=== PATIENT | female | born 1935 | race Caucasian/White ===

== ENCOUNTER 2021-04-22 15:49 | Inpatient (IN) | payer MEDICARE ==
[2021-04-22 16:56] LABS: Anisocytosis Slight; Basophils % (A) 0 %; Eosinophils # (A) 0.1 k/uL (0-0.7); Eosinophils % (A) 0 %; HCT 33.6 % (34.0-46.0); HGB 10.7 gm/dL (11.4-16.0); Lymphocytes # (A) 0.3 k/uL (1.0-4.8); Lymphocytes % (A) 1 %; MCH 29.8 pg (25.0-35.0); MCHC 31.9 g/dL (31.0-37.0); MCV 93.3 fL (80.0-100.0); Mean Platelet Volume 8.6; Monocytes # (A) 0.2 k/uL (0-1.0); Monocytes % (A) 1 %; Neutrophils # (A) 17.7 k/uL (1.3-7.7); Neutrophils % (A) 97 %; Platelet Count 148 k/uL (150-450); RDW 16.1 % (11.5-15.5); WBC 18.2 k/uL (3.8-10.6)
[2021-04-22 17:04] LABS: INR 1.1 (<1.2); Partial Thromboplastin Time 24.1 sec (22.0-30.0); Prothrombin Time 11.8 sec (9.0-12.0)
[2021-04-22 17:09] LABS: Albumin 3.1 g/dL (3.5-5.0); C Reactive Protein 1.8 mg/dL (<1.0); Calcium 8.2 mg/dL (8.4-10.2); Magnesium 2.2 mg/dL (1.6-2.3); Total Bilirubin 0.6 mg/dL (0.2-1.3); Total Protein 5.6 g/dL (6.3-8.2)
[2021-04-22 17:13] LABS: Potassium 6.2 mmol/L (3.5-5.1)
[2021-04-22] MEDS ORDERED: ALBUTEROL HFA INHALER INHALATION STA (17:13)
[2021-04-22] MEDS ORDERED: DEXAMETHASONE SOD PHOSPHATE 10 MG/ML 1 ML VIAL IVP STA (17:13)
--- NOTE | 2021-04-22 17:14 | ED ---
General Adult HPI - General Source: patient, EMS Mode of arrival: EMS Limitations: no limitations <Jordon Mott - Last Filed: 04/22/21 19:19> <Brian Rosario - Last Filed: 04/23/21 00:18> - General Chief complaint: Shortness of Breath Stated complaint: ASPEN Time Seen by Provider: 04/22/21 16:07 - History of Present Illness Initial comments: 85-year-old female with a past medical history of atrial fibrillation, COPD, diabetes mellitus, GERD, hyperlipidemia presents to the emergency room for a chief complaint of shortness of breath. Patient is covid positive as of 5 days ago. Patient wears 3 L nasal cannula at home, was apparently on 80% and so they had to increase it to 5. Patient was sent in to the emergency room. Patient states she has felt short of breath for months, generally a poor historian .Patient has no other complaints at this time including chest pain, abdominal pain, nausea or vomiting, headache, or visual changes. Additional history was obtained from [facility] at [facility]. Patient is a new dialysis patient from February. Patient is a Thursday dialysis patient. Fortunately this past Thursday patient had incomplete dialysis session and was only on for 2 hours 8 minutes. This is secondary to a cath flow issue. She has been increasingly short of breath and requiring oxygen according to nurse practitioner. (Jordon Mott) - Related Data Home Medications Medication Instructions Recorded Confirmed Amiodarone [Cordarone] 200 mg PO DAILY@0600 04/07/21 04/22/21 Apixaban [Eliquis] 2.5 mg PO BID@0600,1700 04/07/21 04/22/21 Atorvastatin [Lipitor] 10 mg PO HS@2100 04/07/21 04/22/21 Calcium Carbonate [Tums] 500 mg PO BID@0800,1700 04/07/21 04/22/21 Famotidine [Pepcid] 20 mg PO DAILY@0600 04/07/21 04/22/21 Fluticasone/Vilanterol [Breo 1 puff INHALATION RT-DAILY@0600 04/07/21 04/22/21 Ellipta 200-25 Mcg Inhaler] HYDROcodone/APAP 5-325MG [[place] 1 tab PO QID PRN 04/07/21 04/22/21 5-325] INSULIN ASPART (NovoLOG) [NovoLOG See Protocol SQ ACHS 04/07/21 04/22/21 (formulary)] Ipratropium-Albuterol Nebulize 3 ml INHALATION RT-QID PRN 04/07/21 04/22/21 [Duoneb 0.5 mg-3 mg/3 ml Soln] Levothyroxine Sodium [Levoxyl] 88 mcg PO DAILY@0600 04/07/21 04/22/21 Metoprolol Tartrate [Lopressor] 25 mg PO BID@0800,1700 04/07/21 04/22/21 Mirtazapine 7.5 mg PO HS@2100 04/07/21 04/22/21 Sevelamer [Renvela] 800 mg PO TID@0800,1200,1700 04/07/21 04/22/21 dronabinoL [Marinol] 2.5 mg PO BID@0600,1700 04/07/21 04/22/21 Cefdinir 300 mg PO BID@0600,2100 04/22/21 04/22/21 Liquacel 30 ml PO BID@1200,1700 04/22/21 04/22/21 Menthol-Zinc Oxide Oint 1 applic TOPICAL BID 04/22/21 04/22/21 [Calmoseptine Oint] bisacodyL [Dulcolax] 10 mg RECTAL DAILY PRN 04/22/21 04/22/21 dexAMETHasone ORAL [Hexadrol] 6 mg PO DAILY@0600 04/22/21 04/22/21 Allergies Allergy/AdvReac Type Severity Reaction Status Date / Time No Known Allergies Allergy Verified 04/22/21 18:19 Review of Systems ROS Other: All systems not noted in ROS Statement are negative. <Jordon Mott - Last Filed: 04/22/21 19:19> ROS Other: All systems not noted in ROS Statement are negative. <Brian Rosario - Last Filed: 04/23/21 00:18> ROS Statement: Those systems with pertinent positive or pertinent negative responses have been documented in the HPI. Past Medical History Past Medical History: Atrial Fibrillation, COPD, Diabetes Mellitus, GERD/Reflux, Hyperlipidemia History of Any Multi-Drug Resistant Organisms: None Reported Past Anesthesia/Blood Transfusion Reactions: No Reported Reaction Past Psychological History: No Psychological Hx Reported Smoking Status: Never smoker <Jordon Mott - Last Filed: 04/22/21 19:19> General Exam Limitations: no limitations General appearance: alert, in no apparent distress Head exam: Present: atraumatic Eye exam: Present: normal appearance, PERRL, EOMI. Absent: scleral icterus, conjunctival injection ENT exam: Present: normal exam, mucous membranes moist Neck exam: Present: normal inspection, full ROM. Absent: tenderness Respiratory exam: Present: normal lung sounds bilaterally. Absent: respiratory distress, wheezes Cardiovascular Exam: Present: regular rate, normal rhythm, normal heart sounds GI/Abdominal exam: Present: soft, normal bowel sounds. Absent: distended, tenderness <Jordon Mott - Last Filed: 04/22/21 19:19> Course Vital Signs 04/22/21 04/22/21 04/22/21 15:51 17:44 18:01 Temperature 98.9 F Pulse Rate 80 95 98 Pulse Rate [ Left Supine Brachial] Respiratory 20 18 20 Rate Blood Pressure 110/60 125/76 Blood Pressure [Left Arm Supine] O2 Sat by Pulse 100 91 L Oximetry 04/22/21 04/22/21 04/22/21 20:19 20:53 22:20 Temperature 98.8 F Pulse Rate 101 H 106 H Pulse Rate [ 93 Left Supine Brachial] Respiratory 22 22 24 Rate Blood Pressure 127/86 136/89 Blood Pressure 153/96 [Left Arm Supine] O2 Sat by Pulse 91 L 90 L Oximetry EKG Findings - EKG Comments: EKG Findings:: Atrial flutter, ventricular rate 90, QRS duration 116, QTc 474 <Jordon Mott - Last Filed: 04/22/21 19:19> Medical Decision Making - Lab Data Result diagrams: 04/22/21 16:43 04/22/21 16:43 <Jordon Mott - Last Filed: 04/22/21 19:19> - Lab Data Result diagrams: 04/22/21 16:43 04/22/21 23:03 <Brian Rosario - Last Filed: 04/23/21 00:18> - Medical Decision Making Patient is requiring 5-6 L nasal cannula. She is moderately short of breath on exam. CBC does show leukocytosis which appears chronic for patient. CMP does show a creatinine of 9.56 as well as a potassium of 6.2. Chest x-ray is requiring new mild pulmonary congestion and interstitial edema consistent with CHF and small pleural effusions. Case was discussed with Dr. Lozoya and patient will be receiving emergent dialysis tonight. Given a dose of lasix as she does produce some urine. Case discussed with Dr. Jo who does except admission. We will draw cultures off of her cath and hold Rocephin until she gets dialysis. Confirmed patient is a DO NOT RESUSCITATE from [facility]. Blood cultures/abx were not obtained within 3 hours as admitting requested that cultures be drawn from patient's Hemo-Cath which required communications technologist (Jordon Mott) - Lab Data Lab Results 04/22/21 04/22/21 04/22/21 Range/Units 16:43 16:43 16:43 WBC 18.2 H (3.8-10.6) k/uL RBC 3.60 L (3.80-5.40) m/uL Hgb 10.7 L (11.4-16.0) gm/dL Hct 33.6 L (34.0-46.0) % MCV 93.3 (80.0-100.0) fL MCH 29.8 (25.0-35.0) pg MCHC 31.9 (31.0-37.0) g/dL RDW 16.1 H (11.5-15.5) % Plt Count 148 L (150-450) k/uL MPV 8.6 Neutrophils % 97 % Lymphocytes % 1 % Monocytes % 1 % Eosinophils % 0 % Basophils % 0 % Neutrophils # 17.7 H (1.3-7.7) k/uL Lymphocytes # 0.3 L (1.0-4.8) k/uL Monocytes # 0.2 (0-1.0) k/uL Eosinophils # 0.1 (0-0.7) k/uL Basophils # 0.0 (0-0.2) k/uL Anisocytosis Slight PT 11.8 (9.0-12.0) sec INR 1.1 (<1.2) APTT 24.1 (22.0-30.0) sec Sodium 135 L (137-145) mmol/L Potassium 6.2 H* (3.5-5.1) mmol/L Chloride 101 (98-107) mmol/L Carbon Dioxide 21 L (22-30) mmol/L Anion Gap 13 mmol/L BUN 100 H (7-17) mg/dL Creatinine 9.56 H* (0.52-1.04) mg/dL Est GFR (CKD-EPI)AfAm 4 (>60 ml/min/1.73 sqM) Est GFR (CKD-EPI)NonAf 3 (>60 ml/min/1.73 sqM) Glucose 95 (74-99) mg/dL Calcium 8.2 L (8.4-10.2) mg/dL Magnesium 2.2 (1.6-2.3) mg/dL Ferritin 1498.0 H (10.0-291.0) ng/mL Total Bilirubin 0.6 (0.2-1.3) mg/dL AST 25 (14-36) U/L ALT 26 (4-34) U/L Alkaline Phosphatase 86 (38-126) U/L Lactate Dehydrogenase 1020 H (313-618) U/L C-Reactive Protein 1.8 H (<1.0) mg/dL Total Protein 5.6 L (6.3-8.2) g/dL Albumin 3.1 L (3.5-5.0) g/dL Procalcitonin (0.02-0.09) ng/mL Coronavirus (PCR) (Not Detectd) 04/22/21 04/22/21 Range/Units 16:43 16:43 WBC (3.8-10.6) k/uL RBC (3.80-5.40) m/uL Hgb (11.4-16.0) gm/dL Hct (34.0-46.0) % MCV (80.0-100.0) fL MCH (25.0-35.0) pg MCHC (31.0-37.0) g/dL RDW (11.5-15.5) % Plt Count (150-450) k/uL MPV Neutrophils % % Lymphocytes % % Monocytes % % Eosinophils % % Basophils % % Neutrophils # (1.3-7.7) k/uL Lymphocytes # (1.0-4.8) k/uL Monocytes # (0-1.0) k/uL Eosinophils # (0-0.7) k/uL Basophils # (0-0.2) k/uL Anisocytosis PT (9.0-12.0) sec INR (<1.2) APTT (22.0-30.0) sec Sodium (137-145) mmol/L Potassium (3.5-5.1) mmol/L Chloride (98-107) mmol/L Carbon Dioxide (22-30) mmol/L Anion Gap mmol/L BUN (7-17) mg/dL Creatinine (0.52-1.04) mg/dL Est GFR (CKD-EPI)AfAm (>60 ml/min/1.73 sqM) Est GFR (CKD-EPI)NonAf (>60 ml/min/1.73 sqM) Glucose (74-99) mg/dL Calcium (8.4-10.2) mg/dL Magnesium (1.6-2.3) mg/dL Ferritin (10.0-291.0) ng/mL Total Bilirubin (0.2-1.3) mg/dL AST (14-36) U/L ALT (4-34) U/L Alkaline Phosphatase (38-126) U/L Lactate Dehydrogenase (313-618) U/L C-Reactive Protein (<1.0) mg/dL Total Protein (6.3-8.2) g/dL Albumin (3.5-5.0) g/dL Procalcitonin 1.05 H (0.02-0.09) ng/mL Coronavirus (PCR) Detected A (Not Detectd) Disposition Is patient prescribed a controlled substance at d/c from ED?: No Time of Disposition: 18:13 <Jordon Mott - Last Filed: 04/22/21 19:19> <Brian Rosario - Last Filed: 04/23/21 00:18> Clinical Impression: CHF (congestive heart failure), Pleural effusion, left, Volume overload, Hyperkalemia, Acute respiratory failure with hypoxia, COVID-19, Renal failure syndrome Disposition: ADMITTED IP TO THIS HOSP
[2021-04-22] MEDS ORDERED: DEXTROSE 50% SYRINGE 50 ML IVP ONE (17:31)
[2021-04-22] MEDS ORDERED: ALBUTEROL NEB (CONC) 2.5 MG/0.5 ML INHALATION ONE (17:31)
[2021-04-22] MEDS ORDERED: SODIUM BICARB 8.4% 50 ML SYR (1 MEQ/ML) IV ONE (17:31)
[2021-04-22] MEDS ORDERED: INSULIN REGULAR 100 UNIT/ML VIAL (IV) IV ONE (17:31)
[2021-04-22] MEDS ORDERED: FUROSEMIDE 10 MG/ML 4 ML VIAL IV STA (17:41)
--- NOTE | 2021-04-22 17:44 | XR ---
EXAMINATION TYPE: XR chest 1V portable DATE OF EXAM: 04/22/2021 COMPARISON: 04/14/2021 HISTORY: Short of breath TECHNIQUE: Single view FINDINGS: There is pulmonary vascular congestion. There is slight blunting of the costophrenic angles . There are chest leads. There is right central venous catheter with tip in the superior vena cava. IMPRESSION: There is new mild pulmonary congestion and interstitial edema compared to old exam and co nsistent with congestive heart failure. Small pleural effusions.
[2021-04-22] MEDS ORDERED: cefTRIAXone IN SWFI 1,000 MG/10 ML SYRINGE IVP STA (18:13)
[2021-04-22] MEDS ORDERED: NALOXONE 0.4 MG/ML 1 ML VIAL IV PRN (18:14)
[2021-04-22] MEDS ORDERED: MELATONIN 5 MG TABLET PO PRN (23:12)
[2021-04-22] MEDS ORDERED: HYDROcodone/APAP 5-325MG 1 EACH TAB PO PRN (23:12)
[2021-04-22] MEDS ORDERED: IPRATROPIUM-ALBUTEROL 3 ML NEB INHALATION PRN (23:12)
--- NOTE | 2021-04-22 23:13 | P.HPIM ---
History of Present Illness H&P Date: 04/22/21 The patient is an 85-year-old female with an extensive PMH including hypertension, ESRD on hemodialysis, hyperlipidemia, A. fib on Eliquis, type II DM, and COPD with chronic hypoxic respiratory failure on 3 L nasal cannula oxygen continuously, resident of [facility] who was sent in due to complaints of shortness of breath. The patient was confused at time of interview and thereby history supplemented from the chart. The patient was reportedly found to be COVID+ 5 days ago and her oxygen had to be turned up to 5 L/min. Furthermore, the patients last dialysis session was cut short this past Thursday due to inadequate flow from the dialysis catheter. Due to the worsening shortness of breath and inability to undergo complete dialysis, the patient was sent to the emergency room. At time of interview, the patient was undergoing hemodialysis. She reported feeling better but did state a chronic nonproductive cough for several years. She denied any active complaints otherwise. She denied fever, chills, urinary complaints, nausea, vomiting, abdominal pain, diarrhea. Chest x-ray the emergency room was consistent with fluid overload. EKG revealed atrial flutter with variable AV block at 90 bpm. Laboratory evaluation was remarkable for leukocytosis of 18.2, hemoglobin 10.7 (at baseline), platelet count 148 (baseline 160), sodium 135, potassium 6.2, BUN 100, creatinine 9.56, and coronavirus PCR positive. Review of systems: Pertinent positives and negatives as discussed in HPI, a complete review of systems was performed and all other systems are negative. Physical examination: General: non toxic, no distress, appears at stated age, normal weight Derm: no unusual rashes/lesions, abdominal suprapubic ecchymosis noted, warm, dry Head: atraumatic, normocephalic, symmetric Eyes: EOMI, no lid lag, anicteric sclera, pupils equal round reactive to light ENT: Nose and ears atraumatic, no thrush, no pharyngeal erythema Neck: No thyromegaly, no cervical lymphadenopathy, trachea midline, supple Mouth: no lip lesion, mucus membranes moist Cardiovascular: S1S2 reg, no murmur, positive posterior tibial pulse bilateral, no edema, capillary refill less than 2 seconds, right chest dialysis access catheter noted Lungs: Mild bibasilar rales, no wheezing or rhonchi, no accessory muscle use Abdominal: soft, nontender to palpation, no guarding, no appreciable organomegaly, normal bowel sounds Ext: no gross muscle atrophy, muscle strength 5 out of 5 in all 4 extremities grossly, no contractures, Neuro: CN II-XI grossly intact, light touch intact all 4 extremities, finger to nose within normal limits, Psych: Alert, oriented to person and place, not fully oriented to time Assessment/plan Acute on chronic hypoxic respiratory failure secondary to COVID 19 pneumonia -Supplemental oxygen -Continue with Decadron -Zinc, vitamin C, vitamin D, melatonin ESRD on hemodialysis with hyperkalemia -Undergoing hemanalysis currently Leukocytosis -Unclear source -Follow-up UA -F/u blood cultures Chronic conditions: HTN, HLD, COPD, Afib -C/w home meds DVT prophylaxis -Eliquis The patient is admitted with an anticipated greater than 2 midnight stay for evaluation of SOB CODE STATUS: No Code Discussed with: Patient Anticipated discharge date: 2-[address]: [facility] Past Medical History Past Medical History: Atrial Fibrillation, COPD, Diabetes Mellitus, GERD/Reflux, Hyperlipidemia History of Any Multi-Drug Resistant Organisms: None Reported Past Anesthesia/Blood Transfusion Reactions: No Reported Reaction Past Psychological History: No Psychological Hx Reported Smoking Status: Never smoker Medications and Allergies Home Medications Medication Instructions Recorded Confirmed Type Amiodarone [Cordarone] 200 mg PO DAILY@0600 04/07/21 04/22/21 History Apixaban [Eliquis] 2.5 mg PO BID@0600,1700 04/07/21 04/22/21 History Atorvastatin [Lipitor] 10 mg PO HS@2100 04/07/21 04/22/21 History Calcium Carbonate [Tums] 500 mg PO BID@0800,1700 04/07/21 04/22/21 History Famotidine [Pepcid] 20 mg PO DAILY@0600 04/07/21 04/22/21 History Fluticasone/Vilanterol [Breo 1 puff INHALATION RT-DAILY@0600 04/07/21 04/22/21 History Ellipta 200-25 Mcg Inhaler] HYDROcodone/APAP 5-325MG [[place] 1 tab PO QID PRN 04/07/21 04/22/21 History 5-325] INSULIN ASPART (NovoLOG) [NovoLOG See Protocol SQ ACHS 04/07/21 04/22/21 History (formulary)] Ipratropium-Albuterol Nebulize 3 ml INHALATION RT-QID PRN 04/07/21 04/22/21 History [Duoneb 0.5 mg-3 mg/3 ml Soln] Levothyroxine Sodium [Levoxyl] 88 mcg PO DAILY@0600 04/07/21 04/22/21 History Metoprolol Tartrate [Lopressor] 25 mg PO BID@0800,1700 04/07/21 04/22/21 History Mirtazapine 7.5 mg PO HS@2100 04/07/21 04/22/21 History Sevelamer [Renvela] 800 mg PO TID@0800,1200,1700 04/07/21 04/22/21 History dronabinoL [Marinol] 2.5 mg PO BID@0600,1700 04/07/21 04/22/21 History Cefdinir 300 mg PO BID@0600,2100 04/22/21 04/22/21 History Liquacel 30 ml PO BID@1200,1700 04/22/21 04/22/21 History Menthol-Zinc Oxide Oint 1 applic TOPICAL BID 04/22/21 04/22/21 History [Calmoseptine Oint] bisacodyL [Dulcolax] 10 mg RECTAL DAILY PRN 04/22/21 04/22/21 History dexAMETHasone ORAL [Hexadrol] 6 mg PO DAILY@0600 04/22/21 04/22/21 History Allergies Allergy/AdvReac Type Severity Reaction Status Date / Time No Known Allergies Allergy Verified 04/22/21 18:19 Physical Exam Vitals: Vital Signs Temp Pulse Pulse Resp BP BP Pulse Ox 04/22/21 20:53 98.8 F 93 22 153/96 04/22/21 20:19 101 H 22 127/86 91 L 04/22/21 18:01 98 20 04/22/21 17:44 95 18 125/76 91 L 04/22/21 15:51 98.9 F 80 20 110/60 100 Intake and Output 04/22/21 04/22/21 04/22/21 06:59 14:59 22:59 Other: Weight 66.678 kg Results CBC & Chem 7: 04/22/21 16:43 04/22/21 16:43 Labs: Abnormal Lab Results - Last 24 Hours (Table) 04/22/21 04/22/21 04/22/21 Range/Units 16:43 16:43 16:43 WBC 18.2 H (3.8-10.6) k/uL RBC 3.60 L (3.80-5.40) m/uL Hgb 10.7 L (11.4-16.0) gm/dL Hct 33.6 L (34.0-46.0) % RDW 16.1 H (11.5-15.5) % Plt Count 148 L (150-450) k/uL Neutrophils # 17.7 H (1.3-7.7) k/uL Lymphocytes # 0.3 L (1.0-4.8) k/uL Sodium 135 L (137-145) mmol/L Potassium 6.2 H* (3.5-5.1) mmol/L Carbon Dioxide 21 L (22-30) mmol/L BUN 100 H (7-17) mg/dL Creatinine 9.56 H* (0.52-1.04) mg/dL Calcium 8.2 L (8.4-10.2) mg/dL Lactate Dehydrogenase 1020 H (313-618) U/L C-Reactive Protein 1.8 H (<1.0) mg/dL Total Protein 5.6 L (6.3-8.2) g/dL Albumin 3.1 L (3.5-5.0) g/dL Coronavirus (PCR) Detected A (Not Detectd)
[2021-04-23 00:11] LABS: Glucose,Whole Blood 133 mg/dL (75-99)
[2021-04-23 03:07] LABS: HCT 30.2 % (34.0-46.0); MCH 30.9 pg (25.0-35.0); MCHC 33.2 g/dL (31.0-37.0); MCV 92.9 fL (80.0-100.0); Mean Platelet Volume 8.1; Platelet Count 116 k/uL (150-450); RBC 3.24 m/uL (3.80-5.40); RDW 15.6 % (11.5-15.5); WBC 15.1 k/uL (3.8-10.6)
[2021-04-23 03:30] LABS: Calcium 7.5 mg/dL (8.4-10.2); Potassium 5.2 mmol/L (3.5-5.1)
[2021-04-23 05:59] LABS: Glucose,Whole Blood 89 mg/dL (75-99)
[2021-04-23] MEDS ORDERED: APIXABAN 2.5 MG TABLET PO SCH (06:00)
[2021-04-23] MEDS: INSULIN ASPART (NovoLOG) 100 UNIT/ML VIAL SQ SCH ×4 (06:35→22:20)
[2021-04-23] MEDS: LEVOTHYROXINE 88 MCG TAB PO SCH (06:45)
[2021-04-23] MEDS: AMIODARONE 200 MG TAB PO SCH (06:45)
[2021-04-23] MEDS: METOPROLOL TARTRATE 25 MG TAB PO SCH ×2 (07:51→17:38)
[2021-04-23] MEDS: SYMBICORT 160-4.5 MCG INHALER INHALATION SCH ×3 (08:36→20:24)
[2021-04-23] MEDS: ALBUTEROL HFA INHALER INHALATION PRN ×3 (09:15→15:24)
--- NOTE | 2021-04-23 09:16 | P.CNPUL ---
History of Present Illness Consult date: 04/23/21 Reason for consult: dyspnea, hypoxemia, pneumonia History of present illness: I was asked to evaluate this patient because of an acute on chronic hypoxic respiratory failure secondary to COVID 19 pneumonia. The patient is known to have incisional disease and the patient on hemodialysis. The patient also known to have COPD, chronic atrial fibrillation, hypertension, hyperlipidemia.. The patient is usually on 3 L of oxygen by nasal cannula. The patient is a [facility] resident. The patient was noted to be more short of breath. Note that the patient was hospitalized on 04/07/2021 for respiratory failure and at that time the patient was also treated for volume overload and possible infection the patient was given IV antibiotics and BiPAP for respiratory support. Note that initial over 19 testing on 04/07/2021 was negative. Subsequent testing a 04/12/2021, 04/15/2021 and 04/22/2021 came back all positive. Note that the patient's vaccination status is unknown. She was having issues with oxygenation and her oxygen flow was brought up to 5 L per minute nasal cannula. She undergoes dialysis 3 times a week and her dialysis on Thursday was cut short due to inadequate flow from the dialysis catheter. Based on that, the patient was brought into the hospital for further evaluation. The patient reported some chronic nonproductive cough. She denies having any other active complaints. No reported fever. No reported chills. No nausea. No vomiting. No abdominal pain. No chest pain. Chest x-ray was done in the emergency department was consistent with fluid overload. The patient was sent and was at 15.1 with a hem oglobin of 10 and a platelet count of 116. The sodium was 135 with a potassium level of 6.2 with a chloride of 11 her bicarb level XXI. BUN was 100 and a creatinine was at 9.5. The ferritin level was 1498. The LDH level was 1020 and a CRP level was at 1.8. Total protein was 5.6. LFTs were essentially within normal limits. Calcium level is at 8.2. Coagulation profile was essentially within normal limits. Underwent hemodialysis yesterday and the repeat electrolytes show a sodium level of 131, potassium level is down to 5.2 and the creatinine is down to 6.46 with a BUN of 65. Morning blood sugar is at 89. Overnight, the oxygenation also got more impaired and the patient has been brou ght up to 10 L of Oxymizer nasal cannula. She is on long-term anticoagulant with Eliquis 2.5 mg twice a day. She is also started on Decadron 6 mg IV every 24 hours. Outpatient medications have been ordered resume. Review of Systems Constitutional: Reports fatigue, Reports lethargy, Reports weakness Eyes: denies as per HPI, denies blurred vision, denies bulging eye, denies decreased vision, denies diplopia, denies discharge, denies dry eye, denies irritation, denies itching, denies pain, denies photophobia, denies loss of peripheral vision, denies loss of vision, denies tunnel vision/blind spots Ears: deny: decreased hearing, ear discharge, earache, tinnitus Ears, nose, mouth and throat: Reports as per HPI Breasts: absent: as per HPI, change in shape, gynecomastia, masses, nipple discharge, pain, skin changes, swelling Cardiovascular: Reports decreased exercise tolerance, Reports dyspnea on exertion, Reports irregular heart beat, Reports shortness of breath Respiratory: Reports dyspnea, Reports home oxygen Gastrointestinal: Reports as per HPI Genitourinary: Reports as per HPI (Patient is on dialysis and the patient has a permacath in the right IJ) Menstruation: Reports as per HPI Musculoskeletal: Reports as per HPI Musculoskeletal: absent: ankle pain, ankle stiffness, ankle swelling Integumentary: Reports as per HPI Neurological: Reports as per HPI Psychiatric: Reports as per HPI Endocrine: Reports as per HPI Hematologic/Lymphatic: Reports as per HPI Allergic/Immunologic: Reports as per HPI Past Medical History Past Medical History: Atrial Fibrillation, COPD, Diabetes Mellitus, GERD/Reflux, Hyperlipidemia Additional Past Medical History / Comment(s): End stage renal disease currently on dialysis 3 times a week, COPD, chronic pressure sore failure, [facility] resident History of Any Multi-Drug Resistant Organisms: None Reported Past Anesthesia/Blood Transfusion Reactions: No Reported Reaction Past Psychological History: No Psychological Hx Reported Smoking Status: Never smoker Medications and Allergies Home Medications Medication Instructions Recorded Confirmed Type Amiodarone [Cordarone] 200 mg PO DAILY@0600 04/07/21 04/22/21 History Apixaban [Eliquis] 2.5 mg PO BID@0600,1700 04/07/21 04/22/21 History Atorvastatin [Lipitor] 10 mg PO HS@2100 01/16/22 01/31/22 History Calcium Carbonate [Tums] 500 mg PO BID@0800,1700 04/07/21 04/22/21 History Famotidine [Pepcid] 20 mg PO DAILY@0604/07/21 04/22/21 History Fluticasone/Vilanterol [Breo 1 puff INHALATION RT-DAILY@59904/07/21 04/22/21 History Ellipta 200-25 Mcg Inhaler] HYDROcodone/APAP 5-325MG [[place] 1 tab PO QID PRN 04/07/21 04/22/21 History 5-325] INSULIN ASPART (NovoLOG) [NovoLOG See Protocol SQ ACHS 04/07/21 04/22/21 History (formulary)] Ipratropium-Albuterol Nebulize 3 ml INHALATION RT-QID PRN 04/07/21 04/22/21 History [Duoneb 0.5 mg-3 mg/3 ml Soln] Levothyroxine Sodium [Levoxyl] 88 mcg PO DAILY@0604/07/21 04/22/21 History Metoprolol Tartrate [Lopressor] 25 mg PO BID@0800,169904/07/21 04/22/21 History Mirtazapine 7.5 mg PO HS@209904/07/21 04/22/21 History Sevelamer [Renvela] 800 mg PO TID@0800,1200,169904/07/21 04/22/21 History dronabinoL [Marinol] 2.5 mg PO BID@0600,169904/07/21 04/22/21 History Cefdinir 300 mg PO BID@0600,209904/22/21 04/22/21 History Liquacel 30 ml PO BID@1200,1700 04/22/21 04/22/21 History Menthol-Zinc Oxide Oint 1 applic TOPICAL BID 04/22/21 04/22/21 History [Calmoseptine Oint] bisacodyL [Dulcolax] 10 mg RECTAL DAILY PRN 04/22/21 04/22/21 History dexAMETHasone ORAL [Hexadrol] 6 mg PO DAILY@0600 04/22/21 04/22/21 History Allergies Allergy/AdvReac Type Severity Reaction Status Date / Time No Known Allergies Allergy Verified 04/22/21 18:19 Physical Exam Vitals: Vital Signs Temp Pulse Pulse Pulse Resp BP BP 04/23/21 05:00 98.1 F 110 H 32 H 147/87 04/23/21 04:00 98.4 F 93 19 112/68 04/22/21 22:20 106 H 24 136/89 04/22/21 20:53 98.8 F 93 22 153/96 04/22/21 20:19 101 H 22 127/86 04/22/21 18:01 98 20 04/22/21 17:44 95 18 125/76 04/22/21 15:51 98.9 F 80 20 110/60 Pulse Ox 04/23/21 05:00 91 L 04/23/21 04:00 95 04/22/21 22:20 90 L 04/22/21 20:53 04/22/21 20:19 91 L 04/22/21 18:01 04/22/21 17:44 91 L 04/22/21 15:51 100 Intake and Output 04/22/21 04/23/21 04/23/21 22:59 06:59 14:59 Intake Total 10 0 Balance 10 0 Intake: IV 10 Invasive Line 1 10 Oral 0 Other: Voiding Method Diaper Incontinent # Voids 2 # Bowel Movements 1 Weight 66.678 kg 69 kg GENERAL EXAM: Alert, pleasant, 85-year-old white female on 10 L of oxygen with pulse ox of 93%, symptomatic bunions of the bed, breathing comfortably, c omfortable in no apparent distress. HEAD: Normocephalic/atraumatic. EYES: Normal reaction of pupils, equal size. Conjunctiva pink, sclera white. NOSE: Clear with pink turbinates. THROAT: No erythema or exudates. NECK: No masses, no JVD, no thyroid enlargement, no adenopathy. CHEST: No chest wall deformity. Symmetrical expansion. Right upper chest X-ray hemodialysis catheter is in place, there is a permacath in the right IJ. LUNGS: Equal air entry with no crackles, wheeze, rhonchi or dullness. A few bibasilar crackles present CVS: Regular rate and rhythm, normal S1 and S2, no gallops, no murmurs, no rubs ABDOMEN: Soft, nontender. No hepatosplenomegaly, normal bowel sounds, no guarding or rigidity. EXTREMITIES: No clubbing, no edema, no cyanosis, 2+ pulses and upper and lower extremities. MUSCULOSKELETAL: Muscle strength and tone normal. SPINE: No scoliosis or deformity SKIN: No rashes CENTRAL NERVOUS SYSTEM: Alert and oriented -3. No focal deficits, tone is normal in all 4 extremities. PSYCHIATRIC: Alert and oriented -3. Appropriate affect. Intact judgment and insight. Results - Laboratory Findings CBC and BMP: 04/23/21 02:42 04/23/21 02:42 PT/INR, D-dimer PT 11.8 sec (9.0-12.0) 04/22/21 16:43 INR 1.1 (<1.2) 04/22/21 16:43 Abnormal lab findings: Abnormal Labs 04/22/21 04/22/21 04/22/21 16:43 16:43 16:43 WBC 18.2 H RBC 3.60 L Hgb 10.7 L Hct 33.6 L RDW 16.1 H Plt Count 148 L Neutrophils # 17.7 H Lymphocytes # 0.3 L Sodium 135 L Potassium 6.2 H* Chloride Carbon Dioxide 21 L BUN 100 H Creatinine 9.56 H* POC Glucose (mg/dL) Calcium 8.2 L Ferritin 1498.0 H Lactate Dehydrogenase 1020 H C-Reactive Protein 1.8 H Total Protein 5.6 L Albumin 3.1 L Procalcitonin Coronavirus (PCR) Detected A 04/22/21 04/23/21 04/23/21 16:43 00:10 02:42 WBC 15.1 H RBC 3.24 L Hgb 10.0 L Hct 30.2 L RDW 15.6 H Plt Count 116 L Neutrophils # Lymphocytes # Sodium Potassium Chloride Carbon Dioxide BUN Creatinine POC Glucose (mg/dL) 133 H Calcium Ferritin Lactate Dehydrogenase C-Reactive Protein Total Protein Albumin Procalcitonin 1.05 H Coronavirus (PCR) 04/23/21 02:42 WBC RBC Hgb Hct RDW Plt Count Neutrophils # Lymphocytes # Sodium 131 L Potassium 5.2 H Chloride 97 L Carbon Dioxide BUN 65 H Creatinine 6.46 H POC Glucose (mg/dL) Calcium 7.5 L Ferritin Lactate Dehydrogenase C-Reactive Protein Total Protein Albumin Procalcitonin Coronavirus (PCR) Assessment and Plan Plan: 1. Acute hypoxic respiratory failure , most likely secondary to fluid overload. Chest x-ray showing pulmonary vessel congestion and small effusion the left lung base. The patient was treated for COVID 19 based on an earlier hospitalization. This was an incidental finding. Please refer to the admission that occurred on 04/14/2021. 2. Newly diagnosed COVID-19 infection, patient is asymptomatic, this is a incidental finding as part of the preadmission requirement for ECF placement. Note that patient had a negative COVID-19 PCR on admission on 04/07/2021. Her vaccination status is unclear, patient thinks she is vaccinated, however she is a poor historian she was placed back on Decadron 6 mg by mouth daily. The patient is on long-term articulation with Eliquis 2.5 mg twice a day. 3. chronic CHF with diastolic dysfunction 4. End-stage renal disease on hemodialysis, this was recently initiated after patient sustained acute kidney injury in February following her cholecystectomy. She has a right subclavian temporary hemodialysis catheter in place, she is being dialyzed on Thursday schedule 5. Recent cholecystectomy on 03/08/2021 at [facility] 6. Dementia 7. Chronic A. fib on Eliquis 8. Diabetes mellitus type 2 9. COPD 10. Former smoker, quit smoking 40 years ago, does carry [id number] smoking history 11.Valvular heart disease with mild aortic stenosis and regurgitation, moderate mitral regurgitation, moderate to severe tricuspid regurg and severe pulmonary hypertension with right-sided pressure of 71.4 mmHg 12. CVA 13. Hypertension Plan Noted the patient is still hypoxic despite yesterday's hemodialysis. On examination, the patient is still having increased crackers the mid lower lung santos bilaterally. There may be some ongoing issues with volume overload. She is also known to have COPD and she was infected with COVID 19. Based on all this, I would recommend a repeat hemodialysis ultrafiltration today. This will be [id number] with nephrology. Repeat chest x-ray today. Titrate o xygen for a Saturation above 90%. Proceed with another hemodialysis to optimize volume status Continue antibiotic ventilation with Eliquis 2.5 mg twice a day Utility of Decadron is questionable Monitor the oxygenation and wean down the FiO2 to maintain a saturation above 90% We'll continue to follow. Outpatient medication resume. DNR/DNI CODE STATUS.
--- NOTE | 2021-04-23 09:17 | P.NPCON ---
History of Present Illness - Reason for Consult acute renal failure - History of Present Illness Reason for consultation: Acute kidney injury, hemodialysis dependent. History of present illness: Patient is a 85-year-old female seen in renal consultation for acute kidney injury currently hemodialysis dependent. She is maintained on hemodialysis on a Thursday schedule. From the records it appears that the patient went to hemodialysis on Thursday but the treatment had to be cut short d ue to clotting of the catheter. Patient presented to the hospital with shortness of breath. She underwent hemodialysis last night at 2 L removed. She scheduled to undergo another treatment of hemodialysis today. Patient is resting in bed and is not a very reliable historian. She resides at an extended care facility. She does have history of chronic kidney disease stage III with baseline creatinine is unknown. She is currently on 10 L high flow cannula. Blood pressure stable. No fever. She is also positive for coronavirus. Vital signs are stable. General: The patient appeared well nourished and normally developed. HEENT: Head exam is unremarkable. LUNGS: Breath sounds decreased. HEART: Rate and Rhythm are regular. ABDOMEN: Soft, no distention. EXTREMITITES: No edema. Past Medical History Past Medical History: Atrial Fibrillation, COPD, Diabetes Mellitus, GERD/Reflux, Hyperlipidemia Additional Past Medical History / Comment(s): End stage renal disease currently on dialysis 3 times a week, COPD, chronic pressure sore failure, intermediate resident History of Any Multi-Drug Resistant Organisms: None Reported Past Anesthesia/Blood Transfusion Reactions: No Reported Reaction Past Psychological History: No Psychological Hx Reported Smoking Status: Never smoker Medications and Allergies Home Medications Medication Instructions Recorded Confirmed Type Amiodarone [Cordarone] 200 mg PO DAILY@0600 04/07/21 04/22/21 History Apixaban [Eliquis] 2.5 mg PO BID@0600,1700 04/07/21 04/22/21 History Atorvastatin [Lipitor] 10 mg PO HS@2100 04/07/21 04/22/21 History Calcium Carbonate [Tums] 500 mg PO BID@0800,1700 04/07/21 04/22/21 History Famotidine [Pepcid] 20 mg PO DAILY@0600 04/07/21 04/22/21 History Fluticasone/Vilanterol [Breo 1 puff INHALATION RT-DAILY@0600 04/07/21 04/22/21 History Ellipta 200-25 Mcg Inhaler] HYDROcodone/APAP 5-325MG [[place] 1 tab PO QID PRN 04/07/21 04/22/21 History 5-325] INSULIN ASPART (NovoLOG) [NovoLOG See Protocol SQ ACHS 04/07/21 04/22/21 History (formulary)] Ipratropium-Albuterol Nebulize 3 ml INHALATION RT-QID PRN 04/07/21 04/22/21 History [Duoneb 0.5 mg-3 mg/3 ml Soln] Levothyroxine Sodium [Levoxyl] 88 mcg PO DAILY@0600 04/07/21 04/22/21 History Metoprolol Tartrate [Lopressor] 25 mg PO BID@0800,1700 04/07/21 04/22/21 History Mirtazapine 7.5 mg PO HS@2100 04/07/21 04/22/21 History Sevelamer [Renvela] 800 mg PO TID@0800,1200,1700 04/07/21 04/22/21 History dronabinoL [Marinol] 2.5 mg PO BID@0600,1700 04/07/21 04/22/21 History Cefdinir 300 mg PO BID@0600,2100 04/22/21 04/22/21 History Liquacel 30 ml PO BID@1200,1700 04/22/21 04/22/21 History Menthol-Zinc Oxide Oint 1 applic TOPICAL BID 04/22/21 04/22/21 History [Calmoseptine Oint] bisacodyL [Dulcolax] 10 mg RECTAL DAILY PRN 04/22/21 04/22/21 History dexAMETHasone ORAL [Hexadrol] 6 mg PO DAILY@0600 04/22/21 04/22/21 History Allergies Allergy/AdvReac Type Severity Reaction Status Date / Time No Known Allergies Allergy Verified 04/22/21 18:19 Physical Exam Vitals: Vital Signs Temp Pulse Pulse Pulse Resp BP BP 04/23/21 05:00 98.1 F 110 H 32 H 147/87 04/23/21 04:00 98.4 F 93 19 112/68 04/22/21 22:20 106 H 24 136/89 04/22/21 20:53 98.8 F 93 22 153/96 04/22/21 20:19 101 H 22 127/86 04/22/21 18:01 98 20 04/22/21 17:44 95 18 125/76 04/22/21 15:51 98.9 F 80 20 110/60 Pulse Ox 04/23/21 05:00 91 L 04/23/21 04:00 95 04/22/21 22:20 90 L 04/22/21 20:53 04/22/21 20:19 91 L 04/22/21 18:01 04/22/21 17:44 91 L 04/22/21 15:51 100 Intake and Output 04/22/21 04/23/21 04/23/21 22:59 06:59 14:59 Intake Total 10 0 Balance 10 0 Intake: IV 10 Invasive Line 1 10 Oral 0 Other: Voiding Method Diaper Incontinent # Voids 2 # Bowel Movements 1 Weight 66.678 kg 69 kg Results - Lab Results Most recent lab results Calcium 7.5 mg/dL (8.4-10.2) L 04/23/21 02:42 Magnesium 2.2 mg/dL (1.6-2.3) 04/22/21 16:43 04/23/21 02:42 04/23/21 02:42 Assessment and Plan Plan: Assessment: 1. Acute kidney injury, currently hemodialysis dependent due to ATN in February 2021. 2. History of chronic kidney disease stage IIIb with unknown baseline renal function. 3. Volume overload. 4. Acute hypoxic respiratory failure. 5. COVID-19 infection. 6. Hyperkalemia secondary to acute kidney injury. Improved postdialysis. 7. 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 8. Acute on chronic diastolic CHF with moderate mitral regurgitation, moderate to severe tricuspid regurgitation and severe pulmonary hypertension. Plan: Hemodialysis today. Wean FiO2. No evidence of renal recovery at this time. Thank you for the consult patient. I will continue to follow the patient with you during her hospital stay.
[2021-04-23] MEDS: TIOTROPIUM 2.5 MCG INHALER INHALATION PRN (09:21)
[2021-04-23] MEDS: DEXAMETHASONE SOD PHOSPHATE 10 MG/ML 1 ML VIAL IVP SCH (09:35)
[2021-04-23] MEDS: ASCORBIC ACID 500 MG TAB PO SCH (09:35)
[2021-04-23] MEDS: CHOLECALCIFEROL 125 MCG (5000 IU) TABLET PO SCH (09:35)
[2021-04-23] MEDS: SEVELAMER 800 MG TAB PO SCH ×3 (09:35→17:38)
[2021-04-23] MEDS: ZINC SULFATE 220 MG CAP PO SCH (09:36)
--- NOTE | 2021-04-23 09:52 | XR ---
EXAMINATION TYPE: XR chest 1V portable DATE OF EXAM: 04/23/2021 COMPARISON: Chest x-ray 04/22/2021, 2 view chest x-ray 04/08/2021 HISTORY: Congestive heart failure follow-up TECHNIQUE: Single frontal view of the chest is obtained. FINDINGS: Right-sided jugular central venous catheter is present and stable with the tip overlying t he cavoatrial junction. There is no evident pneumothorax. Interstitium is increased. Patchy basilar d ensity persists. There is a spinal curvature, spondylosis. Heart is likely enlarged, stable. Aorta is dense. There may be a prominent epicardial fat pad. Question mitral annular calcification. IMPRESSION: There may be a component of interstitial lung disease, interstitial edema, difficult to exclude basilar effusion, atelectasis versus edema, correlate to exclude pneumonia
[2021-04-23 10:14] LABS: Hepatitis B Surface AB- Quant 3.5 mIU/mL; Hepatitis B Surface Antibody Nonreactive (Nonreactive); Hepatitis B Surface Antigen Nonreactive (Nonreactive)
--- NOTE | 2021-04-23 11:21 | CDI ---
Documentation Clarification Form Date: 04/23/2021 11:10:59 AM From: Minda Alberto CCS, CCDS Admit Date: 04/22/2021 06:14:00 PM Patient Name: Jailene Veliz Visit Number: [id number] Discharge Date: ATTENTION: The Clinical Documentation Specialists (CDI) and [facility] Coding Staff appreciate your assistance in clarifying documentation. Please respond to the clarification below the line at the bottom and electronically sign. The CDI & [facility] Coding staff will review the response and follow-up if needed. Please note: Queries are made part of the Legal Health Record. If you have any questions, please contact the author of this message via ITS. Dr. Herbert Berry: Per the 04/23 Pulmonary Consult and the 04/23 Nephrology Consult, Chronic pressure sore is documented in the patient's Past Medical History. Per the 04/23 Nursing Wound Assessment: Pressure Injury, POA, Stage II is documented. Additional clarification regarding the stage of the pressure ulcer is requested. History/Risk Factors per the 04/22 H/P: Acute on Chronic Hypoxic Respiratory Failure secondary to COVID 19 Pneumonia, ESRD on Hemodialysis with Hyperkalemia, Leukocytosis, Hypertension, Hyperlipidemia, COPD, Atrial fibrillation. Clinical Indicators: Presented to the ED via EMS on 04/22 from a custodial with SOB. COVID positive 5 days ago. Wears 3L nc O2 normally, PO was 80%, O2 increased to 5. Admit with CHF, Left Pleural Effusion, Volume Overload, Hyperkalemia, Acute Hypoxia Respiratory Failure, COVID 19, Renal Failure syndrome. Pressure Injury Location: Coccyx Wound description: Moist. Treatment: Foam w/border dressing, Blood culture, IV Decadron x1, IV Insulin 10 units x1, IV NaBicarb 50 mls x1, IV Lasix 40 mg x1, IV Rocephin 1,000 mg x1 Please clarify the stage of the coccyx pressure ulcer,, if known: [ ] Stage 1 Pressure Ulcer [ ] Stage 3 Pressure Ulcer [ ] Stage 4 Pressure Ulcer [ ] Unstageable Pressure ulcer [ ] Other condition, please specify: [ ] Unable to determine (Template Last Revised: May 2020) Stage 2 Pressure Ulcer , POA MTDD
[2021-04-23 11:25] LABS: Glucose,Whole Blood 109 mg/dL (75-99)
--- NOTE | 2021-04-23 13:59 | P.PN ---
Subjective Progress Note Date: 04/23/21 (seen at 1030) Principal diagnosis: shortness of breath Patient is an 85-year-old female with end-stage renal disease on hemodialysis Thursday//Thursday, hypertension, dyslipidemia, diabetes mellitus type 2, COPD with chronic respiratory failure on 3 L nasal cannula and multiple other comorbid conditions who presented to the hospital secondary to shortness of b reath. She was recently here from 04/07/21-04/18/21 and was diagnised with COVID during that hospital stay. She should have received 10 days f decadron at this point. She had been found to be covert positive approximately 5 days before admission and was requiring increased oxygenation. She was unable to fully undergo her last hemodialysis treatment secondary to inadequate flow from the catheter. In the ER she underwent an extensive evaluation. Initial chest x- ray demonstrated fluid overload, EKG revealed atrial flutter with variable block at 90, and laboratory analysis was remarkable for a white blood cell count of 18.2, hemoglobin 10.7 (at baseline), platelet count 148 at her baseline, po tassium of 6.2, BUN 100, and creatinine 9.56, she was again positive for COVID- 19 via nucleic acid testing. Patient underwent emergent hemodialysis. Patient seen and examined at bedside. She thinks that she might feel more short of breath from yesterday. No chest pain, feeling stronger, eating and drinking well. General: non toxic, no distress, appears at stated age Derm: warm, dry Head: atraumatic, normocephalic, symmetric Eyes: EOMI, no lid lag, anicteric sclera Mouth: no lip lesion, mucus membranes moist Cardiovascular: S1S2 reg, no murmur, positive posterior tibial pulse bilateral, Lungs: crackels L>R , no accessory muscle use Abdominal: soft, nontender to palpation, no guarding, no appreciable organomegaly Ext: no gross muscle atrophy, trace edema, no contractures Neuro: CN II-XI grossly intact, no focal neuro deficits Psych: Alert, oriented, appropriate affect Acute Exacerbation of Diastolic CHF with EF 50-55%, Severe TR and Severe Pulm HTN - Fluid optimization with HD End-stage renal disease with fluid overload, hyperkalemia Mineral Bone Disease -Status post emergent dialysis 04/22/21 -Nephrology recommendations -Continue with Renvela Recent COVID-19 Acute on chronic hypoxic respiratory failure COPD SIRS, undetermined etiology -Continue with Decadron. It appears that the patient has completed 10 days of dexamethasone. -Continue vitamin C, vitamin D, and zinc -Pulmonary recommendations -When necessary bronchodilators and scheduled Symbicort -Pro calcitonin is markedly elevated at 1 however this is likely secondary to her end-stage renal disease which can raise pro-calcitonin levels. We'll await urinalysis and blood cultures. -Continue to follow chest x-ray -Patient had been getting cefdinir on outpatient basis which is currently held. As she should have completed ABX for CAP from last admission - check D-Dime Diabetes mellitus type 2 insulin requiring -Continue with sliding scale insulin -Appears to only be on sliding scale insulin at baseline Paroxysmal atrial fibrillation/flutter -Continue with Eliquis -Continue with amiodarone, metoprolol Stage 2 Pressure Ulcer, POA - frequent turns - off loading - barrier cream Chronic: GERD HLD Hypothyroidism HX CVA HX of Lap Krystal 03/12 with DIALLO and HD DVT prophylaxis: Eliquis Discussed with: Patient, nursing Anticipated discharge: 2-[address]: return to [facility] A total of 42 minutes was spent on the care of this complex patient more than 50% of the time was spent in counseling and care coordination. Objective - Vital Signs Vital signs: Vital Signs Temp 98.1 F 04/23/21 05:00 Pulse 110 H 04/23/21 05:00 Resp 32 H 04/23/21 05:00 BP 147/87 04/23/21 05:00 Pulse Ox 91 L 04/23/21 05:00 Intake & Output 04/22/21 04/23/21 04/23/21 18:59 06:59 18:59 Intake Total 10 Balance 10 Weight 66.678 kg 69 kg Intake: IV 10 Invasive Line 1 10 Other: Voiding Method Diaper Incontinent # Voids 2 # Bowel Movements 1 - Labs CBC & Chem 7: 04/23/21 02:42 04/23/21 02:42 Labs: Abnormal Lab Results - Last 24 Hours (Table) 04/22/21 04/22/21 04/22/21 Range/Units 16:43 16:43 16:43 WBC 18.2 H (3.8-10.6) k/uL RBC 3.60 L (3.80-5.40) m/uL Hgb 10.7 L (11.4-16.0) gm/dL Hct 33.6 L (34.0-46.0) % RDW 16.1 H (11.5-15.5) % Plt Count 148 L (150-450) k/uL Neutrophils # 17.7 H (1.3-7.7) k/uL Lymphocytes # 0.3 L (1.0-4.8) k/uL Sodium 135 L (137-145) mmol/L Potassium 6.2 H* (3.5-5.1) mmol/L Chloride (98-107) mmol/L Carbon Dioxide 21 L (22-30) mmol/L BUN 100 H (7-17) mg/dL Creatinine 9.56 H* (0.52-1.04) mg/dL POC Glucose (mg/dL) (75-99) mg/dL Calcium 8.2 L (8.4-10.2) mg/dL Ferritin 1498.0 H (10.0-291.0) ng/mL Lactate Dehydrogenase 1020 H (313-618) U/L C-Reactive Protein 1.8 H (<1.0) mg/dL Total Protein 5.6 L (6.3-8.2) g/dL Albumin 3.1 L (3.5-5.0) g/dL Procalcitonin (0.02-0.09) ng/mL Coronavirus (PCR) Detected A (Not Detectd) 04/22/21 04/23/21 04/23/21 Range/Units 16:43 00:10 02:42 WBC 15.1 H (3.8-10.6) k/uL RBC 3.24 L (3.80-5.40) m/uL Hgb 10.0 L (11.4-16.0) gm/dL Hct 30.2 L (34.0-46.0) % RDW 15.6 H (11.5-15.5) % Plt Count 116 L (150-450) k/uL Neutrophils # (1.3-7.7) k/uL Lymphocytes # (1.0-4.8) k/uL Sodium (137-145) mmol/L Potassium (3.5-5.1) mmol/L Chloride (98-107) mmol/L Carbon Dioxide (22-30) mmol/L BUN (7-17) mg/dL Creatinine (0.52-1.04) mg/dL POC Glucose (mg/dL) 133 H (75-99) mg/dL Calcium (8.4-10.2) mg/dL Ferritin (10.0-291.0) ng/mL Lactate Dehydrogenase (313-618) U/L C-Reactive Protein (<1.0) mg/dL Total Protein (6.3-8.2) g/dL Albumin (3.5-5.0) g/dL Procalcitonin 1.05 H (0.02-0.09) ng/mL Coronavirus (PCR) (Not Detectd) 04/23/21 Range/Units 02:42 WBC (3.8-10.6) k/uL RBC (3.80-5.40) m/uL Hgb (11.4-16.0) gm/dL Hct (34.0-46.0) % RDW (11.5-15.5) % Plt Count (150-450) k/uL Neutrophils # (1.3-7.7) k/uL Lymphocytes # (1.0-4.8) k/uL Sodium 131 L (137-145) mmol/L Potassium 5.2 H (3.5-5.1) mmol/L Chloride 97 L (98-107) mmol/L Carbon Dioxide (22-30) mmol/L BUN 65 H (7-17) mg/dL Creatinine 6.46 H (0.52-1.04) mg/dL POC Glucose (mg/dL) (75-99) mg/dL Calcium 7.5 L (8.4-10.2) mg/dL Ferritin (10.0-291.0) ng/mL Lactate Dehydrogenase (313-618) U/L C-Reactive Protein (<1.0) mg/dL Total Protein (6.3-8.2) g/dL Albumin (3.5-5.0) g/dL Procalcitonin (0.02-0.09) ng/mL Coronavirus (PCR) (Not Detectd)
[2021-04-23] MEDS ORDERED: HEPARIN SODIUM 1,000 UN/ML (10ML VL) IV ONE (15:50)
[2021-04-23] MEDS ORDERED: HEPARIN SODIUM 1,000 UN/ML (10ML VL) IV PRN (15:50)
[2021-04-23 16:27] LABS: Glucose,Whole Blood 115 mg/dL (75-99)
--- NOTE | 2021-04-23 16:31 | US ---
EXAMINATION TYPE: US venous doppler duplex LE BI DATE OF EXAM: 04/23/2021 4:19 PM COMPARISON: NONE CLINICAL HISTORY: dvt. Elevated D-dimer SIDE PERFORMED: Bilateral TECHNIQUE: The lower extremity deep venous system is examined utilizing real time linear array sonog kacy with graded compression, doppler sonography and color-flow sonography. VESSELS IMAGED: Common Femoral Vein Deep Femoral Vein Greater Saphenous Vein * Femoral Vein Popliteal Vein Small Saphenous Vein * Proximal Calf Veins (* superficial vessels) Right Leg: Negative for DVT Left Leg: Negative for DVT IMPRESSION: No evidence of DVT at this time.
[2021-04-23 16:52] LABS: Basophils % (A) 0 %; Eosinophils # (A) 0.1 k/uL (0-0.7); Eosinophils % (A) 0 %; HCT 31.7 % (34.0-46.0); HGB 10.3 gm/dL (11.4-16.0); Hypochromasia Slight; Lymphocytes # (A) 0.3 k/uL (1.0-4.8); Lymphocytes % (A) 2 %; MCH 30.5 pg (25.0-35.0); MCHC 32.3 g/dL (31.0-37.0); MCV 94.4 fL (80.0-100.0); Mean Platelet Volume 8.3; Monocytes # (A) 0.3 k/uL (0-1.0); Monocytes % (A) 2 %; Neutrophils # (A) 15.3 k/uL (1.3-7.7); Neutrophils % (A) 96 %; Platelet Count 114 k/uL (150-450); RBC 3.36 m/uL (3.80-5.40); RDW 15.9 % (11.5-15.5)
[2021-04-23 17:11] LABS: INR 1.1 (<1.2); Partial Thromboplastin Time 24.8 sec (22.0-30.0); Prothrombin Time 11.6 sec (9.0-12.0)
[2021-04-23] MEDS: HEPARIN SOD,PORK IN 0.45% NACL 25,000 UNIT in 0.45% NACL 1 250ML.BAG IV SCH (17:50)
[2021-04-23 20:01] LABS: Glucose,Whole Blood 164 mg/dL (75-99)
[2021-04-23] MEDS: ATORVASTATIN 10 MG TAB PO SCH (22:20)
[2021-04-24 02:15] LABS: Glucose,Whole Blood 173 mg/dL (75-99)
[2021-04-24 06:36] LABS: Glucose,Whole Blood 156 mg/dL (75-99)
[2021-04-24] MEDS: LEVOTHYROXINE 88 MCG TAB PO SCH (06:39)
[2021-04-24] MEDS: AMIODARONE 200 MG TAB PO SCH (06:39)
[2021-04-24] MEDS: INSULIN ASPART (NovoLOG) 100 UNIT/ML VIAL SQ SCH ×4 (06:39→20:43)
[2021-04-24 07:03] LABS: Glucose,Whole Blood 166 mg/dL (75-99)
--- NOTE | 2021-04-24 08:05 | CDI ---
Documentation Clarification Form Date: 04/24/2021 07:50:36 AM From: Minda Alberto CCS, CCDS Admit Date: 04/22/2021 06:14:00 PM Patient Name: Jailene Veliz Visit Number: [id number] Discharge Date: ATTENTION: The Clinical Documentation Specialists (CDI) and [facility] Coding Staff appreciate your assistance in clarifying documentation. Please respond to the clarification below the line at the bottom and electronically sign. The CDI & [facility] Coding staff will review the response and follow-up if needed. Please note: Queries are made part of the Legal Health Record. If you have any questions, please contact the author of this message via ITS. Dr. Cheyanne Michel: Atrial Flutter is documented in the 04/22 ED Note, the 04/22 History & Physical and the 04/23 Attending Physician Progress Note without further specificity. Additional clarification regarding the type of Atrial Flutter is requested. History/Risk factors per the 04/22 H/P: Hypertension, ESRD on Hemodialysis, Hyperlipidemia, Atrial Fibrillation on Eliquis, IDDM II, COPD with Chronic Hypoxic Respiratory Failure on home O2: 3L nc and is a resident of a Care Home. Clinical Indicators: Presented to the ED on 04/22 via EMS from a Care Home with SOB. PO 80% on home 3L nc, increased to 5L and sent to the ED. The patient started Dialysis in February, last complete dialysis was on Thursday (). Home Mes: Cordarone, Eliquis, Lipitor, INH Breo & Duoneb and Insulin sq. Admit with CHF, Left Pleural Effusion, Volume Overload, Hyperkalemia, Acute Hypoxic Respiratory Failure, COVID 19 and Renal Failure Syndrome. 04/22 VS: T 98.9, P 30-15-76-101; R 20 (cough), BP 110/60, PO 100 5Lnc - 6Lnc, BMI: 28.8 04/22 LAB: WBC 18.2, Hgb 10.7, Hct 33.6, Pl Ct 148, Neut 17.7, Lymph 0.3; Na 135, K 6.2, CO2 21, BUN 100, Creatinine 9.56, Calcium 8.2, Ferritin 1498.0, LDH 1020, CRP 1.8, Total Protein 5.6, Albumin 3.1, Procalcitonin 1.05 COVID: Positive 04/22 CXR: New mild pulmonary congestion & interstitial edema, CHF, small pleural effusion. 04/22 EKG: R 90 Atrial flutter with variable AV block Treatment 04/22: Hemodialysis, Blood Culture, O2, INH Ventolin x1, IV Decadron 10 mg x1, IV Dextrose/Water 50 mls x1, Insulin 10 units x1, IV NaBicarb 50 ml x1, IV Lasix 40 mg x1, IV Rocephin x1 04/23: Heparin Drip, po Cordarone 200 mg Daily, po Eliquis 2.5 mg BID Cardiology is not consulted. Please clarify the type of Atrial Flutter, if known: [ ] Typical/Type I [ ] Atypical/Type II [ ] Other, please specify [ ] Unable to determine (Template Last Revised: May 2020) Unable to determine MTDD
[2021-04-24] MEDS: ZINC SULFATE 220 MG CAP PO SCH (08:16)
[2021-04-24] MEDS: CHOLECALCIFEROL 125 MCG (5000 IU) TABLET PO SCH (08:16)
[2021-04-24] MEDS: SEVELAMER 800 MG TAB PO SCH ×3 (08:16→16:13)
[2021-04-24] MEDS: METOPROLOL TARTRATE 25 MG TAB PO SCH ×2 (08:16→16:08)
[2021-04-24] MEDS: ASCORBIC ACID 500 MG TAB PO SCH (08:16)
[2021-04-24] MEDS: DEXAMETHASONE SOD PHOSPHATE 10 MG/ML 1 ML VIAL IVP SCH (08:17)
[2021-04-24 08:21] LABS: Anisocytosis Slight; HCT 29.8 % (34.0-46.0); HGB 10.5 gm/dL (11.4-16.0); Hypochromasia Marked; MCH 34.4 pg (25.0-35.0); MCHC 35.1 g/dL (31.0-37.0); MCV 98.1 fL (80.0-100.0); Macrocytosis Slight; Mean Platelet Volume 8.2; RBC 3.04 m/uL (3.80-5.40); RDW 16.2 % (11.5-15.5); WBC 20.5 k/uL (3.8-10.6)
[2021-04-24 08:30] LABS: Calcium 7.8 mg/dL (8.4-10.2); Potassium 4.3 mmol/L (3.5-5.1)
[2021-04-24] MEDS: SYMBICORT 160-4.5 MCG INHALER INHALATION SCH ×2 (09:09→19:49)
[2021-04-24] MEDS: ALBUTEROL HFA INHALER INHALATION PRN ×3 (09:09→19:49)
[2021-04-24] MEDS: TIOTROPIUM 2.5 MCG INHALER INHALATION PRN (09:10)
--- NOTE | 2021-04-24 10:28 | XR ---
EXAMINATION TYPE: XR chest 1V portable DATE OF EXAM: 04/24/2021 COMPARISON: Chest x-ray 04/23/2021 HISTORY: Covid infection, abnormal chest x-ray TECHNIQUE: Single frontal view of the chest is obtained. FINDINGS: Right-sided jugular catheter is stable. Patient is rotated. Cardiac mediastinal silhouette is likely stable. Aorta is dense. No evident pneumothorax. Abnormal density at the left lung base, b lunting the left costophrenic angle is again noted. Interstitium is increased. Deformity the proximal right humerus is again noted and is chronic. There are overlying artifacts. IMPRESSION: Findings are similar to prior exam. Difficult to exclude pneumonia, interstitial edema, small pleural effusion versus atelectasis. Rotated exam.
--- NOTE | 2021-04-24 10:42 | P.PN ---
Subjective Patient is seen in follow-up for acute kidney injury, currently hemodialysis dependent. Tolerated 2 L ultrafiltration yesterday. Blood pressure stable. On 8 L high flow cannula. Vital signs are stable. General: On nasal cannula. HEENT: Head exam is unremarkable. LUNGS: Breath sounds decreased. HEART: Rate and Rhythm are regular. ABDOMEN: No distention. EXTREMITITES: No edema. Objective - Vital Signs Vital signs: Vital Signs Temp 98 F 04/24/21 08:09 Pulse 86 04/24/21 08:09 Resp 25 H 04/24/21 08:09 BP 111/53 04/24/21 08:09 Pulse Ox 95 04/24/21 08:09 Intake & Output 04/23/21 04/24/21 04/24/21 18:59 06:59 18:59 Intake Total 1258 83.414 70.347 Output Total 1999 Balance -742 83.414 70.347 Weight 66.678 kg 67 kg Intake: IV 20 Invasive Line 1 20 Intake, IV Titration 83.414 70.347 Amount Heparin Sod,Pork in 0.45% 83.414 70.347 NaCl 25,000 unit In 0.45 % NaCl 1 250ml.bag @ 18 UNITS/KG/HR 12.002 mls/hr IV .[id number] [facility] Rx#: [id number] Oral 938 Hemodialysis 300 Output: Urine 0 Hemodialysis 1999 Other: # Voids 0 0 # Bowel Movements 1 - Labs CBC & Chem 7: 04/24/21 07:30 04/24/21 07:30 Labs: Abnormal Lab Results - Last 24 Hours (Table) 04/23/21 04/23/21 04/23/21 Range/Units 11:23 14:26 16:16 WBC 16.0 H (3.8-10.6) k/uL RBC 3.36 L (3.80-5.40) m/uL Hgb 10.3 L (11.4-16.0) gm/dL Hct 31.7 L (34.0-46.0) % RDW 15.9 H (11.5-15.5) % Plt Count 114 L (150-450) k/uL Neutrophils # 15.3 H (1.3-7.7) k/uL Lymphocytes # 0.3 L (1.0-4.8) k/uL APTT (22.0-30.0) sec D-Dimer 2.18 H (<0.60) mg/L FEU Sodium (137-145) mmol/L BUN (7-17) mg/dL Creatinine (0.52-1.04) mg/dL Glucose (74-99) mg/dL POC Glucose (mg/dL) 109 H (75-99) mg/dL Calcium (8.4-10.2) mg/dL 04/23/21 04/23/21 04/23/21 Range/Units 16:25 19:59 23:45 WBC (3.8-10.6) k/uL RBC (3.80-5.40) m/uL Hgb (11.4-16.0) gm/dL Hct (34.0-46.0) % RDW (11.5-15.5) % Plt Count (150-450) k/uL Neutrophils # (1.3-7.7) k/uL Lymphocytes # (1.0-4.8) k/uL APTT >200.0 H* (22.0-30.0) sec D-Dimer (<0.60) mg/L FEU Sodium (137-145) mmol/L BUN (7-17) mg/dL Creatinine (0.52-1.04) mg/dL Glucose (74-99) mg/dL POC Glucose (mg/dL) 115 H 164 H (75-99) mg/dL Calcium (8.4-10.2) mg/dL 04/24/21 04/24/21 04/24/21 Range/Units 02:08 06:34 07:01 WBC (3.8-10.6) k/uL RBC (3.80-5.40) m/uL Hgb (11.4-16.0) gm/dL Hct (34.0-46.0) % RDW (11.5-15.5) % Plt Count (150-450) k/uL Neutrophils # (1.3-7.7) k/uL Lymphocytes # (1.0-4.8) k/uL APTT (22.0-30.0) sec D-Dimer (<0.60) mg/L FEU Sodium (137-145) mmol/L BUN (7-17) mg/dL Creatinine (0.52-1.04) mg/dL Glucose (74-99) mg/dL POC Glucose (mg/dL) 173 H 156 H 166 H (75-99) mg/dL Calcium (8.4-10.2) mg/dL 04/24/21 04/24/21 04/24/21 Range/Units 07:30 07:30 07:30 WBC 20.5 H (3.8-10.6) k/uL RBC 3.04 L (3.80-5.40) m/uL Hgb 10.5 L (11.4-16.0) gm/dL Hct 29.8 L (34.0-46.0) % RDW 16.2 H (11.5-15.5) % Plt Count (150-450) k/uL Neutrophils # (1.3-7.7) k/uL Lymphocytes # (1.0-4.8) k/uL APTT >200.0 H* (22.0-30.0) sec D-Dimer (<0.60) mg/L FEU Sodium 130 L (137-145) mmol/L BUN 43 H (7-17) mg/dL Creatinine 5.18 H (0.52-1.04) mg/dL Glucose 161 H (74-99) mg/dL POC Glucose (mg/dL) (75-99) mg/dL Calcium 7.8 L (8.4-10.2) mg/dL Microbiology - Last 24 Hours (Table) 04/22/21 18:15 Blood Culture - Preliminary Blood No Growth after 24 hours 04/22/21 18:00 Blood Culture - Preliminary Blood No Growth after 24 hours Assessment and Plan Plan: Assessment: 1. Acute kidney injury, currently hemodialysis dependent due to ATN in February 2021. 2. History of chronic kidney disease stage IIIb with unknown baseline renal function. 3. Volume overload. 4. Acute hypoxic respiratory failure. 5. COVID-19 infection. 6. Hyperkalemia secondary to acute kidney injury. Improved postdialysis. 7. 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 8. Acute on chronic diastolic CHF with moderate mitral regurgitation, moderate to severe tricuspid regurgitation and severe pulmonary hypertension. 9. A. fib. Rate controlled. Plan: Hemodialysis tomorrow. Wean FiO2. No evidence of renal recovery at this time.
[2021-04-24 11:08] LABS: Glucose,Whole Blood 314 mg/dL (75-99)
[2021-04-24 12:47] LABS: Band Neutrophils % 1 %; Lymphocytes # (M) 1.03 k/uL (1.0-4.8); Monocytes # (M) 0.21 k/uL (0-1.0); Neutrophils % (M) 93 %; Nucleated Red Blood Cells 0 /100 WBC (0-0); Poikilocytosis (M) Present; Total Cells Counted 200
[2021-04-24 12:49] LABS: Platelet Count 168 k/uL (150-450)
--- NOTE | 2021-04-24 13:36 | P.PN ---
Subjective Progress Note Date: 04/24/21 Principal diagnosis: shortness of breath Patient is an 85-year-old female with end-stage renal disease on hemodialysis Thursday//Thursday, hypertension, dyslipidemia, diabetes mellitus type 2, COPD with chronic respiratory failure on 3 L nasal cannula and multiple other comorbid conditions who presented to the hospital secondary to shortness of breath. She was recently here from 04/07/21-04/18/21 and was diagnised with COVID during that hospital stay. She should have received 10 days f decadron at this point. She had been found to be covert positive approximately 5 days before admission and was requiring increased oxygenation. She was unable to fully undergo her last hemodialysis treatment secondary to inadequate flow from the catheter. In the ER she underwent an extensive evaluation. Initial chest x- ray demonstrated fluid overload, EKG revealed atrial flutter with variable block at 90, and laboratory analysis was remarkable for a white blood cell count of 18.2, hemoglobin 10.7 (at baseline), platelet count 148 at her baseline, potassium of 6.2, BUN 100, and creatinine 9.56, she was again positive for COVID-19 via nucleic acid testing. Patient underwent emergent hemodialysis. Her O2 sats continued to worsen. A d-dimer was obtained. Elevated at 2.2. Lower extremity venous Dopplers were negative. She was started on a heparin drip with concerns for pulmonary embolism however we delayed initiating a CTA of the chest as they're hoping for renal recovery. She continued to require more oxygen. Case is discussed with pulmonary and nephrology and is felt she may have continued fluid overload. She will undergo another round of dialysis. Patient seen and examined at bedside. She is feeling more short of breath than yesterday. She denies any chest pain, nausea, vomiting, diarrhea. General: non toxic, no distress, appears at stated age Derm: warm, dry Head: atraumatic, normocephalic, symmetric Eyes: EOMI, no lid lag, anicteric sclera Mouth: no lip lesion, mucus membranes moist Cardiovascular: S1S2 reg, no murmur, positive posterior tibial pulse bilateral, Lungs: crackels bilateral, no accessory muscle use Abdominal: soft, nontender to palpation, no guarding, no appreciable organomegaly Ext: no gross muscle atrophy, trace edema, no contractures Neuro: CN II-XI grossly intact, no focal neuro deficits Psych: Alert, oriented, appropriate affect Acute Exacerbation of Diastolic CHF with EF 50-55%, Severe TR and Severe Pulm HTN - Fluid optimization with HD we'll repeat HD again today. -Lopressor -Not chronically on any inhibitor End-stage renal disease with fluid overload, hyperkalemia Mineral Bone Disease -Status post hd 04/22, 04/23, AND 04/24 -Nephrology recommendations -Continue with Renvela Elevated d-dimer - continue with heparin gtt - venous dopplers negative - if no improvement in oxygenation with HD then will need CTA chest Recent COVID-19 Acute on chronic hypoxic respiratory failure COPD SIRS, undetermined etiology -Continue with Decadron. It appears that the patient has completed 10 days of dexamethasone. -Continue vitamin C, vitamin D, and zinc -Pulmonary recommendations -When necessary bronchodilators and scheduled Symbicort -Pro calcitonin is markedly elevated at 1 however this is likely secondary to her end-stage renal disease which can raise pro-calcitonin levels. We'll await urinalysis and blood cultures. -Continue to follow chest x-ray -Patient had been getting cefdinir on outpatient basis which is currently held. As she should have completed ABX for CAP from last admission Diabetes mellitus type 2 insulin requiring -Continue with sliding scale insulin -Appears to only be on sliding scale insulin at baseline Paroxysmal atrial fibrillation/flutter -Continue with Eliquis -Continue with amiodarone, metoprolol Stage 2 Pressure Ulcer, POA - frequent turns - off loading - barrier cream Chronic: GERD HLD Hypothyroidism HX CVA HX of Lap Krystal 03/12 with DIALLO and HD DVT prophylaxis: Jimmie Discussed with: Patient, nursing, daughter, Dr. Larson, Dr. Norman Anticipated discharge: 5-7days Anticipated discharge place: return to [facility] A total of 35 minutes was spent on the care of this complex patient more than 50% of the time was spent in counseling and Objective - Vital Signs Vital signs: Vital Signs Temp 97.6 F 04/24/21 12:35 Pulse 86 04/24/21 12:35 Resp 28 H 04/24/21 12:35 BP 121/41 04/24/21 12:35 Pulse Ox 95 04/24/21 08:09 Intake & Output 04/23/21 04/24/21 04/24/21 18:59 06:59 18:59 Intake Total 1258 83.414 70.347 Output Total 1999 Balance -742 83.414 70.347 Weight 66.678 kg 67 kg Intake: IV 20 Invasive Line 1 20 Intake, IV Titration 83.414 70.347 Amount Heparin Sod,Pork in 0.45% 83.414 70.347 NaCl 25,000 unit In 0.45 % NaCl 1 250ml.bag @ 18 UNITS/KG/HR 12.002 mls/hr IV .[id number] [facility] Rx#: [id number] Oral 938 Hemodialysis 300 Output: Urine 0 Hemodialysis 1999 Other: Voiding Method Diaper Incontinent # Voids 0 0 # Bowel Movements 1 1 - Labs CBC & Chem 7: 04/24/21 07:30 04/24/21 07:30 Labs: Abnormal Lab Results - Last 24 Hours (Table) 04/23/21 04/23/21 04/23/21 Range/Units 14:26 16:16 16:25 WBC 16.0 H (3.8-10.6) k/uL RBC 3.36 L (3.80-5.40) m/uL Hgb 10.3 L (11.4-16.0) gm/dL Hct 31.7 L (34.0-46.0) % RDW 15.9 H (11.5-15.5) % Plt Count 114 L (150-450) k/uL Neutrophils # 15.3 H (1.3-7.7) k/uL Neutrophils # (Manual) (1.3-7.7) k/uL Lymphocytes # 0.3 L (1.0-4.8) k/uL APTT (22.0-30.0) sec D-Dimer 2.18 H (<0.60) mg/L FEU Sodium (137-145) mmol/L BUN (7-17) mg/dL Creatinine (0.52-1.04) mg/dL Glucose (74-99) mg/dL POC Glucose (mg/dL) 115 H (75-99) mg/dL Calcium (8.4-10.2) mg/dL 04/23/21 04/23/21 04/24/21 Range/Units 19:59 23:45 02:08 WBC (3.8-10.6) k/uL RBC (3.80-5.40) m/uL Hgb (11.4-16.0) gm/dL Hct (34.0-46.0) % RDW (11.5-15.5) % Plt Count (150-450) k/uL Neutrophils # (1.3-7.7) k/uL Neutrophils # (Manual) (1.3-7.7) k/uL Lymphocytes # (1.0-4.8) k/uL APTT >200.0 H* (22.0-30.0) sec D-Dimer (<0.60) mg/L FEU Sodium (137-145) mmol/L BUN (7-17) mg/dL Creatinine (0.52-1.04) mg/dL Glucose (74-99) mg/dL POC Glucose (mg/dL) 164 H 173 H (75-99) mg/dL Calcium (8.4-10.2) mg/dL 04/24/21 04/24/21 04/24/21 Range/Units 06:34 07:01 07:30 WBC 20.5 H (3.8-10.6) k/uL RBC 3.04 L (3.80-5.40) m/uL Hgb 10.5 L (11.4-16.0) gm/dL Hct 29.8 L (34.0-46.0) % RDW 16.2 H (11.5-15.5) % Plt Count (150-450) k/uL Neutrophils # (1.3-7.7) k/uL Neutrophils # (Manual) 19.20 H (1.3-7.7) k/uL Lymphocytes # (1.0-4.8) k/uL APTT (22.0-30.0) sec D-Dimer (<0.60) mg/L FEU Sodium (137-145) mmol/L BUN (7-17) mg/dL Creatinine (0.52-1.04) mg/dL Glucose (74-99) mg/dL POC Glucose (mg/dL) 156 H 166 H (75-99) mg/dL Calcium (8.4-10.2) mg/dL 04/24/21 04/24/21 04/24/21 Range/Units 07:30 07:30 11:02 WBC (3.8-10.6) k/uL RBC (3.80-5.40) m/uL Hgb (11.4-16.0) gm/dL Hct (34.0-46.0) % RDW (11.5-15.5) % Plt Count (150-450) k/uL Neutrophils # (1.3-7.7) k/uL Neutrophils # (Manual) (1.3-7.7) k/uL Lymphocytes # (1.0-4.8) k/uL APTT >200.0 H* (22.0-30.0) sec D-Dimer (<0.60) mg/L FEU Sodium 130 L (137-145) mmol/L BUN 43 H (7-17) mg/dL Creatinine 5.18 H (0.52-1.04) mg/dL Glucose 161 H (74-99) mg/dL POC Glucose (mg/dL) 314 H (75-99) mg/dL Calcium 7.8 L (8.4-10.2) mg/dL Microbiology - Last 24 Hours (Table) 04/22/21 18:15 Blood Culture - Preliminary Blood No Growth after 24 hours 04/22/21 18:00 Blood Culture - Preliminary Blood No Growth after 24 hours
--- NOTE | 2021-04-24 13:42 | P.PN ---
Progress Note - Text Progress Note Date: 04/24/21 Advanced Care Planning: Diagnoses: DIALLO on HD COVID Acute on Chronic Hypoxic Respiratory Failure Discussion: Person(s) present and participating in discussion: Patient at bedside, daughter over the phone Summary: Patient is unsure that she wants to continue with all this treatment and she is tired. I discussed with daughter over the phone at length and all questions answered. She will come up Thursday to discuss with her mom at length goals of care. Patient has been on a down hill spiral since Feb and they may want to discuss how much longer to proceed with standard medical care. A total of 25 minutes of face to face time was spent discussing advanced care planning.
--- NOTE | 2021-04-24 14:13 | P.PN ---
Subjective Progress Note Date: 04/24/21 I was asked to evaluate this patient because of an acute on chronic hypoxic respiratory failure secondary to COVID 19 pneumonia. The patient is known to have incisional disease and the patient on hemodialysis. The patient also known to have COPD, chronic atrial fibrillation, hypertension, hyperlipidemia.. The patient is usually on 3 L of oxygen by nasal cannula. The patient is a [facility] resident. The patient was noted to be more short of breath. Note that the patient was hospitalized on 04/07/2021 for respiratory failure and at that time the patient was also treated for volume overload and possible infection the patient was given IV antibiotics and BiPAP for respiratory support. Note that initial over 19 testing on 04/07/2021 was negative. Subsequent testing a 04/12/2021, 04/15/2021 and 04/22/2021 came back all positive. Note that the patient's vaccination status is unknown. She was having issues with oxygenation and her oxygen flow was brought up to 5 L per minute nasal cannula. She undergoes dialysis 3 times a week and her dialysis on Thursday was cut short due to inadequate flow from the dialysis catheter. Based on that, the patient was brought into the hospital for further evaluation. The patient reported some chronic nonproductive cough. She denies having any other active complaints. No reported fever. No reported chills. No nausea. No vomiting. No abdominal pain. No chest pain. Chest x-ray was done in the emergency department was consistent with fluid overload. The patient was sent and was at 15.1 with a hemoglobin of 10 and a platelet count of 116. The sodium was 135 with a potassium level of 6.2 with a chloride of 11 her bicarb level XXI. BUN was 100 and a creatinine was at 9.5. The ferritin level was 1498. The LDH level was 1020 and a CRP level was at 1.8. Total protein was 5.6. LFTs were essentially within normal limits. Calcium level is at 8.2. Coagulation profile was essentially within normal limits. Underwent hemodialysis yesterday and the repeat electrolytes show a sodium level of 131, potassium level is down to 5.2 and the creatinine is down to 6.46 with a BUN of 65. Morning blood sugar is at 89. Overnight, the oxygenation also got more impaired and the patient has been brought up to 10 L of Oxymizer nasal cannula. She is on long-term anticoagulant with Eliquis 2.5 mg twice a day. She is also started on Decadron 6 mg IV every 24 hours. Outpatient medications have been ordered resume. 04/24/2021, the patient is being seen for a follow-up. The patient continues to BE short of breath and 80 disease of oxygen by nasal cannula. At time of my evaluation, the pulse ox was as low as 84%. Based on that, the patient was placed on 12 L of oxygen by nasal cannula with titrate FiO2 to maintain saturation above 90%. The patient underwent hemodialysis yesterday. A total of 2 L of ultrafiltration was done. Repeat chest x-ray showed persistent bilateral pulmonary interstitial infiltrates which could be fluid versus COVID 19 related limited cough and congestion. She is afebrile. Pulmonary embolism was suspected by the hospitalist and the patient was started on IV heparin. Those being adjusted based on underlying PTT. The patient's white cell count is at 20.4 with a hemoglobin of 10.5 and a platelet count of 168. On today's evaluation the sodium is 130 with a potassium level of 4.3 and a BUN of 43 with a creatinine of 5.18. I discussed the case with the primary care team and nephrology. The patient is going to have another session of hemodialysis today. The Doppler of the lower extremity was done and it was negative for DVT. Objective - Vital Signs Vital signs: Vital Signs Temp 97.6 F 04/24/21 12:35 Pulse 86 04/24/21 12:35 Resp 28 H 04/24/21 12:35 BP 121/41 04/24/21 12:35 Pulse Ox 95 04/24/21 08:09 Intake & Output 04/23/21 04/24/21 04/24/21 18:59 06:59 18:59 Intake Total 1258 83.414 70.347 Output Total 1999 Balance -742 83.414 70.347 Weight 66.678 kg 67 kg Intake: IV 20 Invasive Line 1 20 Intake, IV Titration 83.414 70.347 Amount Heparin Sod,Pork in 0.45% 83.414 70.347 NaCl 25,000 unit In 0.45 % NaCl 1 250ml.bag @ 18 UNITS/KG/HR 12.002 mls/hr IV .[id number] [facility] Rx#: [id number] Oral 938 Hemodialysis 300 Output: Urine 0 Hemodialysis 2000 Other: Voiding Method Diaper Incontinent # Voids 0 0 # Bowel Movements 1 1 - Exam GENERAL EXAM: Alert, pleasant, 85-year-old white female on 15 L of oxygen with pulse ox of 93%, symptomatic bunions of the bed, breathing comfortably, comfortable in no apparent distress. HEAD: Normocephalic/atraumatic. EYES: Normal reaction of pupils, equal size. Conjunctiva pink, sclera white. NOSE: Clear with pink turbinates. THROAT: No erythema or exudates. NECK: No masses, no JVD, no thyroid enlargement, no adenopathy. CHEST: No chest wall deformity. Symmetrical expansion. Right upper chest X-ray hemodialysis catheter is in place, there is a permacath in the right IJ. LUNGS: Equal air entry with no crackles, wheeze, rhonchi or dullness. A few bibasilar crackles present CVS: Regular rate and rhythm, normal S1 and S2, no gallops, no murmurs, no rubs ABDOMEN: Soft, nontender. No hepatosplenomegaly, normal bowel sounds, no guarding or rigidity. EXTREMITIES: No clubbing, no edema, no cyanosis, 2+ pulses and upper and lower extremities. MUSCULOSKELETAL: Muscle strength and tone normal. SPINE: No scoliosis or deformity SKIN: No rashes CENTRAL NERVOUS SYSTEM: Alert and oriented -3. No focal deficits, tone is normal in all 4 extremities. PSYCHIATRIC: Alert and oriented -3. Appropriate affect. Intact judgment and insight. - Labs CBC & Chem 7: 04/24/21 07:30 04/24/21 07:30 Labs: Abnormal Lab Results - Last 24 Hours (Table) 04/23/21 04/23/21 04/23/21 Range/Units 14:26 16:16 16:25 WBC 16.0 H (3.8-10.6) k/uL RBC 3.36 L (3.80-5.40) m/uL Hgb 10.3 L (11.4-16.0) gm/dL Hct 31.7 L (34.0-46.0) % RDW 15.9 H (11.5-15.5) % Plt Count 114 L (150-450) k/uL Neutrophils # 15.3 H (1.3-7.7) k/uL Neutrophils # (Manual) (1.3-7.7) k/uL Lymphocytes # 0.3 L (1.0-4.8) k/uL APTT (22.0-30.0) sec D-Dimer 2.18 H (<0.60) mg/L FEU Sodium (137-145) mmol/L BUN (7-17) mg/dL Creatinine (0.52-1.04) mg/dL Glucose (74-99) mg/dL POC Glucose (mg/dL) 115 H (75-99) mg/dL Calcium (8.4-10.2) mg/dL 04/23/21 04/23/21 04/24/21 Range/Units 19:59 23:45 02:08 WBC (3.8-10.6) k/uL RBC (3.80-5.40) m/uL Hgb (11.4-16.0) gm/dL Hct (34.0-46.0) % RDW (11.5-15.5) % Plt Count (150-450) k/uL Neutrophils # (1.3-7.7) k/uL Neutrophils # (Manual) (1.3-7.7) k/uL Lymphocytes # (1.0-4.8) k/uL APTT >200.0 H* (22.0-30.0) sec D-Dimer (<0.60) mg/L FEU Sodium (137-145) mmol/L BUN (7-17) mg/dL Creatinine (0.52-1.04) mg/dL Glucose (74-99) mg/dL POC Glucose (mg/dL) 164 H 173 H (75-99) mg/dL Calcium (8.4-10.2) mg/dL 04/24/21 04/24/21 04/24/21 Range/Units 06:34 07:01 07:30 WBC 20.5 H (3.8-10.6) k/uL RBC 3.04 L (3.80-5.40) m/uL Hgb 10.5 L (11.4-16.0) gm/dL Hct 29.8 L (34.0-46.0) % RDW 16.2 H (11.5-15.5) % Plt Count (150-450) k/uL Neutrophils # (1.3-7.7) k/uL Neutrophils # (Manual) 19.20 H (1.3-7.7) k/uL Lymphocytes # (1.0-4.8) k/uL APTT (22.0-30.0) sec D-Dimer (<0.60) mg/L FEU Sodium (137-145) mmol/L BUN (7-17) mg/dL Creatinine (0.52-1.04) mg/dL Glucose (74-99) mg/dL POC Glucose (mg/dL) 156 H 166 H (75-99) mg/dL Calcium (8.4-10.2) mg/dL 04/24/21 04/24/21 04/24/21 Range/Units 07:30 07:30 11:02 WBC (3.8-10.6) k/uL RBC (3.80-5.40) m/uL Hgb (11.4-16.0) gm/dL Hct (34.0-46.0) % RDW (11.5-15.5) % Plt Count (150-450) k/uL Neutrophils # (1.3-7.7) k/uL Neutrophils # (Manual) (1.3-7.7) k/uL Lymphocytes # (1.0-4.8) k/uL APTT >200.0 H* (22.0-30.0) sec D-Dimer (<0.60) mg/L FEU Sodium 130 L (137-145) mmol/L BUN 43 H (7-17) mg/dL Creatinine 5.18 H (0.52-1.04) mg/dL Glucose 161 H (74-99) mg/dL POC Glucose (mg/dL) 314 H (75-99) mg/dL Calcium 7.8 L (8.4-10.2) mg/dL Microbiology - Last 24 Hours (Table) 04/22/21 18:15 Blood Culture - Preliminary Blood No Growth after 24 hours 04/22/21 18:00 Blood Culture - Preliminary Blood No Growth after 24 hours Assessment and Plan Plan: 1. Acute hypoxic respiratory failure , most likely secondary to fluid overload. Chest x-ray showing pulmonary vessel congestion and small effusion the left lung base. The patient was treated for COVID 19 based on an earlier hospitalization. This was an incidental finding. Please refer to the admission that occurred on 04/14/2021. Noted the patient underwent 2 sessions of hemodialysis during this current admission. Last hemodialysis yesterday with a total of 2 L of ultrafiltration was done. Oxygenation is still impaired and the patient continues to have crackles and the patient continues to have increased interstitial edema on follow-up chest x-ray. Currently on 15 L of oxygen by nasal cannula. Consider the possibility of covid 19 related pneumonia complicating the overall picture. 2. Newly diagnosed COVID-19 infection, patient is asymptomatic, this is a incidental finding as part of the preadmission requirement for ECF placement. Note that patient had a negative COVID-19 PCR on admission on 04/07/2021. Her vaccination status is unclear, patient thinks she is vaccinated, however she is a poor historian she was placed back on Decadron 6 mg by mouth daily. The patient is on long-term anticoagulation with Eliquis 2.5 mg twice a day. 3. chronic CHF with diastolic dysfunction 4. End-stage renal disease on hemodialysis, this was recently initiated after patient sustained acute kidney injury in February following her cholecystectomy. She has a right subclavian temporary hemodialysis catheter in place, she is being dialyzed on Thursday schedule 5. Recent cholecystectomy on 03/08/2021 at [facility] 6. Dementia 7. Chronic A. fib on Eliquis 8. Diabetes mellitus type 2 9. COPD 10. Former smoker, quit smoking 40 years ago, does carry [id number] smoking history 11.Valvular heart disease with mild aortic stenosis and regurgitation, moderate mitral regurgitation, moderate to severe tricuspid regurg and severe pulmonary hypertension with right-sided pressure of 71.4 mmHg 12. CVA 13. Hypertension Plan As mentioned, very unlikely to be a pulmonary embolism related respiratory decompensation. The patient is still having crackers in the mid and lower lung with bilaterally along with diffuse rales. The patient was placed on IV heparin by the primary carehospitalist team. Doppler of the lower extremity is negative. The d-dimer is nonelevated. Recommend proceeding with another session of dialysis today. Repeat chest x-ray postdialysis a monitor the oxygenation Continue Decadron for now 6 mg by mouth daily Monitor electrolytes Monitor renal function We'll continue to follow. Outpatient medication resume. DNR/DNI CODE STATUS.
[2021-04-24 16:16] LABS: Glucose,Whole Blood 118 mg/dL (75-99)
[2021-04-24] MEDS: HEPARIN SOD,PORK IN 0.45% NACL 25,000 UNIT in 0.45% NACL 1 250ML.BAG IV SCH (18:45)
[2021-04-24 20:25] LABS: Glucose,Whole Blood 152 mg/dL (75-99)
--- NOTE | 2021-04-25 02:16 | P.PN ---
Progress Note - Text Progress Note Date: 04/25/21 Notified by the RN regarding swelling of patient's tongue. The patient was seen at the bedside. The base of the tongue was swollen with purple and red discoloration. The patient's voice had also changed as per the RN. The patient reported that her tongue felt "strange" but denied any additional complaints. The patient's Heparin infusion was stopped.
[2021-04-25 06:20] LABS: Glucose,Whole Blood 108 mg/dL (75-99)
[2021-04-25] MEDS: INSULIN ASPART (NovoLOG) 100 UNIT/ML VIAL SQ SCH ×4 (06:20→21:19)
[2021-04-25] MEDS: SYMBICORT 160-4.5 MCG INHALER INHALATION SCH ×2 (07:12→20:23)
[2021-04-25] MEDS: ZINC SULFATE 220 MG CAP PO SCH (08:08)
[2021-04-25] MEDS: LEVOTHYROXINE 88 MCG TAB PO SCH (08:08)
[2021-04-25] MEDS: DEXAMETHASONE SOD PHOSPHATE 10 MG/ML 1 ML VIAL IVP SCH ×3 (08:08→19:46)
[2021-04-25] MEDS: ASCORBIC ACID 500 MG TAB PO SCH (08:08)
[2021-04-25] MEDS: SEVELAMER 800 MG TAB PO SCH ×3 (08:08→15:26)
[2021-04-25] MEDS: CHOLECALCIFEROL 125 MCG (5000 IU) TABLET PO SCH (08:08)
[2021-04-25] MEDS: AMIODARONE 200 MG TAB PO SCH (08:08)
[2021-04-25] MEDS: METOPROLOL TARTRATE 25 MG TAB PO SCH ×2 (08:08→15:25)
--- NOTE | 2021-04-25 08:43 | P.PN ---
Subjective Patient is seen in follow-up for acute kidney injury, currently hemodialysis dependent. Had an extra treatment of dialysis yesterday mostly for ult rafiltration. Patient developed swelling and bleeding of her tongue last night. Heparin has been stopped. Blood pressure stable. Hemoglobin 10.5 yesterday. She's currently resting in bed. Quite lethargic. Not responding to verbal cautions. Vital signs are stable. General: On nasal cannula. HEENT: Swollen tongue with red discoloration noted. LUNGS: Breath sounds decreased. HEART: Rate and Rhythm are regular. ABDOMEN: No distention. EXTREMITITES: No edema. Objective - Vital Signs Vital signs: Vital Signs Temp 97.7 F 04/25/21 07:12 Pulse 87 04/25/21 07:12 Resp 22 04/25/21 07:12 BP 137/65 04/25/21 07:12 Pulse Ox 97 04/25/21 07:12 Intake & Output 04/24/21 04/25/21 04/25/21 18:59 06:59 18:59 Intake Total 570.486 45.006 Balance 570.486 45.006 Weight 63 kg Intake: IV 10 Invasive Line 1 10 Intake, IV Titration 120.486 35.006 Amount Heparin Sod,Pork in 0.45% 120.486 35.006 NaCl 25,000 unit In 0.45 % NaCl 1 250ml.bag @ 18 UNITS/KG/HR 12.002 mls/hr IV .[id number] [facility] Rx#: [id number] Oral 450 Other: Voiding Method Diaper Diaper Incontinent Incontinent # Bowel Movements 1 1 - Labs CBC & Chem 7: 04/24/21 07:30 04/24/21 07:30 Labs: Abnormal Lab Results - Last 24 Hours (Table) 04/24/21 04/24/21 04/24/21 Range/Units 07:30 11:02 16:13 WBC 20.5 H (3.8-10.6) k/uL RBC 3.04 L (3.80-5.40) m/uL Hgb 10.5 L (11.4-16.0) gm/dL Hct 29.8 L (34.0-46.0) % RDW 16.2 H (11.5-15.5) % Neutrophils # (Manual) 19.20 H (1.3-7.7) k/uL APTT (22.0-30.0) sec POC Glucose (mg/dL) 314 H 118 H (75-99) mg/dL 04/24/21 04/24/21 04/25/21 Range/Units 16:15 20:23 00:00 WBC (3.8-10.6) k/uL RBC (3.80-5.40) m/uL Hgb (11.4-16.0) gm/dL Hct (34.0-46.0) % RDW (11.5-15.5) % Neutrophils # (Manual) (1.3-7.7) k/uL APTT 155.4 H* 75.1 H (22.0-30.0) sec POC Glucose (mg/dL) 152 H (75-99) mg/dL 04/25/21 Range/Units 06:18 WBC (3.8-10.6) k/uL RBC (3.80-5.40) m/uL Hgb (11.4-16.0) gm/dL Hct (34.0-46.0) % RDW (11.5-15.5) % Neutrophils # (Manual) (1.3-7.7) k/uL APTT (22.0-30.0) sec POC Glucose (mg/dL) 108 H (75-99) mg/dL Microbiology - Last 24 Hours (Table) 04/22/21 18:00 Blood Culture - Preliminary Blood No Growth after 48 hours 04/22/21 18:15 Blood Culture - Preliminary Blood No Growth after 48 hours Assessment and Plan Plan: Assessment: 1. Acute kidney injury, currently hemodialysis dependent due to ATN in February 2021. 2. History of chronic kidney disease stage IIIb with unknown baseline renal function. 3. Volume overload. Improved with ultrafiltration. 4. Acute hypoxic respiratory failure. 5. COVID-19 infection. 6. Hyperkalemia secondary to acute kidney injury. Improved postdialysis. 7. 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 8. Acute on chronic diastolic CHF with moderate mitral regurgitation, moderate to severe tricuspid regurgitation and severe pulmonary hypertension. 9. A. fib. Rate controlled. Plan: Hemodialysis today. Per nurse, she is refusing medications as well as hemodialysis at this time. Wean FiO2. No evidence of renal recovery at this time. Prognosis guarded.
[2021-04-25] MEDS: FAMOTIDINE 20 MG/2 ML VIAL IV SCH (11:06)
[2021-04-25 12:42] VITALS: BMI 27.1
[2021-04-25] MEDS ORDERED: ACETAMINOPHEN IV (For NPO) 1,000 MG in EMPTY BAG 1 BAG IVPB STA (12:55)
--- NOTE | 2021-04-25 13:31 | P.PN ---
Subjective Progress Note Date: 04/25/21 I was asked to evaluate this patient because of an acute on chronic hypoxic respiratory failure secondary to COVID 19 pneumonia. The patient is known to have incisional disease and the patient on hemodialysis. The patient also known to have COPD, chronic atrial fibrillation, hypertension, hyperlipidemia.. The patient is usually on 3 L of oxygen by nasal cannula. The patient is a [facility] resident. The patient was noted to be more short of breath. Note that the patient was hospitalized on 04/07/2021 for respiratory failure and at that time the patient was also treated for volume overload and possible infection the patient was given IV antibiotics and BiPAP for respiratory support. Note that initial over 19 testing on 04/07/2021 was negative. Subsequent testing a 04/12/2021, 04/15/2021 and 04/22/2021 came back all positive. Note that the patient's vaccination status is unknown. She was having issues with oxygenation and her oxygen flow was brought up to 5 L per minute nasal cannula. She undergoes dialysis 3 times a week and her dialysis on Thursday was cut short due to inadequate flow from the dialysis catheter. Based on that, the patient was brought into the hospital for further evaluation. The patient reported some chronic nonproductive cough. She denies having any other active complaints. No reported fever. No reported chills. No nausea. No vomiting. No abdominal pain. No chest pain. Chest x-ray was done in the emergency department was consistent with fluid overload. The patient was sent and was at 15.1 with a hemoglobin of 10 and a platelet count of 116. The sodium was 135 with a potassium level of 6.2 with a chloride of 11 her bicarb level XXI. BUN was 100 and a creatinine was at 9.5. The ferritin level was 1498. The LDH level was 1020 and a CRP level was at 1.8. Total protein was 5.6. LFTs were essentially within normal limits. Calcium level is at 8.2. Coagulation profile was essentially within normal limits. Underwent hemodialysis yesterday and the repeat electrolytes show a sodium level of 131, potassium level is down to 5.2 and the creatinine is down to 6.46 with a BUN of 65. Morning blood sugar is at 89. Overnight, the oxygenation also got more impaired and the patient has been brought up to 10 L of Oxymizer nasal cannula. She is on long-term anticoagulant with Eliquis 2.5 mg twice a day. She is also started on Decadron 6 mg IV every 24 hours. Outpatient medications have been ordered resume. 04/24/2021, the patient is being seen for a follow-up. The patient continues to BE short of breath and 80 disease of oxygen by nasal cannula. At time of my evaluation, the pulse ox was as low as 84%. Based on that, the patient was placed on 12 L of oxygen by nasal cannula with titrate FiO2 to maintain saturation above 90%. The patient underwent hemodialysis yesterday. A total of 2 L of ultrafiltration was done. Repeat chest x-ray showed persistent bilateral pulmonary interstitial infiltrates which could be fluid versus COVID 19 related limited cough and congestion. She is afebrile. Pulmonary embolism was suspected by the hospitalist and the patient was started on IV heparin. Those being adjusted based on underlying PTT. The patient's white cell count is at 20.4 with a hemoglobin of 10.5 and a platelet count of 168. On today's evaluation the sodium is 130 with a potassium level of 4.3 and a BUN of 43 with a creatinine of 5.18. I discussed the case with the primary care team and nephrology. The patient is going to have another session of hemodialysis today. The Doppler of the lower extremity was done and it was negative for DVT. 04/25/2021, patient is doing poorly.she is still short of breath. She remains on 15 L of oxygen high nasalplan the patient's breathing continues to be labored for now.the patient declined having dialysis yesterday. Furthermore, she had swelling of the tongue in addition to a hematoma forming in the base of the tongue that was quite swollen after she bit her tongue. No active bleeding at this point in time. IV heparin has been discontinued.the patient is being considered for hospice care. Objective - Vital Signs Vital signs: Vital Signs Temp 96.1 F L 04/25/21 11:11 Pulse 92 04/25/21 11:11 Resp 24 04/25/21 11:11 BP 95/56 04/25/21 12:50 Pulse Ox 96 04/25/21 11:11 Intake & Output 04/24/21 04/25/21 04/25/21 18:59 06:59 18:59 Intake Total 570.486 45.006 Output Total 0 Balance 570.486 45.006 0 Weight 63 kg 63 kg Intake: IV 10 Invasive Line 1 10 Intake, IV Titration 120.486 35.006 Amount Heparin Sod,Pork in 0.45% 120.486 35.006 NaCl 25,000 unit In 0.45 % NaCl 1 250ml.bag @ 18 UNITS/KG/HR 12.002 mls/hr IV .[id number] [facility] Rx#: [id number] Oral 450 Output: Urine 0 Stool 0 Other: Voiding Method Diaper Diaper Diaper Incontinent Incontinent Incontinent # Voids 0 # Bowel Movements 1 1 0 - Exam GENERAL EXAM: Alert, pleasant, 85-year-old white female on 15 L of oxygen with pulse ox of 93%, symptomatic bunions of the bed, breathing comfortably, comfortable in no apparent distress. HEAD: Normocephalic/atraumatic. EYES: Normal reaction of pupils, equal size. Conjunctiva pink, sclera white. NOSE: Clear with pink turbinates. THROAT: No erythema or exudates.the patient had a swollen tongue which is also ecchymotic. NECK: No masses, no JVD, no thyroid enlargement, no adenopathy. CHEST: No chest wall deformity. Symmetrical expansion. Right upper chest X-ray hemodialysis catheter is in place, there is a permacath in the right IJ. LUNGS: Equal air entry with no crackles, wheeze, rhonchi or dullness. A few bibasilar crackles present CVS: Regular rate and rhythm, normal S1 and S2, no gallops, no murmurs, no rubs ABDOMEN: Soft, nontender. No hepatosplenomegaly, normal bowel sounds, no guarding or rigidity. EXTREMITIES: No clubbing, no edema, no cyanosis, 2+ pulses and upper and lower extremities. MUSCULOSKELETAL: Muscle strength and tone normal. SPINE: No scoliosis or deformity SKIN: No rashes CENTRAL NERVOUS SYSTEM: Alert and oriented -3. No focal deficits, tone is norm al in all 4 extremities. PSYCHIATRIC: Alert and oriented -3. Appropriate affect. Intact judgment and insight. - Labs CBC & Chem 7: 04/24/21 07:30 04/24/21 07:30 Labs: Abnormal Lab Results - Last 24 Hours (Table) 04/24/21 04/24/21 04/24/21 Range/Units 16:13 16:15 20:23 APTT 155.4 H* (22.0-30.0) sec POC Glucose (mg/dL) 118 H 152 H (75-99) mg/dL 04/25/21 04/25/21 Range/Units 00:00 06:18 APTT 75.1 H (22.0-30.0) sec POC Glucose (mg/dL) 108 H (75-99) mg/dL Microbiology - Last 24 Hours (Table) 04/22/21 18:00 Blood Culture - Preliminary Blood No Growth after 48 hours 04/22/21 18:15 Blood Culture - Preliminary Blood No Growth after 48 hours Assessment and Plan Plan: 1. Acute hypoxic respiratory failure , most likely secondary to fluid overload. Chest x-ray showing pulmonary vessel congestion and small effusion the left lung base. The patient was treated for COVID 19 based on an earlier hospitalization. This was an incidental finding. Please refer to the admission that occurred on 04/14/2021. Noted the patient underwent 2 sessions of hemodialysis during this current admission.Nevertheless, the patient continued to be hypoxic. The patient is on 15 L O2 by nasal cannula. Oxygenation failed to improve with hemodialysis. The patient declined hemodialysis today. She is being considered for hospice care. I think the progression of hypoxic respiratory failure is probably related to COVID 19 pneumonia. 2. Newly diagnosed COVID-19 infection, patient is asymptomatic, this is a incidental finding as part of the preadmission requirement for ECF placement. Note that patient had a negative COVID-19 PCR on admission on 04/07/2021. Her vaccination status is unclear, patient thinks she is vaccinated, however she is a poor historian she was placed back on Decadron 6 mg by mouth daily. 3. chronic CHF with diastolic dysfunction 4. End-stage renal disease on hemodialysis, this was recently initiated after patient sustained acute kidney injury in February following her cholecystectomy. She has a right subclavian temporary hemodialysis catheter in place, she is be ing dialyzed on Thursday schedule 5. Recent cholecystectomy on 03/08/2021 at [facility] 6. Dementia 7. Chronic A. fib on Eliquis 8. Diabetes mellitus type 2 9. COPD 10. Former smoker, quit smoking 40 years ago, does carry [id number] smoking history 11.Valvular heart disease with mild aortic stenosis and regurgitation, moderate mitral regurgitation, moderate to severe tricuspid regurg and severe pulmonary hypertension with right-sided pressure of 71.4 mmHg 12. CVA 13. Hypertension 14 hematoma of the tongue Plan IV heparin has been discontinued Recommend component continuing the supportive care Hemodialysis will be done as the patient is willing to undertake the treatment. If not, and if the patient refuses ongoing hemodialysis, she may consider hospice. I think there are some ideas floating around between the patient and her family to proceed with hospice care. Final decision to be done today. Her recovery has been slow. Her hypoxic respiratory failure is most likely secondary to COVID 19 related pneumonia with interval worsening of bilateral pulmonary infiltrates and worsening and hypoxic respiratory failure. Noted the patient has a DNR/DNI CODE STATUS.
--- NOTE | 2021-04-25 14:56 | P.PN ---
Subjective Progress Note Date: 04/25/21 (delayed charting seen nik son 0930, daughter 1130, and 1430) Principal diagnosis: shortness of breath Patient is an 85-year-old female with end-stage renal disease on hemodialysis Thursday//Thursday, hypertension, dyslipidemia, diabetes mellitus type 2, COPD with chronic respiratory failure on 3 L nasal cannula and multiple other comorbid conditions who presented to the hospital secondary to shortness of breath. She was recently here from 04/07/21-04/18/21 and was diagnised with COVID during that hospital stay. She should have received 10 days f decadron at this point. She had been found to be covert positive approximately 5 days before admission and was requiring increased oxygenation. She was unable to fully undergo her last hemodialysis treatment secondary to inadequate flow from the catheter. In the ER she underwent an extensive evaluation. Initial chest x- ray demonstrated fluid overload, EKG revealed atrial flutter with variable block at 90, and laboratory analysis was remarkable for a white blood cell count of 18.2, hemoglobin 10.7 (at baseline), platelet count 148 at her baseline, potassium of 6.2, BUN 100, and creatinine 9.56, she was again positive for COVID-19 via nucleic acid testing. Patient underwent emergent hemodialysis. Her O2 sats continued to worsen. A d-dimer was obtained. Elevated at 2.2. Lower extremity venous Dopplers were negative. She was started on a heparin drip with concerns for pulmonary embolism however we delayed initiating a CTA of the chest as they're hoping for renal recovery. She continued to require more oxygen. Case is discussed with pulmonary and nephrology and is felt she may have continued fluid overload. She will undergo another round of dialysis. She bite her tongue on 04/24 and PTT >200 and patient dveloped significant tongue hematoma and neck hematoma. Her heparin drip had already been on hold was discontinued. Patient seen and examined at bedside. She does not want blood draws or continued HD she is tired adn wants to be done. She c/o THOMAS and tongue pain. More short of breath than yesterday. Having difficulty swallowing secondary to her enlarged tongue. General: non toxic, no distress, appears at stated age Derm: ecchymosis anterior neck hematoma, still able to move tongue Head:normocephalic, symmetric Eyes: EOMI, no lid lag, anicteric sclera Mouth: no lip lesion, mucus membranes moist, togue ecchymotic and enlarged unable to control secretions, no difficulty phonating Cardiovascular: S1S2 reg, no murmur, positive posterior tibial pulse bilateral, Lungs: crackels bilateral, no accessory muscle use Abdominal: soft, nontender to palpation, no guarding, no appreciable organomegaly Ext: no gross muscle atrophy, trace edema, no contractures Neuro: CN II-XI grossly intact, no focal neuro deficits Psych: Alert, oriented, appropriate affect Acute Exacerbation of Diastolic CHF with EF 50-55%, Severe TR and Severe Pulm HTN - Fluid optimization with HD, completed X 3 -Lopressor -Not chronically on any inhibitor Hematoma tongue and anterior neck -Heparin drip on hold -Close monitoring -If patient wants to continue with care will consult oromaxillofacial surgery. DIALLO requiring HD with fluid overload, hyperkalemia Mineral Bone Disease -Status post hd 04/22, 04/23, AND 04/24 -Nephrology recommendations -Continue with Renvela Elevated d-dimer - heparin gtt disconitnued - venous dopplers negative - if no improvement in oxygenation with HD then will need CTA chest Recent COVID-19 Acute on chronic hypoxic respiratory failure COPD SIRS, undetermined etiology -Continue with Decadron. It appears that the patient has completed 10 days of dexamethasone. -Continue vitamin C, vitamin D, and zinc -Pulmonary recommendations -When necessary bronchodilators and scheduled Symbicort -Pro calcitonin is markedly elevated at 1 however this is likely secondary to her end-stage renal disease which can raise pro-calcitonin levels. Blood cultures negative to date. -Continue to follow chest x-ray -Patient had been getting cefdinir on outpatient basis which is currently held. As she should have completed ABX for CAP from last admission Diabetes mellitus type 2 insulin requiring -Continue with sliding scale insulin -Appears to only be on sliding scale insulin at baseline Paroxysmal atrial fibrillation/flutter -Continue with Eliquis -Continue with amiodarone, metoprolol Stage 2 Pressure Ulcer, POA - frequent turns - off loading - barrier cream Chronic: GERD HLD Hypothyroidism HX CVA HX of Lap Krystal 03/12 with IDALLO and HD -I met with the daughter at 11:30 and she discussed the patient, they met with hospice. I again went up to 14. Discussed in detail with the daughter and the patient. Patient will have her blood drawn checked tomorrow and at that time we'll consider dialysis and make a final determination as to whether she wants to be hospice care or continue on her current course of treatment. DVT prophylaxis: Jimmie Discussed with: Patient, nursing, daughter, Dr. Larson, Dr. Norman Anticipated discharge: 5-7days Anticipated discharge place: return to [facility] A total of 35 minutes was spent on the care of this complex patient more than 50% of the time was spent in counseling and Objective - Vital Signs Vital signs: Vital Signs Temp 96.1 F L 04/25/21 11:11 Pulse 92 04/25/21 11:11 Resp 24 04/25/21 11:11 BP 95/56 04/25/21 12:50 Pulse Ox 96 04/25/21 11:11 Intake & Output 04/24/21 04/25/21 04/25/21 18:59 06:59 18:59 Intake Total 570.486 45.006 Output Total 0 Balance 570.486 45.006 0 Weight 63 kg 63 kg Intake: IV 10 Invasive Line 1 10 Intake, IV Titration 120.486 35.006 Amount Heparin Sod,Pork in 0.45% 120.486 35.006 NaCl 25,000 unit In 0.45 % NaCl 1 250ml.bag @ 18 UNITS/KG/HR 12.002 mls/hr IV .[id number] [facility] Rx#: [id number] Oral 450 Output: Urine 0 Stool 0 Other: Voiding Method Diaper Diaper Diaper Incontinent Incontinent Incontinent # Voids 0 # Bowel Movements 1 1 0 - Labs CBC & Chem 7: 04/24/21 07:30 04/24/21 07:30 Labs: Abnormal Lab Results - Last 24 Hours (Table) 04/24/21 04/24/21 04/24/21 Range/Units 16:13 16:15 20:23 APTT 155.4 H* (22.0-30.0) sec POC Glucose (mg/dL) 118 H 152 H (75-99) mg/dL 04/25/21 04/25/21 Range/Units 00:00 06:18 APTT 75.1 H (22.0-30.0) sec POC Glucose (mg/dL) 108 H (75-99) mg/dL Microbiology - Last 24 Hours (Table) 04/22/21 18:00 Blood Culture - Preliminary Blood No Growth after 48 hours 04/22/21 18:15 Blood Culture - Preliminary Blood No Growth after 48 hours
[2021-04-25 16:14] LABS: Glucose,Whole Blood 149 mg/dL (75-99)
[2021-04-25] MEDS: ATORVASTATIN 10 MG TAB PO SCH (19:49)
[2021-04-25 20:00] LABS: Glucose,Whole Blood 163 mg/dL (75-99)
[2021-04-26 06:06] LABS: Glucose,Whole Blood 242 mg/dL (75-99)
[2021-04-26] MEDS: LEVOTHYROXINE 88 MCG TAB PO SCH (06:14)
[2021-04-26] MEDS: INSULIN ASPART (NovoLOG) 100 UNIT/ML VIAL SQ SCH ×4 (06:14→21:40)
[2021-04-26] MEDS: AMIODARONE 200 MG TAB PO SCH (06:14)
[2021-04-26 06:35] LABS: Anisocytosis Slight; HGB 9.6 gm/dL (11.4-16.0); Hypochromasia Slight; MCH 30.6 pg (25.0-35.0); MCV 95.8 fL (80.0-100.0); Mean Platelet Volume 8.9; Platelet Count 114 k/uL (150-450); RBC 3.13 m/uL (3.80-5.40); RDW 16.3 % (11.5-15.5); WBC 11.8 k/uL (3.8-10.6)
[2021-04-26 06:55] LABS: Potassium 4.3 mmol/L (3.5-5.1)
[2021-04-26] MEDS: SYMBICORT 160-4.5 MCG INHALER INHALATION SCH ×2 (07:30→20:07)
--- NOTE | 2021-04-26 08:59 | P.PN ---
Subjective Patient is seen in follow-up for acute kidney injury, currently hemodialysis dependent. Refused dialysis yesterday but is agreeable today. Patient wants to continue with hemodialysis at this time. She is currently on 15 L high flow cannula. Vital signs are stable. General: On nasal cannula. HEENT: Nasal cannula noted. LUNGS: Breath sounds decreased. HEART: Rate and Rhythm are regular. ABDOMEN: No distention. EXTREMITITES: No edema. Objective - Vital Signs Vital signs: Vital Signs Temp 97.8 F 04/26/21 07:41 Pulse 92 04/26/21 07:41 Resp 19 04/26/21 07:41 BP 95/62 04/26/21 07:41 Pulse Ox 90 L 04/26/21 07:41 Intake & Output 04/25/21 04/26/21 04/26/21 18:59 06:59 18:59 Intake Total 0 Output Total 0 0 Balance 0 0 Weight 63 kg Intake: Oral 0 Output: Urine 0 Stool 0 0 Other: Voiding Method Diaper Diaper Incontinent Incontinent # Voids 0 # Bowel Movements 0 - Labs CBC & Chem 7: 04/26/21 06:16 04/26/21 06:16 Labs: Abnormal Lab Results - Last 24 Hours (Table) 04/25/21 04/25/21 04/26/21 Range/Units 16:13 19:59 06:02 WBC (3.8-10.6) k/uL RBC (3.80-5.40) m/uL Hgb (11.4-16.0) gm/dL Hct (34.0-46.0) % RDW (11.5-15.5) % Plt Count (150-450) k/uL Sodium (137-145) mmol/L BUN (7-17) mg/dL Creatinine (0.52-1.04) mg/dL Glucose (74-99) mg/dL POC Glucose (mg/dL) 149 H 163 H 242 H (75-99) mg/dL Calcium (8.4-10.2) mg/dL 04/26/21 04/26/21 Range/Units 06:16 06:16 WBC 11.8 H (3.8-10.6) k/uL RBC 3.13 L (3.80-5.40) m/uL Hgb 9.6 L (11.4-16.0) gm/dL Hct 30.0 L (34.0-46.0) % RDW 16.3 H (11.5-15.5) % Plt Count 114 L (150-450) k/uL Sodium 136 L (137-145) mmol/L BUN 48 H (7-17) mg/dL Creatinine 6.35 H (0.52-1.04) mg/dL Glucose 238 H (74-99) mg/dL POC Glucose (mg/dL) (75-99) mg/dL Calcium 8.0 L (8.4-10.2) mg/dL Microbiology - Last 24 Hours (Table) 04/22/21 18:15 Blood Culture - Preliminary Blood No Growth after 72 hours 04/22/21 18:00 Blood Culture - Preliminary Blood No Growth after 72 hours Assessment and Plan Plan: Assessment: 1. Acute kidney injury, currently hemodialysis dependent due to ATN in February 2021. 2. History of chronic kidney disease stage IIIb with unknown baseline renal function. 3. Volume overload. Improved with ultrafiltration. 4. Acute hypoxic respiratory failure. 5. COVID-19 infection. 6. Hyperkalemia secondary to acute kidney injury. Improved postdialysis. 7. 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 8. Acute on chronic diastolic CHF with moderate mitral regurgitation, moderate to severe tricuspid regurgitation and severe pulmonary hypertension. 9. A. fib. Rate controlled. 10. Anemia of chronic kidney disease. Plan: Hemodialysis today - she refused treatment yesterday. Plan for another treatment tomorrow per her outpatient schedule. Wean FiO2. Check iron studies. No evidence of renal recovery at this time. Prognosis guarded.
[2021-04-26] MEDS: METOPROLOL TARTRATE 25 MG TAB PO SCH ×2 (10:35→17:14)
[2021-04-26] MEDS: CHOLECALCIFEROL 125 MCG (5000 IU) TABLET PO SCH (10:35)
[2021-04-26] MEDS: ASCORBIC ACID 500 MG TAB PO SCH (10:36)
[2021-04-26] MEDS: FAMOTIDINE 20 MG/2 ML VIAL IV SCH (10:36)
[2021-04-26] MEDS: SEVELAMER 800 MG TAB PO SCH ×3 (10:36→17:14)
[2021-04-26] MEDS: DEXAMETHASONE SOD PHOSPHATE 10 MG/ML 1 ML VIAL IVP SCH ×2 (10:36→21:39)
[2021-04-26] MEDS: ZINC SULFATE 220 MG CAP PO SCH (10:51)
[2021-04-26 11:51] LABS: Glucose,Whole Blood 228 mg/dL (75-99)
--- NOTE | 2021-04-26 13:31 | P.PN ---
Subjective Progress Note Date: 04/26/21 (delayed charting seen at 1110) Principal diagnosis: shortness of breath Patient is an 85-year-old female with end-stage renal disease on hemodialysis Thursday//Thursday, hypertension, dyslipidemia, diabetes mellitus type 2, COPD with chronic respiratory failure on 3 L nasal cannula and multiple other comorbid conditions who presented to the hospital secondary to shortness of breath. She was recently here from 04/07/21-04/18/21 and was diagnised with COVID during that hospital stay. She should have received 10 days f decadron at this point. She had been found to be covert positive approximately 5 days before admission and was requiring increased oxygenation. She was unable to fully undergo her last hemodialysis treatment secondary to inadequate flow from the catheter. In the ER she underwent an extensive evaluation. Initial chest x- ray demonstrated fluid overload, EKG revealed atrial flutter with variable block at 90, and laboratory analysis was remarkable for a white blood cell count of 18.2, hemoglobin 10.7 (at baseline), platelet count 148 at her baseline, potassium of 6.2, BUN 100, and creatinine 9.56, she was again positive for COVID-19 via nucleic acid testing. Patient underwent emergent hemodialysis. Her O2 sats continued to worsen. A d-dimer was obtained. Elevated at 2.2. Lower extremity venous Dopplers were negative. She was started on a heparin drip with concerns for pulmonary embolism however we delayed initiating a CTA of the chest as they're hoping for renal recovery. She continued to require more oxygen. Case is discussed with pulmonary and nephrology and is felt she may have continued fluid overload. She will undergo another round of dialysis. She bite her tongue on 04/24 and PTT >200 and patient developed significant tongue and neck hematoma. Her heparin drip had already been on hold was formally discontin ued. She had considered hospice but has now reconsidered and will now do HD again. Patient seen and examined at bedside. She is agreeable to HD X1 today, Tongue is better has been swallowing well today. Still unsure but wants to try HD until she feels better. + SOB unchanged from yesterday. General: non toxic, no distress, appears at stated age Derm: ecchymosis anterior neck hematoma, Head:normocephalic, symmetric Eyes: EOMI, no lid lag, anicteric sclera Mouth: no lip lesion, mucus membranes moist, tongue ecchymotic now able to control secretions. Cardiovascular: S1S2 reg, no murmur, positive posterior tibial pulse bilateral, Lungs: Ronchi bilateral, no accessory muscle use Abdominal: soft, nontender to palpation, no guarding, no appreciable organomegaly Ext: no gross muscle atrophy, trace edema, no contractures Neuro: CN II-XI grossly intact, no focal neuro deficits Psych: Alert, oriented, appropriate affect Acute Exacerbation of Diastolic CHF with EF 50-55%, Severe TR and Severe Pulm HTN -Fluid optimization with HD, completed X 3, repeat HD today -Lopressor -Not chronically on any inhibitor Hematoma tongue and anterior neck -Heparin drip on hold -Close monitoring -Consult ENT DIALLO requiring HD with fluid overload, hyperkalemia Mineral Bone Disease -Status post hd 04/22, 04/23, AND 04/24, repeat today -Nephrology recommendations -Continue with Renvela Elevated d-dimer - heparin gtt discontinued - venous dopplers negative - pulmonayr feels symptoms more likely related to recent COVID the Pulmonary embolism at this time. Recent COVID-19 Acute on chronic hypoxic respiratory failure COPD SIRS, undetermined etiology -Continue with Decadron. It appears that the patient has completed 10 days of dexamethasone prior to admission. -Continue vitamin C, vitamin D, and zinc -Pulmonary recommendations -When necessary bronchodilators and scheduled Symbicort -Pro calcitonin is markedly elevated at 1 however this is likely secondary to her end-stage renal disease which can raise pro-calcitonin levels. Blood cultures negative to date. -Continue to follow chest x-ray -Patient had been getting cefdinir on outpatient basis which is currently held. As she should have completed ABX for CAP from last admission Diabetes mellitus type 2 insulin requiring -Continue with sliding scale insulin -Appears to only be on sliding scale insulin at baseline Paroxysmal atrial fibrillation/flutter -Continue with Eliquis -Continue with amiodarone, metoprolol Stage 2 Pressure Ulcer, POA - frequent turns - off loading - barrier cream Chronic: GERD HLD Hypothyroidism HX CVA HX of Lap Krystal 03/12 with DIALLO and HD D/W hospice they will re-eval patient on thursday. DVT prophylaxis: scds Discussed with: Patient, nursing, Anticipated discharge:3-[address]: return to [facility] A total of 35 minutes was spent on the care of this complex patient more than 50% of the time was spent in counseling and Objective - Vital Signs Vital signs: Vital Signs Temp 97.8 F 04/26/21 07:41 Pulse 92 04/26/21 07:41 Resp 19 04/26/21 07:41 BP 95/62 04/26/21 07:41 Pulse Ox 90 L 04/26/21 07:41 Intake & Output 04/25/21 04/26/21 04/26/21 18:59 06:59 18:59 Intake Total 0 118 Output Total 0 0 Balance 0 0 118 Weight 63 kg Intake: Oral 0 118 Output: Urine 0 Stool 0 0 Other: Voiding Method Diaper Diaper Diaper Incontinent Incontinent Incontinent # Voids 0 # Bowel Movements 0 2 - Labs CBC & Chem 7: 04/26/21 06:16 04/26/21 06:16 Labs: Abnormal Lab Results - Last 24 Hours (Table) 04/25/21 04/25/21 04/26/21 Range/Units 16:13 19:59 06:02 WBC (3.8-10.6) k/uL RBC (3.80-5.40) m/uL Hgb (11.4-16.0) gm/dL Hct (34.0-46.0) % RDW (11.5-15.5) % Plt Count (150-450) k/uL Sodium (137-145) mmol/L BUN (7-17) mg/dL Creatinine (0.52-1.04) mg/dL Glucose (74-99) mg/dL POC Glucose (mg/dL) 149 H 163 H 242 H (75-99) mg/dL Calcium (8.4-10.2) mg/dL 04/26/21 04/26/21 04/26/21 Range/Units 06:16 06:16 11:49 WBC 11.8 H (3.8-10.6) k/uL RBC 3.13 L (3.80-5.40) m/uL Hgb 9.6 L (11.4-16.0) gm/dL Hct 30.0 L (34.0-46.0) % RDW 16.3 H (11.5-15.5) % Plt Count 114 L (150-450) k/uL Sodium 136 L (137-145) mmol/L BUN 48 H (7-17) mg/dL Creatinine 6.35 H (0.52-1.04) mg/dL Glucose 238 H (74-99) mg/dL POC Glucose (mg/dL) 228 H (75-99) mg/dL Calcium 8.0 L (8.4-10.2) mg/dL Microbiology - Last 24 Hours (Table) 04/22/21 18:15 Blood Culture - Preliminary Blood No Growth after 72 hours 04/22/21 18:00 Blood Culture - Preliminary Blood No Growth after 72 hours
--- NOTE | 2021-04-26 13:31 | P.PN ---
Subjective Progress Note Date: 04/26/21 I was asked to evaluate this patient because of an acute on chronic hypoxic respiratory failure secondary to COVID 19 pneumonia. The patient is known to have incisional disease and the patient on hemodialysis. The patient also known to have COPD, chronic atrial fibrillation, hypertension, hyperlipidemia.. The patient is usually on 3 L of oxygen by nasal cannula. The patient is a [facility] resident. The patient was noted to be more short of breath. Note that the patient was hospitalized on 04/07/2021 for respiratory failure and at that time the patient was also treated for volume overload and possible infection the patient was given IV antibiotics and BiPAP for respiratory support. Note that initial over 19 testing on 04/07/2021 was negative. Subsequent testing a 04/12/2021, 04/15/2021 and 04/22/2021 came back all positive. Note that the patient's vaccination status is unknown. She was having issues with oxygenation and her oxygen flow was brought up to 5 L per minute nasal cannula. She undergoes dialysis 3 times a week and her dialysis on Thursday was cut short due to inadequate flow from the dialysis catheter. Based on that, the patient was brought into the hospital for further evaluation. The patient reported some chronic nonproductive cough. She denies having any other active complaints. No reported fever. No reported chills. No nausea. No vomiting. No abdominal pain. No chest pain. Chest x-ray was done in the emergency department was consistent with fluid overload. The patient was sent and was at 15.1 with a hemoglobin of 10 and a platelet count of 116. The sodium was 135 with a potassium level of 6.2 with a chloride of 11 her bicarb level XXI. BUN was 100 and a creatinine was at 9.5. The ferritin level was 1498. The LDH level was 1020 and a CRP level was at 1.8. Total protein was 5.6. LFTs were essentially within normal limits. Calcium level is at 8.2. Coagulation profile was essentially within normal limits. Underwent hemodialysis yesterday and the repeat electrolytes show a sodium level of 131, potassium level is down to 5.2 and the creatinine is down to 6.46 with a BUN of 65. Morning blood sugar is at 89. Overnight, the oxygenation also got more impaired and the patient has been brought up to 10 L of Oxymizer nasal cannula. She is on long-term anticoagulant with Eliquis 2.5 mg twice a day. She is also started on Decadron 6 mg IV every 24 hours. Outpatient medications have been ordered resume. 04/24/2021, the patient is being seen for a follow-up. The patient continues to BE short of breath and 80 disease of oxygen by nasal cannula. At time of my evaluation, the pulse ox was as low as 84%. Based on that, the patient was placed on 12 L of oxygen by nasal cannula with titrate FiO2 to maintain saturation above 90%. The patient underwent hemodialysis yesterday. A total of 2 L of ultrafiltration was done. Repeat chest x-ray showed persistent bilateral pulmonary interstitial infiltrates which could be fluid versus COVID 19 related limited cough and congestion. She is afebrile. Pulmonary embolism was suspected by the hospitalist and the patient was started on IV heparin. Those being adjusted based on underlying PTT. The patient's white cell count is at 20.4 with a hemoglobin of 10.5 and a platelet count of 168. On today's evaluation the sodium is 130 with a potassium level of 4.3 and a BUN of 43 with a creatinine of 5.18. I discussed the case with the primary care team and nephrology. The patient is going to have another session of hemodialysis today. The Doppler of the lower extremity was done and it was negative for DVT. 04/25/2021, patient is doing poorly.she is still short of breath. She remains on 15 L of oxygen high nasalplan the patient's breathing continues to be labored for now.the patient declined having dialysis yesterday. Furthermore, she had swelling of the tongue in addition to a hematoma forming in the base of the tongue that was quite swollen after she bit her tongue. No active bleeding at this point in time. IV heparin has been discontinued.the patient is being considered for hospice care. To 40,022, patient is being seen for a follow-up. The patient seems to have agreed to undergo hemodialysis today. The patient remains on 15 L about 2 by nasal cannula. Pulse ox 90%. Her overall respiratory status is unchanged compared to yesterday. Her breathing is labored. White cell count 11.8 with hemoglobin of 0.6, BUN is a 48 with a creatinine of 6.35. Blood sugars at 238. Blood cultures of been negative. The patient had signs of volume overload and the patient improved initially with hemodialysis ultrafiltration. Nevertheless, oxidation remains unchanged and the patient continues to be hypoxic. As such, we'll believe that her hypoxic respiratory failure is essentially due to progression of Covid 19 related pneumonia. Pneumonia. No interval drop in hemoglobin. The patient remains on Decadron 6 mg IV every 12 hours. The patient is also on senior care anticaogulation on Eliquis and this was stopped due to tongue hematoma Objective - Vital Signs Vital signs: Vital Signs Temp 97.8 F 04/26/21 07:41 Pulse 92 04/26/21 07:41 Resp 19 04/26/21 07:41 BP 95/62 04/26/21 07:41 Pulse Ox 90 L 04/26/21 07:41 Intake & Output 04/25/21 04/26/21 04/26/21 18:59 06:59 18:59 Intake Total 0 358 Output Total 0 0 Balance 0 0 358 Weight 63 kg Intake: Oral 0 358 Output: Urine 0 Stool 0 0 Other: Voiding Method Diaper Diaper Diaper Incontinent Incontinent Incontinent # Voids 0 # Bowel Movements 0 2 - Exam GENERAL EXAM: Alert, pleasant, 85-year-old white female on 15 L of oxygen with pulse ox of 93%, symptomatic bunions of the bed, breathing comfortably, comfortable in no apparent distress. HEAD: Normocephalic/atraumatic. EYES: Normal reaction of pupils, equal size. Conjunctiva pink, sclera white. NOSE: Clear with pink turbinates. THROAT: No erythema or exudates.the patient had a swollen tongue which is also ecchymotic. NECK: No masses, no JVD, no thyroid enlargement, no adenopathy. CHEST: No chest wall deformity. Symmetrical expansion. Right upper chest X-ray hemodialysis catheter is in place, there is a permacath in the right IJ. LUNGS: Equal air entry with no crackles, wheeze, rhonchi or dullness. A few bibasilar crackles present CVS: Regular rate and rhythm, normal S1 and S2, no gallops, no murmurs, no rubs ABDOMEN: Soft, nontender. No hepatosplenomegaly, normal bowel sounds, no guarding or rigidity. EXTREMITIES: No clubbing, no edema, no cyanosis, 2+ pulses and upper and lower extremities. MUSCULOSKELETAL: Muscle strength and tone normal. SPINE: No scoliosis or deformity SKIN: No rashes CENTRAL NERVOUS SYSTEM: Alert and oriented -3. No focal deficits, tone is normal in all 4 extremities. PSYCHIATRIC: Alert and oriented -3. Appropriate affect. Intact judgment and insight. - Labs CBC & Chem 7: 04/26/21 06:16 04/26/21 06:16 Labs: Abnormal Lab Results - Last 24 Hours (Table) 04/25/21 04/25/21 04/26/21 Range/Units 16:13 19:59 06:02 WBC (3.8-10.6) k/uL RBC (3.80-5.40) m/uL Hgb (11.4-16.0) gm/dL Hct (34.0-46.0) % RDW (11.5-15.5) % Plt Count (150-450) k/uL Sodium (137-145) mmol/L BUN (7-17) mg/dL Creatinine (0.52-1.04) mg/dL Glucose (74-99) mg/dL POC Glucose (mg/dL) 149 H 163 H 242 H (75-99) mg/dL Calcium (8.4-10.2) mg/dL 04/26/21 04/26/21 04/26/21 Range/Units 06:16 06:16 11:49 WBC 11.8 H (3.8-10.6) k/uL RBC 3.13 L (3.80-5.40) m/uL Hgb 9.6 L (11.4-16.0) gm/dL Hct 30.0 L (34.0-46.0) % RDW 16.3 H (11.5-15.5) % Plt Count 114 L (150-450) k/uL Sodium 136 L (137-145) mmol/L BUN 48 H (7-17) mg/dL Creatinine 6.35 H (0.52-1.04) mg/dL Glucose 238 H (74-99) mg/dL POC Glucose (mg/dL) 228 H (75-99) mg/dL Calcium 8.0 L (8.4-10.2) mg/dL Microbiology - Last 24 Hours (Table) 04/22/21 18:15 Blood Culture - Preliminary Blood No Growth after 72 hours 04/22/21 18:00 Blood Culture - Preliminary Blood No Growth after 72 hours Assessment and Plan Plan: 1. Acute hypoxic respiratory failure , most likely secondary to fluid overload. Chest x-ray showing pulmonary vessel congestion and small effusion the left lung base. The patient was treated for COVID 19 based on an earlier hospitalization. This was an incidental finding. Please refer to the admission that occurred on 04/14/2021. Noted the patient underwent 2 sessions of hemodialysis during this current admission.Nevertheless, the patient continued to be hypoxic. The patient is on 15 L O2 by nasal cannula. Oxygenation failed to improve with hemodialysis. The patient agreed to HD today and the patient is still on 15 liter 02 2. Newly diagnosed COVID-19 infection, patient is asymptomatic, this is a incid ental finding as part of the preadmission requirement for ECF placement. Note that patient had a negative COVID-19 PCR on admission on 04/07/2021. Her vaccination status is unclear, patient thinks she is vaccinated, however she is a poor historian she was placed back on Decadron 6 mg by mouth daily. 3. chronic CHF with diastolic dysfunction 4. End-stage renal disease on hemodialysis, this was recently initiated after patient sustained acute kidney injury in February following her cholecystectomy. She has a right subclavian temporary hemodialysis catheter in place, she is being dialyzed on Thursday schedule 5. Recent cholecystectomy on 03/08/2021 at [facility] 6. Dementia 7. Chronic A. fib on Eliquis 8. Diabetes mellitus type 2 9. COPD 10. Former smoker, quit smoking 40 years ago, does carry 37-dyrp-yaet smoking history 11.Valvular heart disease with mild aortic stenosis and regurgitation, moderate mitral regurgitation, moderate to severe tricuspid regurg and severe pulmonary hypertension with right-sided pressure of 71.4 mmHg 12. CVA 13. Hypertension 14 hematoma of the tongue, currently off Eliquis Plan Continue HD Hemodialysis to be done today. Repeat chest x-ray Consider hospice care. Her hypoxic respiratory failure is most likely secondary to COVID 19 related pneumonia with interval worsening of bilateral pulmonary infiltrates and worsening and hypoxic respiratory failure. patient has a DNR/DNI CODE STATUS.
[2021-04-26 16:04] LABS: % Iron Saturation 15.53 (12.00-45.00)
[2021-04-26 16:45] LABS: Glucose,Whole Blood 174 mg/dL (75-99)
[2021-04-26] MEDS: ALBUTEROL HFA INHALER INHALATION PRN (16:45)
[2021-04-26 21:03] LABS: Glucose,Whole Blood 266 mg/dL (75-99)
[2021-04-26] MEDS: ATORVASTATIN 10 MG TAB PO SCH (21:40)
[2021-04-27 06:05] LABS: Glucose,Whole Blood 223 mg/dL (75-99)
[2021-04-27] MEDS: LEVOTHYROXINE 88 MCG TAB PO SCH (06:39)
[2021-04-27] MEDS: AMIODARONE 200 MG TAB PO SCH (06:39)
[2021-04-27] MEDS: INSULIN ASPART (NovoLOG) 100 UNIT/ML VIAL SQ SCH ×4 (06:39→22:01)
--- NOTE | 2021-04-27 07:02 | XR ---
EXAMINATION TYPE: XR chest 1V DATE OF EXAM: 04/27/2021 CLINICAL HISTORY: Cough and covid progress study. TECHNIQUE: Single AP portable upright view of the chest is obtained. COMPARISON: Chest x-ray from 3 days earlier FINDINGS: Stable large bore right internal jugular dialysis catheter. Stable mild cardiomegaly with atherosclerotic thoracic aorta. Osseous structures are demineralized wi th old malunion fracture right proximal humerus. Chronic parenchymal changes with lateral left basila r opacity. There are background peripheral reticular and reticulonodular multifocal increased opacity again seen. IMPRESSION: Cardiomegaly with bilateral multifocal reticular and reticulonodular increased opacities could reflect chronic parenchymal scarring with more focal left basilar small effusion and consolida tion and/or atelectasis are redemonstrated. No significant change from most recent x-ray.
[2021-04-27] MEDS: TIOTROPIUM 2.5 MCG INHALER INHALATION PRN (07:58)
[2021-04-27] MEDS: ALBUTEROL HFA INHALER INHALATION PRN ×3 (07:58→16:22)
[2021-04-27] MEDS: SYMBICORT 160-4.5 MCG INHALER INHALATION SCH ×2 (07:58→21:09)
--- NOTE | 2021-04-27 08:13 | P.PN ---
Subjective Patient is seen in follow-up for acute kidney injury, currently hemodialysis dependent. Tolerated 2.5 L ultrafiltration yesterday. Patient wants to continue with hemodialysis at this time. She is currently on 12 L high flow cannula. Vital signs are stable. HEENT: Nasal cannula noted. LUNGS: Breath sounds decreased. HEART: Rate and Rhythm are regular. ABDOMEN: No distention. EXTREMITITES: No edema. Objective - Vital Signs Vital signs: Vital Signs Temp 97.9 F 04/27/21 00:00 Pulse 82 04/27/21 03:34 Resp 18 04/27/21 05:07 BP 91/54 04/27/21 03:34 Pulse Ox 96 04/27/21 05:07 Intake & Output 04/26/21 04/27/21 04/27/21 18:59 06:59 18:59 Intake Total 776 Output Total 2500 Balance -1724 Weight 66.5 kg Intake: Oral 476 Hemodialysis 300 Output: Hemodialysis 2500 Other: Voiding Method Diaper Diaper Incontinent Incontinent # Voids 0 # Bowel Movements 0 0 - Labs CBC & Chem 7: 04/26/21 06:16 04/26/21 06:16 Labs: Abnormal Lab Results - Last 24 Hours (Table) 04/26/21 04/26/21 04/26/21 Range/Units 06:16 11:49 16:42 POC Glucose (mg/dL) 228 H 174 H (75-99) mg/dL Iron 31 L (50-170) ug/dL TIBC 200 L (228-460) ug/dL Transferrin 143.0 L (204.0-354.0) mg/dL Ferritin 1899.0 H (10.0-291.0) ng/mL 04/26/21 04/27/21 Range/Units 20:41 06:01 POC Glucose (mg/dL) 266 H 223 H (75-99) mg/dL Iron (50-170) ug/dL TIBC (228-460) ug/dL Transferrin (204.0-354.0) mg/dL Ferritin (10.0-291.0) ng/mL Microbiology - Last 24 Hours (Table) 04/22/21 18:15 Blood Culture - Preliminary Blood No Growth after 96 hours 04/22/21 18:00 Blood Culture - Preliminary Blood No Growth after 96 hours Assessment and Plan Plan: Assessment: 1. Acute kidney injury, currently hemodialysis dependent due to ATN in February 2021. 2. History of chronic kidney disease stage IIIb with unknown baseline renal function. 3. Volume overload. Improved with ultrafiltration. 4. Acute hypoxic respiratory failure. 5. COVID-19 infection. 6. Hyperkalemia secondary to acute kidney injury. Improved postdialysis. 7. 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 8. Acute on chronic diastolic CHF with moderate mitral regurgitation, moderate to severe tricuspid regurgitation and severe pulmonary hypertension. 9. A. fib. Rate controlled. 10. Anemia of chronic kidney disease. High ferritin noted. Plan: Hemodialysis today. Add Aranesp. No evidence of renal recovery at this time. Check phosphorus level.
[2021-04-27] MEDS: ASCORBIC ACID 500 MG TAB PO SCH (08:27)
[2021-04-27] MEDS: CHOLECALCIFEROL 125 MCG (5000 IU) TABLET PO SCH (08:27)
[2021-04-27] MEDS: SEVELAMER 800 MG TAB PO SCH ×3 (08:27→17:37)
[2021-04-27] MEDS: FAMOTIDINE 20 MG/2 ML VIAL IV SCH (08:27)
[2021-04-27] MEDS: METOPROLOL TARTRATE 25 MG TAB PO SCH ×2 (08:28→17:37)
[2021-04-27] MEDS ORDERED: DARBEPOETIN ALFA 40 MCG/0.4 ML SYRINGE SQ SCH (08:30)
[2021-04-27 08:31] LABS: Anisocytosis Slight; HCT 32.1 % (34.0-46.0); HGB 9.8 gm/dL (11.4-16.0); Hypochromasia Marked; MCH 30.1 pg (25.0-35.0); MCHC 30.6 g/dL (31.0-37.0); MCV 98.5 fL (80.0-100.0); Macrocytosis Slight; Platelet Count 104 k/uL (150-450); RBC 3.26 m/uL (3.80-5.40); RDW 16.9 % (11.5-15.5); WBC 12.4 k/uL (3.8-10.6)
[2021-04-27 08:44] LABS: INR 1.1 (<1.2); Prothrombin Time 11.4 sec (9.0-12.0)
[2021-04-27 08:52] LABS: Calcium 8.2 mg/dL (8.4-10.2)
[2021-04-27 08:55] LABS: Partial Thromboplastin Time 19.6 sec (22.0-30.0)
[2021-04-27 09:04] LABS: Phosphorus 5.4 mg/dL (2.5-4.5); Potassium 4.9 mmol/L (3.5-5.1)
[2021-04-27] MEDS: DEXAMETHASONE SOD PHOSPHATE 10 MG/ML 1 ML VIAL IVP SCH ×2 (10:05→19:53)
--- NOTE | 2021-04-27 10:25 | CT ---
EXAMINATION TYPE: CT angio chest DATE OF EXAM: 04/27/2021 COMPARISON: Chest x-ray earlier today HISTORY: covid, pe CT DLP: 317.8 mGycm. Automated Exposure Control for Dose Reduction was Utilized. CONTRAST: CTA scan of the thorax is performed with IV Contrast, patient injected with 100 mL of Isovue 370, pul monary embolism protocol. MIP Images are created on CT scanner and reviewed. FINDINGS: LUNGS: Exam suboptimal as patient unable to hold breath. Background mild to moderate underlying emphy sematous change is present. There is small left pleural effusion. There are multifocal peripheral imtiaz undglass opacities and reticular increased markings. No pneumothorax seen bilaterally MEDIASTINUM: There is satisfactory enhancement of the pulmonary artery and its branches, there is no CT evidence for pulmonary embolism. Enlarged right and left pulmonary arteries consistent with under lying pulmonary artery hypertension. There are no greater than 1 cm hilar or mediastinal lymph nodes. Cardiomegaly is present. Calcification at level of the mitral and aortic valves. Moderate to severe coronary artery calcifications. Moderate to severe biatrial dilatation is present. Large bore right i nternal jugular catheter terminates in SVC. OTHER: Demineralization with old healed fracture deformity right proximal humerus. Exaggerated thora cic kyphosis with bridging osteophytes. IMPRESSION: 1. Suboptimal study without acute pulmonary embolism. 2. Background chronic emphysematous and pulmonary fibrotic change with cardiomegaly and small left pl eural effusion. Bilateral multifocal infiltrates and/or edema are identified which correlates with ch est x-ray. Consider combination of CHF exacerbation and typical infectious process.
--- NOTE | 2021-04-27 10:35 | CT ---
EXAMINATION TYPE: CT soft tissue neck w con DATE OF EXAM: 04/27/2021 HISTORY: covid, pe, neck hematoma COMPARISON: NONE CT DLP: 195.8 mGycm. Automated Exposure Control for Dose Reduction was Utilized. TECHNIQUE: CT scan of the neck is performed with IV Contrast, patient injected with 100 mL of Isovue 370, axial images are obtained, coronal and sagittal reformatted images are reviewed. FINDINGS: Suboptimal study as patient would not hold still Airway: Small size or atrophic thyroid. Airway patent. Parotid/submandibular glands: No gross abnormality seen. 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 Vertebral arteries patent to basilar junction. Left vertebral artery is noted dominant. Osseous Structures: Marked underlying scoliosis. Exaggerated cervical curvature. Other: Nasal septum is deviated to right of midline. Patchy opacification of bilateral mastoid air cells. No suspicious greater than 1 cm neck adenopathy. No concerning focal fluid collection. IMPRESSION: 1. No suspicious focal fluid collection or hematoma. 2. Patchy opacification bilateral mastoid air cells, correlate clinically to exclude mastoiditis. 3. Suboptimal study with motion artifact degradation. Suspect complete occlusion of the left internal carotid artery. Correlate clinically. Consider carotid ultrasound confirmation.
--- NOTE | 2021-04-27 10:57 | P.PN ---
<Kobi Pruitt - Last Filed: 04/27/21 10:05> Subjective Progress Note Date: 04/27/21 Hospital Course: Patient is an 85-year-old female with end-stage renal disease on hemodialysis Thursday//Thursday, hypertension, dyslipidemia, diabetes mellitus type 2, COPD with chronic respiratory failure 3L home O2 dependent and multiple other comorbid conditions. She presented to the hospital secondary to shortness of breath on 04/22/21. She was recently here from 04/07/21-04/18/21 and was diagnised with COVID during that hospital stay. She should have received 10 days f decadron at this point. She had been found to be COVID positive approximately 5 days before admission and was requiring increased oxygenation. She was unable to fully undergo her last hemodialysis treatment secondary to inadequate flow from the catheter. In the ER she underwent an extensive evaluation. Initial chest x-ray demonstrated fluid overload, EKG revealed atrial flutter with variable block at 90, and laboratory analysis was remarkable for a white blood cell count of 18.2, hemoglobin 10.7 (at baseline), platelet count 148 at her baseline, potassium of 6.2, BUN 100, and creatinine 9.56, she was again positive for COVID-19 via nucleic acid testing. Patient underwent emergent hemodialysis. Her O2 sats continued to worsen. A d-dimer was obtained. Elevated at 2.2. Lower extremity venous Dopplers were negative. She was started on a heparin drip with concerns for pulmonary embolism however we delayed initiating a CTA of the chest as they're hoping for renal recovery. She continued to require more oxygen. Case is discussed with pulmonary and nephrology and is felt she may have continued fluid overload. She will undergo another round of dialysis. She bite her tongue on 04/24 and PTT >200 and patient developed significant tongue and neck hematoma. Her heparin drip had already been on hold was formally d iscontinued. She had considered hospice but has now reconsidered and has decided to resume undergoing hemodialysis again. Patient received dialysis 04/22/21, 04/23/21, 04/24/21, 04/26/21 and is currently undergoing hemodialysis again today. Physical Examination: Patient seen and examined at bedside this morning. She was on 12 L high flow nasal cannula with SpO2 of 93% vital signs otherwise stable. Patient reports that she feels very tired this morning, states she was unable to sleep last night. She reports continued shortness of breath, but denies having any other complaints at this time including headache, lightheadedness, dizziness, chest pain, palpitations, or any numbness/tingling/weakness in her extremities. Hematoma of patient's tongue appears to be improving per documentation in rep orts from RN, this is my first time evaluating and tongue is swollen with hematoma present, however patient able to stick tongue out and move and had no difficulties with swallowing and denied any dysphasia. Patient also with hematoma to lower jaw and neck worse on left. General: non toxic, no distress, appears at stated age Derm: ecchymosis anterior neck hematoma radiating up into left lateral side of neck and jaw, Head:normocephalic, symmetric Eyes: EOMI, no lid lag, anicteric sclera Mouth: no lip lesion, mucus membranes moist, tongue ecchymotic with slight swelling , able to move tongue, swallow without difficulties and control secretions. Cardiovascular: S1S2 reg, no murmur, positive posterior tibial pulses bilaterally, Lungs: Respirations even, regular, and unlabored on 12 L high flow nasal cannula, lungs with crackles bilateral bases, no rhonchi, rales, or wheezes present. No Accessory muscle use Abdominal: soft, nontender to palpation, no guarding, no appreciable organo megaly Ext: no gross muscle atrophy, trace edema, no contractures Neuro: CN II-XI grossly intact, no focal neuro deficits Psych: Alert, oriented, appropriate affect Acute Exacerbation of Diastolic CHF with EF 50-55%, Severe TR and Severe Pulm HTN -Fluid optimization with HD, completed X 4, repeat HD today -Lopressor -Not chronically on any inhibitor Hematoma tongue and anterior neck -Heparin drip on hold -Close monitoring -Consult ENT, placed order for CT with contrast of neck DIALLO requiring HD with fluid overload, hyperkalemia Mineral Bone Disease -Fluid optimization with HD, completed X 4, repeat HD today -Nephrology following, added Aranesp appreciate further recommendations -Continue with Renvela Elevated d-dimer - heparin gtt discontinued - venous dopplers negative - pulmonayr feels symptoms more likely related to recent COVID the Pulmonary embolism at this time. Recent COVID-19 Acute on chronic hypoxic respiratory failure COPD SIRS, undetermined etiology -Continue with Decadron. It appears that the patient has completed 10 days of dexamethasone prior to admission. -Continue vitamin C, vitamin D, and zinc -Pulmonary recommendations -When necessary bronchodilators and scheduled Symbicort -Pro calcitonin is markedly elevated at 1 however this is likely secondary to her end-stage renal disease which can raise pro-calcitonin levels. Blood cultures negative to date. -Continue to follow chest x-ray -Patient had been getting cefdinir on outpatient basis which is currently held. As she should have completed ABX for CAP from last admission Insulin-dependent Diabetes mellitus type 2 -Continue with glycemic protocol and NovoLog sliding scale -Appears to only be on sliding scale insulin at baseline Paroxysmal atrial fibrillation/flutter -Heparin on hold secondary to tongue and neck hematoma. -Continue with amiodarone, metoprolol Stage 2 Pressure Ulcer, POA - frequent turns - off loading - barrier cream Chronic: GERD HLD Hypothyroidism HX CVA HX of Lap Krystal 03/12 with DIALLO and HD Hospice plans to re-eval patient and meet with patient and family on thursday. DVT prophylaxis: SCDs, Eliquis held secodary to hematoma of tongue and neck Discussed with: Patient and RN Anticipated discharge: 3-[address]: return to [facility] A total of 40 minutes was spent on the care of this complex patient more than 50% of the time was spent in counseling and care coordination. Objective - Vital Signs Vital signs: Vital Signs Temp 97.9 F 04/27/21 00:00 Pulse 82 04/27/21 03:34 Resp 18 04/27/21 05:07 BP 91/54 04/27/21 03:34 Pulse Ox 96 04/27/21 05:07 Intake & Output 04/26/21 04/27/21 04/27/21 18:59 06:59 18:59 Intake Total 776 Output Total 2500 Balance -1724 Weight 66.5 kg Intake: Oral 476 Hemodialysis 300 Output: Hemodialysis 2500 Other: Voiding Method Diaper Diaper Incontinent Incontinent # Voids 0 # Bowel Movements 0 0 - Labs CBC & Chem 7: 04/27/21 07:50 04/27/21 07:47 Labs: Abnormal Lab Results - Last 24 Hours (Table) 04/26/21 04/26/21 04/26/21 Range/Units 06:16 11:49 16:42 POC Glucose (mg/dL) 228 H 174 H (75-99) mg/dL Iron 31 L (50-170) ug/dL TIBC 200 L (228-460) ug/dL Transferrin 143.0 L (204.0-354.0) mg/dL Ferritin 1899.0 H (10.0-291.0) ng/mL 04/26/21 04/27/21 Range/Units 20:41 06:01 POC Glucose (mg/dL) 266 H 223 H (75-99) mg/dL Iron (50-170) ug/dL TIBC (228-460) ug/dL Transferrin (204.0-354.0) mg/dL Ferritin (10.0-291.0) ng/mL Microbiology - Last 24 Hours (Table) 04/22/21 18:15 Blood Culture - Preliminary Blood No Growth after 96 hours 04/22/21 18:00 Blood Culture - Preliminary Blood No Growth after 96 hours <Jennifer Barakat - Last Filed: 04/27/21 17:16> Subjective I reviewed the documentation as provided by the JOSSY above, who is the original author of this note. I agree with the documented assessment and plan, with the following changes: added carotid doppler. Pt has left ICA occlusion, needs to be on antiplatelet, preferrably plavix due to being on eliquis, and better bleeding profile when compared with aspirin/eliquis combination. No major hgb drop, will trend CBC and resume AC tomorrow if stable. Objective - Vital Signs Vital signs: Vital Signs Temp 97.0 F L 04/27/21 12:01 Pulse 85 04/27/21 12:01 Resp 20 04/27/21 12:01 BP 104/51 04/27/21 12:01 Pulse Ox 93 L 04/27/21 08:55 Intake & Output 04/26/21 04/27/21 04/27/21 18:59 06:59 18:59 Intake Total 776 490 Output Total 2500 1000 Balance -1724 -510 Weight 66.5 kg Intake: IV 10 Invasive Line 1 10 Oral 476 180 Hemodialysis 300 300 Output: Hemodialysis 2500 1000 Other: Voiding Method Diaper Diaper Diaper Incontinent Incontinent Incontinent # Voids 0 # Bowel Movements 0 0 - Labs CBC & Chem 7: 04/27/21 07:50 04/27/21 07:47 Labs: Abnormal Lab Results - Last 24 Hours (Table) 04/26/21 04/27/21 04/27/21 Range/Units 20:41 06:01 07:47 WBC (3.8-10.6) k/uL RBC (3.80-5.40) m/uL Hgb (11.4-16.0) gm/dL Hct (34.0-46.0) % MCHC (31.0-37.0) g/dL RDW (11.5-15.5) % Plt Count (150-450) k/uL APTT 19.6 L (22.0-30.0) sec Chloride (98-107) mmol/L Carbon Dioxide (22-30) mmol/L BUN (7-17) mg/dL Creatinine (0.52-1.04) mg/dL Glucose (74-99) mg/dL POC Glucose (mg/dL) 266 H 223 H (75-99) mg/dL Calcium (8.4-10.2) mg/dL Phosphorus (2.5-4.5) mg/dL 04/27/21 04/27/21 04/27/21 Range/Units 07:47 07:50 11:48 WBC 12.4 H (3.8-10.6) k/uL RBC 3.26 L (3.80-5.40) m/uL Hgb 9.8 L (11.4-16.0) gm/dL Hct 32.1 L (34.0-46.0) % MCHC 30.6 L (31.0-37.0) g/dL RDW 16.9 H (11.5-15.5) % Plt Count 104 L (150-450) k/uL APTT (22.0-30.0) sec Chloride 110 H (98-107) mmol/L Carbon Dioxide 21 L (22-30) mmol/L BUN 30 H (7-17) mg/dL Creatinine 4.05 H (0.52-1.04) mg/dL Glucose 187 H (74-99) mg/dL POC Glucose (mg/dL) 110 H (75-99) mg/dL Calcium 8.2 L (8.4-10.2) mg/dL Phosphorus 5.4 H (2.5-4.5) mg/dL 04/27/21 Range/Units 16:46 WBC (3.8-10.6) k/uL RBC (3.80-5.40) m/uL Hgb (11.4-16.0) gm/dL Hct (34.0-46.0) % MCHC (31.0-37.0) g/dL RDW (11.5-15.5) % Plt Count (150-450) k/uL APTT (22.0-30.0) sec Chloride (98-107) mmol/L Carbon Dioxide (22-30) mmol/L BUN (7-17) mg/dL Creatinine (0.52-1.04) mg/dL Glucose (74-99) mg/dL POC Glucose (mg/dL) 220 H (75-99) mg/dL Calcium (8.4-10.2) mg/dL Phosphorus (2.5-4.5) mg/dL Microbiology - Last 24 Hours (Table) 04/22/21 18:15 Blood Culture - Preliminary Blood No Growth after 96 hours 04/22/21 18:00 Blood Culture - Preliminary Blood No Growth after 96 hours
[2021-04-27 11:50] LABS: Glucose,Whole Blood 110 mg/dL (75-99)
--- NOTE | 2021-04-27 12:54 | P.PN ---
Subjective Progress Note Date: 04/27/21 I was asked to evaluate this patient because of an acute on chronic hypoxic respiratory failure secondary to COVID 19 pneumonia. The patient is known to have incisional disease and the patient on hemodialysis. The patient also known to have COPD, chronic atrial fibrillation, hypertension, hyperlipidemia.. The patient is usually on 3 L of oxygen by nasal cannula. The patient is a retirement resident. The patient was noted to be more short of breath. Note that the patient was hospitalized on 04/07/2021 for respiratory failure and at that time the patient was also treated for volume overload and possible infection the patient was given IV antibiotics and BiPAP for respiratory support. Note that initial over 19 testing on 04/07/2021 was negative. Subsequent testing a 04/12/2021, 04/15/2021 and 04/22/2021 came back all positive. Note that the patient's vaccination status is unknown. She was having issues with oxygenation and her oxygen flow was brought up to 5 L per minute nasal cannula. She undergoes dialysis 3 times a week and her dialysis on Thursday was cut short due to inadequate flow from the dialysis catheter. Based on that, the patient was brought into the hospital for further evaluation. The patient reported some chronic nonproductive cough. She denies having any other active complaints. No reported fever. No reported chills. No nausea. No vomiting. No abdominal pain. No chest pain. Chest x-ray was done in the emergency department was consistent with fluid overload. The patient was sent and was at 15.1 with a hemoglobin of 10 and a platelet count of 116. The sodium was 135 with a potassium level of 6.2 with a chloride of 11 her bicarb level XXI. BUN was 100 and a creatinine was at 9.5. The ferritin level was 1498. The LDH level was 1020 and a CRP level was at 1.8. Total protein was 5.6. LFTs were essentially within normal limits. Calcium level is at 8.2. Coagulation profile was essentially within normal limits. Underwent hemodialysis yesterday and the repeat electrolytes show a sodium level of 131, potassium level is down to 5.2 and the creatinine is down to 6.46 with a BUN of 65. Morning blood sugar is at 89. Overnight, the oxygenation also got more impaired and the patient has been brought up to 10 L of Oxymizer nasal cannula. She is on long-term anticoagulant with Eliquis 2.5 mg twice a day. She is also started on Decadron 6 mg IV every 24 hours. Outpatient medications have been ordered resume. 04/24/2021, the patient is being seen for a follow-up. The patient continues to BE short of breath and 80 disease of oxygen by nasal cannula. At time of my evaluation, the pulse ox was as low as 84%. Based on that, the patient was placed on 12 L of oxygen by nasal cannula with titrate FiO2 to maintain saturation above 90%. The patient underwent hemodialysis yesterday. A total of 2 L of ultrafiltration was done. Repeat chest x-ray showed persistent bilateral pulmonary interstitial infiltrates which could be fluid versus COVID 19 related limited cough and congestion. She is afebrile. Pulmonary embolism was suspected by the hospitalist and the patient was started on IV heparin. Those being adjusted based on underlying PTT. The patient's white cell count is at 20.4 with a hemoglobin of 10.5 and a platelet count of 168. On today's evaluation the sodium is 130 with a potassium level of 4.3 and a BUN of 43 with a creatinine of 5.18. I discussed the case with the primary care team and nephrology. The patient is going to have another session of hemodialysis today. The Doppler of the lower extremity was done and it was negative for DVT. 04/25/2021, patient is doing poorly.she is still short of breath. She remains on 15 L of oxygen high nasalplan the patient's breathing continues to be labored for now.the patient declined having dialysis yesterday. Furthermore, she had swelling of the tongue in addition to a hematoma forming in the base of the tongue that was quite swollen after she bit her tongue. No active bleeding at this point in time. IV heparin has been discontinued.the patient is being considered for hospice care. To 40,022, patient is being seen for a follow-up. The patient seems to have agreed to undergo hemodialysis today. The patient remains on 15 L about 2 by nasal cannula. Pulse ox 90%. Her overall respiratory status is unchanged compared to yesterday. Her breathing is labored. White cell count 11.8 with hemoglobin of 0.6, BUN is a 48 with a creatinine of 6.35. Blood sugars at 238. Blood cultures of been negative. The patient had signs of volume overload and the patient improved initially with hemodialysis ultrafiltration. Nevertheless, oxidation remains unchanged and the patient continues to be hypoxic. As such, we'll believe that her hypoxic respiratory failure is essentially due to progression of Covid 19 related pneumonia. Pneumonia. No interval drop in hemoglobin. The patient remains on Decadron 6 mg IV every 12 hours. The patient is also on assisted anticaogulation on Eliquis and this was stopped due to tongue hematoma 04/27/2021, patient is postoperative day of the chest and the neck. No evidence of any pulmonary embolism. Some chronic inflammatory and chronic changes in lung bases noted. There is some background emphysema and chronic fibrotic changes and small left-sided pleural effusion. Patient underwent hemodialysis yesterday. Another session of hemodialysis being done today post CT angiogram. Meanwhile, CAT scan of the neck not also acute abnormalities. The patient is currently feeling better. She is on 12 L of oxygen by nasal cannula. She is on Decadron 6 mg IV every 12 hours. No worsening shortness of breath. The tongue hematoma is unchanged. Neck hematoma is also unchanged. Afebrile. No altered mentation. Considering hospice care still. Objective - Vital Signs Vital signs: Vital Signs Temp 97.0 F L 04/27/21 12:01 Pulse 85 04/27/21 12:01 Resp 20 04/27/21 12:01 BP 104/51 04/27/21 12:01 Pulse Ox 93 L 04/27/21 08:55 Intake & Output 04/26/21 04/27/21 04/27/21 18:59 06:59 18:59 Intake Total 776 310 Output Total 2500 1000 Balance -1724 -690 Weight 66.5 kg Intake: IV 10 Invasive Line 1 10 Oral 476 Hemodialysis 300 300 Output: Hemodialysis 2500 1000 Other: Voiding Method Diaper Diaper Diaper Incontinent Incontinent Incontinent # Voids 0 # Bowel Movements 0 0 - Exam GENERAL EXAM: Alert, pleasant, 85-year-old white female on 15 L of oxygen with pulse ox of 93%, symptomatic bunions of the bed, breathing comfortably, comfortable in no apparent distress. HEAD: Normocephalic/atraumatic. EYES: Normal reaction of pupils, equal size. Conjunctiva pink, sclera white. NOSE: Clear with pink turbinates. THROAT: No erythema or exudates.the patient had a swollen tongue which is also ecchymotic. The patient also has area of skin ecchymosis under her chin and occupying the anterior neck area. NECK: No masses, no JVD, no thyroid enlargement, no adenopathy. CHEST: No chest wall deformity. Symmetrical expansion. Right upper chest X-ray hemodialysis catheter is in place, there is a permacath in the right IJ. LUNGS: Equal air entry with no crackles, wheeze, rhonchi or dullness. A few bibasilar crackles present CVS: Regular rate and rhythm, normal S1 and S2, no gallops, no murmurs, no rubs ABDOMEN: Soft, nontender. No hepatosplenomegaly, normal bowel sounds, no guarding or rigidity. EXTREMITIES: No clubbing, no edema, no cyanosis, 2+ pulses and upper and lower extremities. MUSCULOSKELETAL: Muscle strength and tone normal. SPINE: No scoliosis or deformity SKIN: No rashes CENTRAL NERVOUS SYSTEM: Alert and oriented -3. No focal deficits, tone is normal in all 4 extremities. PSYCHIATRIC: Alert and oriented -3. Appropriate affect. Intact judgment and insight. - Labs CBC & Chem 7: 04/27/21 07:50 04/27/21 07:47 Labs: Abnormal Lab Results - Last 24 Hours (Table) 04/26/21 04/26/21 04/26/21 Range/Units 06:16 16:42 20:41 WBC (3.8-10.6) k/uL RBC (3.80-5.40) m/uL Hgb (11.4-16.0) gm/dL Hct (34.0-46.0) % MCHC (31.0-37.0) g/dL RDW (11.5-15.5) % Plt Count (150-450) k/uL APTT (22.0-30.0) sec Chloride (98-107) mmol/L Carbon Dioxide (22-30) mmol/L BUN (7-17) mg/dL Creatinine (0.52-1.04) mg/dL Glucose (74-99) mg/dL POC Glucose (mg/dL) 174 H 266 H (75-99) mg/dL Calcium (8.4-10.2) mg/dL Phosphorus (2.5-4.5) mg/dL Iron 31 L (50-170) ug/dL TIBC 200 L (228-460) ug/dL Transferrin 143.0 L (204.0-354.0) mg/dL Ferritin 1899.0 H (10.0-291.0) ng/mL 04/27/21 04/27/21 04/27/21 Range/Units 06:01 07:47 07:47 WBC (3.8-10.6) k/uL RBC (3.80-5.40) m/uL Hgb (11.4-16.0) gm/dL Hct (34.0-46.0) % MCHC (31.0-37.0) g/dL RDW (11.5-15.5) % Plt Count (150-450) k/uL APTT 19.6 L (22.0-30.0) sec Chloride 110 H (98-107) mmol/L Carbon Dioxide 21 L (22-30) mmol/L BUN 30 H (7-17) mg/dL Creatinine 4.05 H (0.52-1.04) mg/dL Glucose 187 H (74-99) mg/dL POC Glucose (mg/dL) 223 H (75-99) mg/dL Calcium 8.2 L (8.4-10.2) mg/dL Phosphorus 5.4 H (2.5-4.5) mg/dL Iron (50-170) ug/dL TIBC (228-460) ug/dL Transferrin (204.0-354.0) mg/dL Ferritin (10.0-291.0) ng/mL 04/27/21 04/27/21 Range/Units 07:50 11:48 WBC 12.4 H (3.8-10.6) k/uL RBC 3.26 L (3.80-5.40) m/uL Hgb 9.8 L (11.4-16.0) gm/dL Hct 32.1 L (34.0-46.0) % MCHC 30.6 L (31.0-37.0) g/dL RDW 16.9 H (11.5-15.5) % Plt Count 104 L (150-450) k/uL APTT (22.0-30.0) sec Chloride (98-107) mmol/L Carbon Dioxide (22-30) mmol/L BUN (7-17) mg/dL Creatinine (0.52-1.04) mg/dL Glucose (74-99) mg/dL POC Glucose (mg/dL) 110 H (75-99) mg/dL Calcium (8.4-10.2) mg/dL Phosphorus (2.5-4.5) mg/dL Iron (50-170) ug/dL TIBC (228-460) ug/dL Transferrin (204.0-354.0) mg/dL Ferritin (10.0-291.0) ng/mL Microbiology - Last 24 Hours (Table) 04/22/21 18:15 Blood Culture - Preliminary Blood No Growth after 96 hours 04/22/21 18:00 Blood Culture - Preliminary Blood No Growth after 96 hours Assessment and Plan Plan: 1. Acute hypoxic respiratory failure , most likely secondary to fluid overload. Chest x-ray showing pulmonary vessel congestion and small effusion the left lung base. The patient was treated for COVID 19 based on an earlier hospitalization. This was an incidental finding. Please refer to the admission that occurred on 04/14/2021. Noted the patient underwent 2 sessions of hemodialysis during this current admission.Nevertheless, the patient continued to be hypoxic. Currently on 12 L about 2 by nasal cannula. Pulmonary status is stable. No worsening shortness of breath. Underwent hemodialysis yesterday and another session is being done today. CT angiogram of the chest was noted. Remains on Decadron regarding her code 19 infection. 2. Newly diagnosed COVID-19 infection, patient is asymptomatic, this is a incidental finding as part of the preadmission requirement for ECF placement. Note that patient had a negative COVID-19 PCR on admission on 04/07/2021. Her vaccination status is unclear, patient thinks she is vaccinated, however she is a poor historian she was placed back on Decadron 6 mg by mouth twice a day. CT angiogram showed some chronic fibrotic changes and emphysema in the background along with some chronic inflammatory changes. No evidence of any pulmonary embolism. 3. chronic CHF with diastolic dysfunction 4. End-stage renal disease on hemodialysis, this was recently initiated after patient sustained acute kidney injury in February following her cholecystectomy. She has a right subclavian temporary hemodialysis catheter in place, she is being dialyzed on Thursday schedule 5. Recent cholecystectomy on 03/08/2021 at [facility] 6. Dementia 7. Chronic A. fib on Eliquis 8. Diabetes mellitus type 2 9. COPD 10. Former smoker, quit smoking 40 years ago, does carry [id number] smoking history 11.Valvular heart disease with mild aortic stenosis and regurgitation, moderate mitral regurgitation, moderate to severe tricuspid regurg and severe pulmonary hypertension with right-sided pressure of 71.4 mmHg 12. CVA 13. Hypertension 14 hematoma of the tongue, currently off Eliquis Plan Continue HD, undergoing hemodialysis today Wean down the FiO2 to maintain a saturation above 90% CT of the chest was noted CT of the neck was noted Consider hospice care.. patient has a DNR/DNI CODE STATUS.
[2021-04-27 16:48] LABS: Glucose,Whole Blood 220 mg/dL (75-99)
--- NOTE | 2021-04-27 17:46 | CONS ---
CONSULTATION DATE OF CONSULTATION: 04/27/2021 REASON FOR CONSULTATION: Hematoma of the tongue and anterior neck. HISTORY OF PRESENT ILLNESS: The patient is an 85-year-old female who is a poor historian. She was admitted to [facility] on 04/22/2021 complaining of shortness of breath. The patient at that time was found to be COVID-positive and was in poor health. She has a history of chronic renal failure and undergoes dialysis. At the time of her admission it was felt that she was experiencing congestive heart failure, pleural effusion and volume overload. At the time that she was initially admitted to the hospital, she was placed on heparin. On approximately 04/24/2021 it was noted that the patient had accidentally bitten her tongue while she had her dentures in in place. She subsequently developed a suspected hematoma of the tongue, floor of the mouth and of the anterior neck. The heparin was immediately stopped. I was consulted because of concern regarding the hematoma in the anterior neck and its possible effect on the airway. The patient has not experienced at any time difficulty breathing, talking or swallowing. At the time I was contacted for consultation, I ordered a CT scan of the anterior neck with contrast. This did not show any evidence of a hematoma of the neck. It did show benign mastoid findings of opacification bilaterally of the mastoid air cells. The patient does not complain of any ear symptoms; therefore this is not a significant finding. That is to say, this patient does not have mastoiditis. PAST MEDICAL HISTORY: Past medical history reveals patient has NO KNOWN ALLERGIES TO MEDICATIONS. Her home medications include DuoNeb nebulizer, insulin, Renvela, lopressor, Marinol, Eliquis, Pepcid, Lipitor, Decadron, Levoxyl, Breo-Ellipta and Cordarone. REVIEW OF SYSTEMS: Cardiovascular system is positive for hypertension and atrial fibrillation. Respiratory is positive for COPD and emphysema. Gastrointestinal is positive for GERD (gastroesophageal reflux disorder). Metabolic/endocrine system is positive for hypothyroidism, type 1 diabetes mellitus and hypercholesterolemia. Urinary system is positive for chronic renal failure. The remainder of the review of systems is essentially noncontributory. PHYSICAL EXAMINATION: The patient is an 85-year-old female who is alert and cooperative but is a poor historian. HEENT examination: The patient is normocephalic. Tympanic membranes are normal. Middle ear spaces are free of any fluid or infection. Pupils are equal, round and reactive to light and accommodation. Extraocular movements are within normal limits. Intranasal examination reveals severe septal deviation to the left with compensatory hypertrophy of inferior turbinates. Examination of oropharynx reveals that the patient's tongue is not particularly swollen, but it is quite ecchymotic. The floor of the mouth also shows mild edema, but no evidence of hematoma of either the tongue or of the floor of the mouth. However, there is generalized ecchymosis of the floor of the mouth.. Attention towards the patient's neck reveals the patient has a somewhat fatty neck, but no evidence of any organized or firmness The skin over the area is quite ecchymotic and there might be a slight amount of tissue edema but no firmness is noted. The ecchymosis of the neck tends to be dependent and extends down to the mid neck. Again, I do not detect a formed hematoma in the neck or floor of mouth or tongue at this time. This is consistent with the findings on the CT scan. The remainder of the head and neck exam is essentially within normal limits. Chest/cardiovascular: Lung santos show scattered wheezes. The patient is in regular sinus rhythm. Abdomen: There is no evidence of any masses, megaly or tenderness. Abdomen is soft. The remainder of physical exam is unremarkable. IMPRESSION: Hematoma of tongue, anterior neck, resolving/resolved. PLAN: At this point no ENT intervention is necessary. The small amount of residual tissue edema that the patient has and if there is any bleeding in the tissue this will resolve on its own. I will sign off of this patient at this time. I want to take this opportunity to thank you for allowing me to assist in the care of your patient. If I could be of any further assistance, please feel free to call my office. ADDENDUM: The patient has been undergoing renal dialysis while she is in the hospital and again the heparin has been stopped. MMODL / IJN: [id number] / MORAIMA
--- NOTE | 2021-04-27 19:50 | US ---
EXAMINATION TYPE: US carotid duplex BILAT DATE OF EXAM: 04/27/2021 COMPARISON: CT 2021 CLINICAL HISTORY: left ICA occlusion. Exam done portable on covid patient EXAM MEASUREMENTS: RIGHT: Peak Systolic Velocity (PSV) cm/sec ----- Right CCA: 18.3 ----- Right ICA: 30.2 ----- Right ECA: 33.2 ICA/CCA ratio: 1.7 RIGHT: End Diastole cm/sec ----- Right CCA: 9.3 ----- Right ICA: 13.6 ----- Right ECA: 0.0 LEFT: Peak Systolic Velocity (PSV) cm/sec ----- Left CCA: 26.7 ----- Left ICA: No flow detected. ----- Left ECA: 131.4 ICA/CCA ratio: NA LEFT: End Diastole cm/sec ----- Left CCA: 0.0 ----- Left ICA: No flow detected. ----- Left ECA: 10.1 VERTEBRALS (direction of flow): Right Vertebral: Retrograde Left Vertebral: Antegrade Rhythm: Arrhythmia Difficult and limited study due to patient heavy breathing and coughing during exam IMPRESSION: 1. Left ICA appears occluded at the bifurcation. 2. Retrograde right vertebral artery flow. 3. Less than 50% stenosis of the right carotid location. Criteria for Assigning % of Stenosis / Diameter reduction (Estimation based on the indirect measurements of the internal carotid artery velocities (ICA PSV). 1. Normal (no stenosis)=ICA PSV < 125 cm/s: ratio < 2.0: ICA EDV<40 cm/s. 2. Less than 50% stenosis=ICA PSV < 125 cm/s: ratio < 2.0: ICA EDV<40 cm/s. 3. 50 to 69% stenosis=ICA PSV of 125 to 230 cm/s: ration 2.0 ? 4.0: ICA EDV 40-100 cm/s. 4. Greater than 70% stenosis to near occlusion= ICA PSV > 230 cm/s: ratio > 4.0: ICA EDV > 100 cm/s. 5. Near occlusion= ICA PSV velocities may be low or undetectable: variable ratio and ICA EDV. 6. Total occlusion=unable to detect flow.
[2021-04-27] MEDS: ATORVASTATIN 10 MG TAB PO SCH (19:53)
[2021-04-27 20:35] LABS: Glucose,Whole Blood 180 mg/dL (75-99)
[2021-04-28] MEDS: LEVOTHYROXINE 88 MCG TAB PO SCH (05:50)
[2021-04-28] MEDS: AMIODARONE 200 MG TAB PO SCH (05:50)
[2021-04-28] MEDS: INSULIN ASPART (NovoLOG) 100 UNIT/ML VIAL SQ SCH ×4 (05:52→20:22)
[2021-04-28 06:07] LABS: Glucose,Whole Blood 148 mg/dL (75-99)
[2021-04-28] MEDS: SYMBICORT 160-4.5 MCG INHALER INHALATION SCH ×2 (07:12→20:18)
[2021-04-28] MEDS: ALBUTEROL HFA INHALER INHALATION PRN ×3 (07:12→16:34)
[2021-04-28] MEDS: TIOTROPIUM 2.5 MCG INHALER INHALATION PRN (07:12)
[2021-04-28] MEDS: SEVELAMER 800 MG TAB PO SCH ×3 (08:15→17:56)
[2021-04-28] MEDS: DEXAMETHASONE SOD PHOSPHATE 10 MG/ML 1 ML VIAL IVP SCH ×2 (08:15→20:22)
[2021-04-28] MEDS: ASCORBIC ACID 500 MG TAB PO SCH (08:15)
[2021-04-28] MEDS: FAMOTIDINE 20 MG/2 ML VIAL IV SCH (08:15)
[2021-04-28] MEDS: APIXABAN 2.5 MG TABLET PO SCH ×2 (08:16→20:22)
[2021-04-28] MEDS: CLOPIDOGREL 75 MG TAB PO SCH (08:16)
[2021-04-28] MEDS: METOPROLOL TARTRATE 25 MG TAB PO SCH ×2 (08:16→17:58)
[2021-04-28] MEDS: CHOLECALCIFEROL 125 MCG (5000 IU) TABLET PO SCH (08:16)
[2021-04-28 08:23] LABS: Anisocytosis Slight; HCT 31.5 % (34.0-46.0); HGB 9.7 gm/dL (11.4-16.0); Hypochromasia Marked; MCH 30.5 pg (25.0-35.0); MCHC 30.8 g/dL (31.0-37.0); MCV 98.9 fL (80.0-100.0); Macrocytosis Slight; Mean Platelet Volume 8.1; Platelet Count 107 k/uL (150-450); RBC 3.19 m/uL (3.80-5.40); RDW 17.1 % (11.5-15.5); WBC 13.6 k/uL (3.8-10.6)
[2021-04-28 08:38] LABS: Albumin 2.8 g/dL (3.5-5.0); C Reactive Protein 2.2 mg/dL (<1.0); Magnesium 2.1 mg/dL (1.6-2.3); Potassium 4.3 mmol/L (3.5-5.1); Total Bilirubin 0.6 mg/dL (0.2-1.3); Total Protein 5.4 g/dL (6.3-8.2)
--- NOTE | 2021-04-28 08:50 | P.PN ---
Subjective Patient is seen in follow-up for acute kidney injury, currently hemodialysis dependent. Tolerated 1 L ultrafiltration yesterday. Patient wants to continue with hemodialysis at this time. She is currently on 15 L high flow cannula. Underwent CT of the neck yesterday which showed complete occlusion of the left internal carotid artery. Also underwent CTA which showed no PE. Vital signs are stable. HEENT: Nasal cannula noted. LUNGS: Breath sounds decreased. HEART: Rate and Rhythm are regular. ABDOMEN: No distention. EXTREMITITES: No edema. Objective - Vital Signs Vital signs: Vital Signs Temp 97.6 F 04/28/21 08:42 Pulse 86 04/28/21 08:42 Resp 20 04/28/21 08:42 BP 97/62 04/28/21 08:42 Pulse Ox 98 04/28/21 08:42 Intake & Output 04/27/21 04/28/21 04/28/21 18:59 06:59 18:59 Intake Total 540 130 Output Total 1000 0 Balance -460 0 130 Weight 64.5 kg Intake: IV 10 10 Invasive Line 1 10 Invasive Line 3 10 Oral 230 120 Hemodialysis 300 Output: Stool 0 Hemodialysis 1000 Other: Voiding Method Diaper Diaper Diaper Incontinent Incontinent Incontinent # Voids 0 # Bowel Movements 1 0 - Labs CBC & Chem 7: 04/28/21 08:00 04/28/21 08:00 Labs: Abnormal Lab Results - Last 24 Hours (Table) 04/27/21 04/27/21 04/27/21 Range/Units 07:47 07:47 11:48 WBC (3.8-10.6) k/uL RBC (3.80-5.40) m/uL Hgb (11.4-16.0) gm/dL Hct (34.0-46.0) % MCHC (31.0-37.0) g/dL RDW (11.5-15.5) % Plt Count (150-450) k/uL APTT 19.6 L (22.0-30.0) sec Chloride 110 H (98-107) mmol/L Carbon Dioxide 21 L (22-30) mmol/L BUN 30 H (7-17) mg/dL Creatinine 4.05 H (0.52-1.04) mg/dL Glucose 187 H (74-99) mg/dL POC Glucose (mg/dL) 110 H (75-99) mg/dL Calcium 8.2 L (8.4-10.2) mg/dL Phosphorus 5.4 H (2.5-4.5) mg/dL Lactate Dehydrogenase (313-618) U/L C-Reactive Protein (<1.0) mg/dL Total Protein (6.3-8.2) g/dL Albumin (3.5-5.0) g/dL 04/27/21 04/27/21 04/28/21 Range/Units 16:46 20:19 05:50 WBC (3.8-10.6) k/uL RBC (3.80-5.40) m/uL Hgb (11.4-16.0) gm/dL Hct (34.0-46.0) % MCHC (31.0-37.0) g/dL RDW (11.5-15.5) % Plt Count (150-450) k/uL APTT (22.0-30.0) sec Chloride (98-107) mmol/L Carbon Dioxide (22-30) mmol/L BUN (7-17) mg/dL Creatinine (0.52-1.04) mg/dL Glucose (74-99) mg/dL POC Glucose (mg/dL) 220 H 180 H 148 H (75-99) mg/dL Calcium (8.4-10.2) mg/dL Phosphorus (2.5-4.5) mg/dL Lactate Dehydrogenase (313-618) U/L C-Reactive Protein (<1.0) mg/dL Total Protein (6.3-8.2) g/dL Albumin (3.5-5.0) g/dL 04/28/21 04/28/21 Range/Units 08:00 08:00 WBC 13.6 H (3.8-10.6) k/uL RBC 3.19 L (3.80-5.40) m/uL Hgb 9.7 L (11.4-16.0) gm/dL Hct 31.5 L (34.0-46.0) % MCHC 30.8 L (31.0-37.0) g/dL RDW 17.1 H (11.5-15.5) % Plt Count 107 L (150-450) k/uL APTT (22.0-30.0) sec Chloride (98-107) mmol/L Carbon Dioxide 20 L (22-30) mmol/L BUN 29 H (7-17) mg/dL Creatinine 3.92 H (0.52-1.04) mg/dL Glucose 128 H (74-99) mg/dL POC Glucose (mg/dL) (75-99) mg/dL Calcium 8.0 L (8.4-10.2) mg/dL Phosphorus (2.5-4.5) mg/dL Lactate Dehydrogenase 1147 H (313-618) U/L C-Reactive Protein 2.2 H (<1.0) mg/dL Total Protein 5.4 L (6.3-8.2) g/dL Albumin 2.8 L (3.5-5.0) g/dL Microbiology - Last 24 Hours (Table) 04/22/21 18:15 Blood Culture - Preliminary Blood No Growth after 120 hours 04/22/21 18:00 Blood Culture - Preliminary Blood No Growth after 120 hours Assessment and Plan Plan: Assessment: 1. Acute kidney injury, currently hemodialysis dependent due to ATN in February 2021. 2. History of chronic kidney disease stage IIIb with unknown baseline renal function. 3. Volume overload. Improved with ultrafiltration. 4. Acute hypoxic respiratory failure. 5. COVID-19 infection. 6. Hyperkalemia secondary to acute kidney injury. Improved postdialysis. 7. 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 Phosphorus 5.4. 8. Acute on chronic diastolic CHF with moderate mitral regurgitation, moderate to severe tricuspid regurgitation and severe pulmonary hypertension. 9. A. fib. Rate controlled. 10. Anemia of chronic kidney disease. High ferritin noted. On Aranesp. Plan: Hemodialysis tomorrow. No evidence of renal recovery at this time. Add midodrine. Hold for systolic blood pressure above 110.
--- NOTE | 2021-04-28 09:13 | P.PN ---
<Kobi Pruitt - Last Filed: 04/28/21 08:43> Subjective Progress Note Date: 04/28/21 Hospital Course: Patient is an 85-year-old female with end-stage renal disease on hemodialysis Thursday//Thursday, atrial fibrillation on Eliquis, hypertension, dyslip idemia, diabetes mellitus type 2, COPD with chronic respiratory failure 3L home O2 dependent and multiple other comorbid conditions. She presented to the hospital secondary to shortness of breath on 04/22/21. She was recently here from 04/07/21-04/18/21 and was diagnised with COVID during that hospital stay. She should have received 10 days f decadron at this point. She had been found to be COVID positive approximately 5 days before admission and was requiring increased oxygenation. She was unable to fully undergo her last hemodialysis treatment secondary to inadequate flow from the catheter. In the ER she underwent an extensive evaluation. Initial chest x-ray demonstrated fluid overload, EKG revealed atrial flutter with variable block at 90, and laboratory analysis was remarkable for a white blood cell count of 18.2, hemoglobin 10.7 (at baseline), platelet count 148 at her baseline, potassium of 6.2, BUN 100, and creatinine 9.56, she was again positive for COVID-19 via nucleic acid testing. Patient underwent emergent hemodialysis. Her O2 sats continued to worsen. A d-dimer was obtained. Elevated at 2.2. Lower extremity venous Dopplers were negative. She was started on a heparin drip with concerns for pulmonary embolism however we delayed initiating a CTA of the chest as they're hoping for renal recovery. She continued to require more oxygen. Case is discussed with pulmonary and nephrology and is felt she may have continued fluid overload. She will undergo another round of dialysis. She bit her tongue on 04/24 and her PTT >200 which resulted in development of significant tongue and neck hematoma. Her heparin drip had already been on hold secondary to elevated PTT and at this time was formally discontinued. She had debated hospice but after discussing with her f dung she reconsidered and decided to resume undergoing hemodialysis and continuing treatment. Patient received dialysis 04/22/21, 04/23/21, 04/24/21, 04/26/21, and 04/27/21 and next Dialysis session is currently planned to be completed 04/29/21. ENT evaluated patient and sent pt for CTA neck and chest. CTA chest was negative for pulmonary emboli. CTA of neck incidentally revealed total occlusion of internal left carotid artery. Consult was placed to vascular surgery and after cleared by ENT for tongue and neck hematoma, patient then placed on Plavix and to resume Eliquis. Physical Examination: Patient seen and examined at bedside this morning. Her oxygen needs increased overnight and oxygen was turned up to 15 L to maintain SpO2 of 90%. However this morning patient is doing well and was turned back down to 12 L with SpO2 of 93%. CTA of neck completed yesterday incidentally revealed a total occlusion of internal Left carotid artery. Consult was placed to vascular surgery and after pt was cleared by ENT for tongue and neck hematoma, patient then placed on Plavix and to resume Eliquis. Pt states that she slept better last night, but continues to have pain in her buttocks. Pt has been assisted with turning q2 hours and has been offloading from coccyx with pillows and lying on her side. Tongue hematoma significantly improved and hematoma to neck also improving. Pt states having "a little" shortness of breath, but otherwise denies having any other complaints at this time including headache, lightheadedness, dizziness, chest pain, palpitations, or any numbness/tingling/weakness in her extremities. Morning labs reviewed and stable. Hemoglobin 9.7, thrombocytopenia with platelet count of 107. Inflammatory markers elevated with D-dimer 6.93, LDH 1147, and CRP of 2.2. General: non toxic, no distress, appears at stated age Derm: ecchymosis anterior neck hematoma radiating up into left lateral side of neck and jaw, Head:normocephalic, symmetric Eyes: EOMI, no lid lag, anicteric sclera Mouth: no lip lesion, mucus membranes moist, tongue ecchymotic with minimal swelling , able to move and protrude tongue, swallowing without any difficulties and controlling secretions. Cardiovascular: S1S2 reg, no murmur, positive posterior tibial pulses bilaterally, Lungs: Respirations even, regular, and unlabored on 12 L high flow nasal cannula, lungs with crackles bilateral bases, no rhonchi, rales, or wheezes present. No Accessory muscle use Abdominal: soft, nontender to palpation, no guarding, no appreciable o rganomegaly Ext: no gross muscle atrophy, trace edema, no contractures Neuro: CN II-XI grossly intact, no focal neuro deficits Psych: Alert, oriented, appropriate affect Assessment and plan of care: Acute Exacerbation of Diastolic Congestive Heart Failure with EF 50-55% Severe Tricuspid Regurgitation Severe Pulmonary Hypertension -Fluid optimization with HD, completed X 4, repeat HD today -Lopressor -Not chronically on any inhibitor Hematoma tongue and anterior neck -Heparin drip on hold -Close monitoring -ENT evaluated, no concerns for intervention at this time recommending patient follow-up in office if needed -CTA neck was completed and negative for suspicious focal fluid collection or hematoma showing patchy opacification of bilateral mastoid air cells an incidental finding of suspected complete occlusion of left internal carotid Acute Kidney Injury, currently hemodialysis dependent due to ATN 02/2021 Hyperkalemia, resolved Mineral Bone Disease -Fluid optimization with HD, completed X 4, repeat HD today -Nephrology following, added Aranesp appreciate further recommendations -Continue with Renvela Occlusion of left internal carotid artery -CTA neck revealed incidental finding of suspected complete occlusion of left internal carotid artery. -Vascular surgery consulted, appreciate further recommendations -Carotid Dopplers completed revealing left ICA occluded at the bifurcation with retrograde right vertebral artery flow and less than 50% stenosis of the right carotid. -Patient started on Plavix and Eliquis resumed at this time. Acute on chronic respiratory failure with hypoxia secondary to current COVID-19 virus infection with COPD -Oxygenation to be administered and titrated as needed to maintain SPO2 equal to or greater than 90% -Telemetry monitoring. -Continue trending inflammatory markers -Encourage Incentive Spirometry 10-15x hourly while awake -Steroids: Decadron 6 mg daily -Continue vitamin C, Vitamin D, and Zinc. -Pulmonology following, appreciate further recommendations. -DVT prophylaxis with Eliquis -Strict Droplet plus Contact precautions Insulin-dependent Diabetes mellitus type 2 -Continue with glycemic protocol and NovoLog sliding scale -Appears to only be on sliding scale insulin at baseline Paroxysmal atrial fibrillation/flutter -Resumed Eliquis 04/28/21 -Continue with amiodarone, metoprolol and likely resume Eliquis once cleared. Stage 2 Pressure Ulcers, POA - frequent turns - off loading - barrier cream Other chronic medical conditions include: GERD HLD Hypothyroidism HX CVA HX of Lap Krystal 03/12 with DIALLO and HD Hospice plans to re-eval patient and meet with patient and family on thursday. DVT prophylaxis: Jimmie Discussed with: Patient and RN Anticipated discharge: Clinical course to determine Anticipated discharge place: return to [facility] A total of 40 minutes was spent on the care of this complex patient more than 50% of the time was spent in counseling and care coordination. Objective - Vital Signs Vital signs: Vital Signs Temp 98.0 F 04/28/21 04:00 Pulse 78 04/28/21 04:00 Resp 18 04/28/21 04:00 BP 95/64 04/28/21 04:00 Pulse Ox 93 L 04/28/21 04:00 Intake & Output 04/27/21 04/28/21 04/28/21 18:59 06:59 18:59 Intake Total 540 Output Total 1000 0 Balance -460 0 Weight 64.5 kg Intake: IV 10 Invasive Line 1 10 Oral 230 Hemodialysis 300 Output: Stool 0 Hemodialysis 1000 Other: Voiding Method Diaper Diaper Incontinent Incontinent # Voids 0 # Bowel Movements 1 0 - Labs CBC & Chem 7: 04/28/21 08:00 04/28/21 08:00 Labs: Abnormal Lab Results - Last 24 Hours (Table) 04/27/21 04/27/21 04/27/21 Range/Units 07:47 07:47 07:50 WBC 12.4 H (3.8-10.6) k/uL RBC 3.26 L (3.80-5.40) m/uL Hgb 9.8 L (11.4-16.0) gm/dL Hct 32.1 L (34.0-46.0) % MCHC 30.6 L (31.0-37.0) g/dL RDW 16.9 H (11.5-15.5) % Plt Count 104 L (150-450) k/uL APTT 19.6 L (22.0-30.0) sec Chloride 110 H (98-107) mmol/L Carbon Dioxide 21 L (22-30) mmol/L BUN 30 H (7-17) mg/dL Creatinine 4.05 H (0.52-1.04) mg/dL Glucose 187 H (74-99) mg/dL POC Glucose (mg/dL) (75-99) mg/dL Calcium 8.2 L (8.4-10.2) mg/dL Phosphorus 5.4 H (2.5-4.5) mg/dL 04/27/21 04/27/21 04/27/21 Range/Units 11:48 16:46 20:19 WBC (3.8-10.6) k/uL RBC (3.80-5.40) m/uL Hgb (11.4-16.0) gm/dL Hct (34.0-46.0) % MCHC (31.0-37.0) g/dL RDW (11.5-15.5) % Plt Count (150-450) k/uL APTT (22.0-30.0) sec Chloride (98-107) mmol/L Carbon Dioxide (22-30) mmol/L BUN (7-17) mg/dL Creatinine (0.52-1.04) mg/dL Glucose (74-99) mg/dL POC Glucose (mg/dL) 110 H 220 H 180 H (75-99) mg/dL Calcium (8.4-10.2) mg/dL Phosphorus (2.5-4.5) mg/dL 04/28/21 Range/Units 05:50 WBC (3.8-10.6) k/uL RBC (3.80-5.40) m/uL Hgb (11.4-16.0) gm/dL Hct (34.0-46.0) % MCHC (31.0-37.0) g/dL RDW (11.5-15.5) % Plt Count (150-450) k/uL APTT (22.0-30.0) sec Chloride (98-107) mmol/L Carbon Dioxide (22-30) mmol/L BUN (7-17) mg/dL Creatinine (0.52-1.04) mg/dL Glucose (74-99) mg/dL POC Glucose (mg/dL) 148 H (75-99) mg/dL Calcium (8.4-10.2) mg/dL Phosphorus (2.5-4.5) mg/dL Microbiology - Last 24 Hours (Table) 04/22/21 18:15 Blood Culture - Preliminary Blood No Growth after 120 hours 04/22/21 18:00 Blood Culture - Preliminary Blood No Growth after 120 hours <Jennifer Barakat - Last Filed: 02/06/22 17:30> Subjective I reviewed the documentation as provided by the JOSSY above, who is the original author of this note. I agree with the documented assessment and plan, with the following changes: none Objective - Vital Signs Vital signs: Vital Signs Temp 97.6 F 04/28/21 08:42 Pulse 88 04/28/21 13:15 Resp 22 04/28/21 13:15 BP 103/59 04/28/21 13:15 Pulse Ox 91 L 04/28/21 13:15 Intake & Output 04/27/21 04/28/21 04/28/21 18:59 06:59 18:59 Intake Total 540 240 Output Total 1000 0 Balance -460 0 240 Weight 64.5 kg Intake: IV 10 20 Invasive Line 1 10 Invasive Line 3 20 Oral 230 220 Hemodialysis 300 Output: Stool 0 Hemodialysis 1000 Other: Voiding Method Diaper Diaper Diaper Incontinent Incontinent Incontinent # Voids 0 # Bowel Movements 1 0 1 - Labs CBC & Chem 7: 04/28/21 08:00 04/28/21 08:00 Labs: Abnormal Lab Results - Last 24 Hours (Table) 04/27/21 04/28/21 04/28/21 Range/Units 20:19 05:50 08:00 WBC 13.6 H (3.8-10.6) k/uL RBC 3.19 L (3.80-5.40) m/uL Hgb 9.7 L (11.4-16.0) gm/dL Hct 31.5 L (34.0-46.0) % MCHC 30.8 L (31.0-37.0) g/dL RDW 17.1 H (11.5-15.5) % Plt Count 107 L (150-450) k/uL D-Dimer (<0.60) mg/L FEU Carbon Dioxide (22-30) mmol/L BUN (7-17) mg/dL Creatinine (0.52-1.04) mg/dL Glucose (74-99) mg/dL POC Glucose (mg/dL) 180 H 148 H (75-99) mg/dL Calcium (8.4-10.2) mg/dL Lactate Dehydrogenase (313-618) U/L C-Reactive Protein (<1.0) mg/dL Total Protein (6.3-8.2) g/dL Albumin (3.5-5.0) g/dL 04/28/21 04/28/21 04/28/21 Range/Units 08:00 08:00 11:41 WBC (3.8-10.6) k/uL RBC (3.80-5.40) m/uL Hgb (11.4-16.0) gm/dL Hct (34.0-46.0) % MCHC (31.0-37.0) g/dL RDW (11.5-15.5) % Plt Count (150-450) k/uL D-Dimer 6.93 H (<0.60) mg/L FEU Carbon Dioxide 20 L (22-30) mmol/L BUN 29 H (7-17) mg/dL Creatinine 3.92 H (0.52-1.04) mg/dL Glucose 128 H (74-99) mg/dL POC Glucose (mg/dL) 139 H (75-99) mg/dL Calcium 8.0 L (8.4-10.2) mg/dL Lactate Dehydrogenase 1147 H (313-618) U/L C-Reactive Protein 2.2 H (<1.0) mg/dL Total Protein 5.4 L (6.3-8.2) g/dL Albumin 2.8 L (3.5-5.0) g/dL 04/28/21 Range/Units 16:10 WBC (3.8-10.6) k/uL RBC (3.80-5.40) m/uL Hgb (11.4-16.0) gm/dL Hct (34.0-46.0) % MCHC (31.0-37.0) g/dL RDW (11.5-15.5) % Plt Count (150-450) k/uL D-Dimer (<0.60) mg/L FEU Carbon Dioxide (22-30) mmol/L BUN (7-17) mg/dL Creatinine (0.52-1.04) mg/dL Glucose (74-99) mg/dL POC Glucose (mg/dL) 176 H (75-99) mg/dL Calcium (8.4-10.2) mg/dL Lactate Dehydrogenase (313-618) U/L C-Reactive Protein (<1.0) mg/dL Total Protein (6.3-8.2) g/dL Albumin (3.5-5.0) g/dL Microbiology - Last 24 Hours (Table) 04/22/21 18:15 Blood Culture - Preliminary Blood No Growth after 120 hours 04/22/21 18:00 Blood Culture - Preliminary Blood No Growth after 120 hours
--- NOTE | 2021-04-28 11:40 | P.GSCN ---
History of Present Illness Consult date: 04/28/21 Reason for Consult: Carotid stenosis. History of present illness: Patient is an 85-year-old female who was admitted to the hospital for medical treatment regarding congestive heart failure/fluid overload. During hospital stay the patient did undergo carotid duplex and eventually a CTA of her carotid arteries. This demonstrates less than 50% degree of stenosis in the right ICA and a totally occluded left ICA. Upon conversing without patient she denies any known cerebrovascular event Past Medical History Past Medical History: Atrial Fibrillation, COPD, Diabetes Mellitus, GERD/Reflux, Hyperlipidemia Additional Past Medical History / Comment(s): End stage renal disease currently on dialysis 3 times a week, COPD, chronic pressure sore failure, intermediate resident History of Any Multi-Drug Resistant Organisms: None Reported Past Anesthesia/Blood Transfusion Reactions: No Reported Reaction Past Psychological History: No Psychological Hx Reported Smoking Status: Never smoker Medications and Allergies Home Medications Medication Instructions Recorded Confirmed Type Amiodarone [Cordarone] 200 mg PO DAILY@0600 04/07/21 04/22/21 History Apixaban [Eliquis] 2.5 mg PO BID@0600,1700 04/07/21 04/22/21 History Atorvastatin [Lipitor] 10 mg PO HS@2100 04/07/21 04/22/21 History Calcium Carbonate [Tums] 500 mg PO BID@0800,1700 04/07/21 04/22/21 History Famotidine [Pepcid] 20 mg PO DAILY@0600 04/07/21 04/22/21 History Fluticasone/Vilanterol [Breo 1 puff INHALATION RT-DAILY@0600 04/07/21 04/22/21 History Ellipta 200-25 Mcg Inhaler] HYDROcodone/APAP 5-325MG [Cato 1 tab PO QID PRN 04/07/21 04/22/21 History 5-325] INSULIN ASPART (NovoLOG) [NovoLOG See Protocol SQ ACHS 04/07/21 04/22/21 History (formulary)] Ipratropium-Albuterol Nebulize 3 ml INHALATION RT-QID PRN 04/07/21 04/22/21 History [Duoneb 0.5 mg-3 mg/3 ml Soln] Levothyroxine Sodium [Levoxyl] 88 mcg PO DAILY@0600 04/07/21 04/22/21 History Metoprolol Tartrate [Lopressor] 25 mg PO BID@0800,1700 04/07/21 04/22/21 History Mirtazapine 7.5 mg PO HS@2100 04/07/21 04/22/21 History Sevelamer [Renvela] 800 mg PO TID@0800,1200,1700 04/07/21 04/22/21 History dronabinoL [Marinol] 2.5 mg PO BID@0600,1700 04/07/21 04/22/21 History Cefdinir 300 mg PO BID@0600,2100 04/22/21 04/22/21 History Liquacel 30 ml PO BID@1200,1700 04/22/21 04/22/21 History Menthol-Zinc Oxide Oint 1 applic TOPICAL BID 04/22/21 04/22/21 History [Calmoseptine Oint] bisacodyL [Dulcolax] 10 mg RECTAL DAILY PRN 04/22/21 04/22/21 History dexAMETHasone ORAL [Hexadrol] 6 mg PO DAILY@0600 04/22/21 04/22/21 History Allergies Allergy/AdvReac Type Severity Reaction Status Date / Time No Known Allergies Allergy Verified 04/22/21 18:19 Surgical - Exam Osteopathic Statement: *. No significant issues noted on an osteopathic structural exam other than those noted in the History and Physical/Consult. Vital Signs Temp Pulse Resp BP Pulse Ox 98.9 F 80 20 110/60 100 04/22/21 15:51 04/22/21 15:51 04/22/21 15:51 04/22/21 15:51 04/22/21 15:51 - General well developed, well nourished, no distress - Eyes normal ocular movement, no icteric - ENT no hearing loss, no congestion - Neck no masses, trachea midline - Respiratory normal respiratory effort, clear to auscultation - Abdomen Abdomen: soft, non tender, no guarding, no rigid, no rebound - Integumentary no rash, no abnormal pigmentation - Neurologic no disoriented, no combative - Psychiatric oriented to time, oriented to person, oriented to place, speech is normal, memory intact Cranial nerves II through XII are grossly intact. Equal motor strength in the upper and lower extremities is noted bilaterally. Femoral pulses are noted bilaterally while the popliteal and pedal pulses are absent bilaterally. Results - Labs 04/28/21 08:00 04/28/21 08:00 Abnormal Lab Results - Last 24 Hours (Table) 04/27/21 04/27/21 04/27/21 Range/Units 11:48 16:46 20:19 WBC (3.8-10.6) k/uL RBC (3.80-5.40) m/uL Hgb (11.4-16.0) gm/dL Hct (34.0-46.0) % MCHC (31.0-37.0) g/dL RDW (11.5-15.5) % Plt Count (150-450) k/uL D-Dimer (<0.60) mg/L FEU Carbon Dioxide (22-30) mmol/L BUN (7-17) mg/dL Creatinine (0.52-1.04) mg/dL Glucose (74-99) mg/dL POC Glucose (mg/dL) 110 H 220 H 180 H (75-99) mg/dL Calcium (8.4-10.2) mg/dL Lactate Dehydrogenase (313-618) U/L C-Reactive Protein (<1.0) mg/dL Total Protein (6.3-8.2) g/dL Albumin (3.5-5.0) g/dL 04/28/21 04/28/21 04/28/21 Range/Units 05:50 08:00 08:00 WBC 13.6 H (3.8-10.6) k/uL RBC 3.19 L (3.80-5.40) m/uL Hgb 9.7 L (11.4-16.0) gm/dL Hct 31.5 L (34.0-46.0) % MCHC 30.8 L (31.0-37.0) g/dL RDW 17.1 H (11.5-15.5) % Plt Count 107 L (150-450) k/uL D-Dimer 6.93 H (<0.60) mg/L FEU Carbon Dioxide (22-30) mmol/L BUN (7-17) mg/dL Creatinine (0.52-1.04) mg/dL Glucose (74-99) mg/dL POC Glucose (mg/dL) 148 H (75-99) mg/dL Calcium (8.4-10.2) mg/dL Lactate Dehydrogenase (313-618) U/L C-Reactive Protein (<1.0) mg/dL Total Protein (6.3-8.2) g/dL Albumin (3.5-5.0) g/dL 04/28/21 Range/Units 08:00 WBC (3.8-10.6) k/uL RBC (3.80-5.40) m/uL Hgb (11.4-16.0) gm/dL Hct (34.0-46.0) % MCHC (31.0-37.0) g/dL RDW (11.5-15.5) % Plt Count (150-450) k/uL D-Dimer (<0.60) mg/L FEU Carbon Dioxide 20 L (22-30) mmol/L BUN 29 H (7-17) mg/dL Creatinine 3.92 H (0.52-1.04) mg/dL Glucose 128 H (74-99) mg/dL POC Glucose (mg/dL) (75-99) mg/dL Calcium 8.0 L (8.4-10.2) mg/dL Lactate Dehydrogenase 1147 H (313-618) U/L C-Reactive Protein 2.2 H (<1.0) mg/dL Total Protein 5.4 L (6.3-8.2) g/dL Albumin 2.8 L (3.5-5.0) g/dL Microbiology - Last 24 Hours (Table) 04/22/21 18:15 Blood Culture - Preliminary Blood No Growth after 120 hours 04/22/21 18:00 Blood Culture - Preliminary Blood No Growth after 120 hours Diabetes panel 04/28/21 Range/Units 08:00 Sodium 137 (137-145) mmol/L Potassium 4.3 (3.5-5.1) mmol/L Chloride 106 (98-107) mmol/L Carbon Dioxide 20 L (22-30) mmol/L BUN 29 H (7-17) mg/dL Creatinine 3.92 H (0.52-1.04) mg/dL Glucose 128 H (74-99) mg/dL Calcium 8.0 L (8.4-10.2) mg/dL AST 22 (14-36) U/L ALT 20 (4-34) U/L Alkaline Phosphatase 82 (38-126) U/L Total Protein 5.4 L (6.3-8.2) g/dL Albumin 2.8 L (3.5-5.0) g/dL Calcium panel 04/28/21 Range/Units 08:00 Calcium 8.0 L (8.4-10.2) mg/dL Albumin 2.8 L (3.5-5.0) g/dL Pituitary panel 04/28/21 Range/Units 08:00 Sodium 137 (137-145) mmol/L Potassium 4.3 (3.5-5.1) mmol/L Chloride 106 (98-107) mmol/L Carbon Dioxide 20 L (22-30) mmol/L BUN 29 H (7-17) mg/dL Creatinine 3.92 H (0.52-1.04) mg/dL Glucose 128 H (74-99) mg/dL Calcium 8.0 L (8.4-10.2) mg/dL Adrenal panel 04/28/21 Range/Units 08:00 Sodium 137 (137-145) mmol/L Potassium 4.3 (3.5-5.1) mmol/L Chloride 106 (98-107) mmol/L Carbon Dioxide 20 L (22-30) mmol/L BUN 29 H (7-17) mg/dL Creatinine 3.92 H (0.52-1.04) mg/dL Glucose 128 H (74-99) mg/dL Calcium 8.0 L (8.4-10.2) mg/dL Total Bilirubin 0.6 (0.2-1.3) mg/dL AST 22 (14-36) U/L ALT 20 (4-34) U/L Alkaline Phosphatase 82 (38-126) U/L Total Protein 5.4 L (6.3-8.2) g/dL Albumin 2.8 L (3.5-5.0) g/dL Assessment and Plan Assessment: #1: Totally occluded left ICA. #2: Nonhealing medically severe stenosis right ICA. #3: Multiple medical problems including dialysis-dependent renal failure. Plan: The patient requires no surgical intervention at this time. I agree with medical management. Would recommend to 6 month carotid duplex studies as the left side is totally occluded. Agree with medical therapy. We will reevaluate at your request. Time with Patient: Greater than 30
[2021-04-28 11:42] LABS: Glucose,Whole Blood 139 mg/dL (75-99)
[2021-04-28] MEDS: MIDODRINE 5 MG TAB PO SCH ×2 (13:08→18:00)
--- NOTE | 2021-04-28 14:05 | P.PN ---
Subjective Progress Note Date: 04/28/21 I was asked to evaluate this patient because of an acute on chronic hypoxic respiratory failure secondary to COVID 19 pneumonia. The patient is known to have incisional disease and the patient on hemodialysis. The patient also known to have COPD, chronic atrial fibrillation, hypertension, hyperlipidemia.. The patient is usually on 3 L of oxygen by nasal cannula. The patient is a [facility] resident. The patient was noted to be more short of breath. Note that the patient was hospitalized on 04/07/2021 for respiratory failure and at that time the patient was also treated for volume overload and possible infection the patient was given IV antibiotics and BiPAP for respiratory support. Note that initial over 19 testing on 04/07/2021 was negative. Subsequent testing a 04/12/2021, 04/15/2021 and 04/22/2021 came back all positive. Note that the patient's vaccination status is unknown. She was having issues with oxygenation and her oxygen flow was brought up to 5 L per minute nasal cannula. She undergoes dialysis 3 times a week and her dialysis on Thursday was cut short due to inadequate flow from the dialysis catheter. Based on that, the patient was brought into the hospital for further evaluation. The patient reported some chronic nonproductive cough. She denies having any other active complaints. No reported fever. No reported chills. No nausea. No vomiting. No abdominal pain. No chest pain. Chest x-ray was done in the emergency department was consistent with fluid overload. The patient was sent and was at 15.1 with a hemoglobin of 10 and a platelet count of 116. The sodium was 135 with a potassium level of 6.2 with a chloride of 11 her bicarb level XXI. BUN was 100 and a creatinine was at 9.5. The ferritin level was 1498. The LDH level was 1020 and a CRP level was at 1.8. Total protein was 5.6. LFTs were essentially within normal limits. Calcium level is at 8.2. Coagulation profile was essentially within normal limits. Underwent hemodialysis yesterday and the repeat electrolytes show a sodium level of 131, potassium level is down to 5.2 and the creatinine is down to 6.46 with a BUN of 65. Morning blood sugar is at 89. Overnight, the oxygenation also got more impaired and the patient has been brought up to 10 L of Oxymizer nasal cannula. She is on long-term anticoagulant with Eliquis 2.5 mg twice a day. She is also started on Decadron 6 mg IV every 24 hours. Outpatient medications have been ordered resume. 04/24/2021, the patient is being seen for a follow-up. The patient continues to BE short of breath and 80 disease of oxygen by nasal cannula. At time of my evaluation, the pulse ox was as low as 84%. Based on that, the patient was placed on 12 L of oxygen by nasal cannula with titrate FiO2 to maintain saturation above 90%. The patient underwent hemodialysis yesterday. A total of 2 L of ultrafiltration was done. Repeat chest x-ray showed persistent bilateral pulmonary interstitial infiltrates which could be fluid versus COVID 19 related limited cough and congestion. She is afebrile. Pulmonary embolism was suspected by the hospitalist and the patient was started on IV heparin. Those being adjusted based on underlying PTT. The patient's white cell count is at 20.4 with a hemoglobin of 10.5 and a platelet count of 168. On today's evaluation the sodium is 130 with a potassium level of 4.3 and a BUN of 43 with a creatinine of 5.18. I discussed the case with the primary care team and nephrology. The patient is going to have another session of hemodialysis today. The Doppler of the lower extremity was done and it was negative for DVT. 04/25/2021, patient is doing poorly.she is still short of breath. She remains on 15 L of oxygen high nasalplan the patient's breathing continues to be labored for now.the patient declined having dialysis yesterday. Furthermore, she had swelling of the tongue in addition to a hematoma forming in the base of the tongue that was quite swollen after she bit her tongue. No active bleeding at this point in time. IV heparin has been discontinued.the patient is being considered for hospice care. To 40,022, patient is being seen for a follow-up. The patient seems to have agreed to undergo hemodialysis today. The patient remains on 15 L about 2 by nasal cannula. Pulse ox 90%. Her overall respiratory status is unchanged compared to yesterday. Her breathing is labored. White cell count 11.8 with hemoglobin of 0.6, BUN is a 48 with a creatinine of 6.35. Blood sugars at 238. Blood cultures of been negative. The patient had signs of volume overload and the patient improved initially with hemodialysis ultrafiltration. Nevertheless, oxidation remains unchanged and the patient continues to be hypoxic. As such, we'll believe that her hypoxic respiratory failure is essentially due to progression of Covid 19 related pneumonia. Pneumonia. No interval drop in hemoglobin. The patient remains on Decadron 6 mg IV every 12 hours. The patient is also on group home anticaogulation on Eliquis and this was stopped due to tongue hematoma 04/27/2021, patient is postoperative day of the chest and the neck. No evidence of any pulmonary embolism. Some chronic inflammatory and chronic changes in lung bases noted. There is some background emphysema and chronic fibrotic changes and small left-sided pleural effusion. Patient underwent hemodialysis yesterday. Another session of hemodialysis being done today post CT angiogram. Meanwhile, CAT scan of the neck not also acute abnormalities. The patient is currently feeling better. She is on 12 L of oxygen by nasal cannula. She is on Decadron 6 mg IV every 12 hours. No worsening shortness of breath. The tongue hematoma is unchanged. Neck hematoma is also unchanged. Afebrile. No altered mentation. Considering hospice care still. 04/28/2021, the patient remains on 12 L of oxygen by nasal cannula. Underwent hemodialysis yesterday. No worsening shortness of breath. He remains on Decadron. She is taking Decadron 6 mg IV every 12 hours. No worsening shortness of breath. No altered mentation. Resting comfortably in bed. He has agreed to undergo dialysis. It seems that hospice is off the table for the time being. The final decision has not been done. Hematoma of the tongue is stable. Ecchymosis of the neck is also stable. Objective - Vital Signs Vital signs: Vital Signs Temp 97.6 F 04/28/21 08:42 Pulse 88 04/28/21 13:15 Resp 22 04/28/21 13:15 BP 103/59 04/28/21 13:15 Pulse Ox 91 L 04/28/21 13:15 Intake & Output 04/27/21 04/28/21 04/28/21 18:59 06:59 18:59 Intake Total 540 240 Output Total 1000 0 Balance -460 0 240 Weight 64.5 kg Intake: IV 10 20 Invasive Line 1 10 Invasive Line 3 20 Oral 230 220 Hemodialysis 300 Output: Stool 0 Hemodialysis 1000 Other: Voiding Method Diaper Diaper Diaper Incontinent Incontinent Incontinent # Voids 0 # Bowel Movements 1 0 1 - Exam GENERAL EXAM: Alert, pleasant, 85-year-old white female on 12 L of oxygen with pulse ox of 93%, symptomatic bunions of the bed, breathing comfortably, comfortable in no apparent distress. HEAD: Normocephalic/atraumatic. EYES: Normal reaction of pupils, equal size. Conjunctiva pink, sclera white. NOSE: Clear with pink turbinates. THROAT: No erythema or exudates.the patient had a swollen tongue which is also ecchymotic. The patient also has area of skin ecchymosis under her chin and occupying the anterior neck area. NECK: No masses, no JVD, no thyroid enlargement, no adenopathy. CHEST: No chest wall deformity. Symmetrical expansion. Right upper chest X-ray hemodialysis catheter is in place, there is a permacath in the right IJ. LUNGS: Equal air entry with no crackles, wheeze, rhonchi or dullness. A few bibasilar crackles present CVS: Regular rate and rhythm, normal S1 and S2, no gallops, no murmurs, no rubs ABDOMEN: Soft, nontender. No hepatosplenomegaly, normal bowel sounds, no guarding or rigidity. EXTREMITIES: No clubbing, no edema, no cyanosis, 2+ pulses and upper and lower extremities. MUSCULOSKELETAL: Muscle strength and tone normal. SPINE: No scoliosis or deformity SKIN: No rashes CENTRAL NERVOUS SYSTEM: Alert and oriented -3. No focal deficits, tone is normal in all 4 extremities. PSYCHIATRIC: Alert and oriented -3. Appropriate affect. Intact judgment and insight. - Labs CBC & Chem 7: 04/28/21 08:00 04/28/21 08:00 Labs: Abnormal Lab Results - Last 24 Hours (Table) 04/27/21 04/27/21 04/28/21 Range/Units 16:46 20:19 05:50 WBC (3.8-10.6) k/uL RBC (3.80-5.40) m/uL Hgb (11.4-16.0) gm/dL Hct (34.0-46.0) % MCHC (31.0-37.0) g/dL RDW (11.5-15.5) % Plt Count (150-450) k/uL D-Dimer (<0.60) mg/L FEU Carbon Dioxide (22-30) mmol/L BUN (7-17) mg/dL Creatinine (0.52-1.04) mg/dL Glucose (74-99) mg/dL POC Glucose (mg/dL) 220 H 180 H 148 H (75-99) mg/dL Calcium (8.4-10.2) mg/dL Lactate Dehydrogenase (313-618) U/L C-Reactive Protein (<1.0) mg/dL Total Protein (6.3-8.2) g/dL Albumin (3.5-5.0) g/dL 04/28/21 04/28/21 04/28/21 Range/Units 08:00 08:00 08:00 WBC 13.6 H (3.8-10.6) k/uL RBC 3.19 L (3.80-5.40) m/uL Hgb 9.7 L (11.4-16.0) gm/dL Hct 31.5 L (34.0-46.0) % MCHC 30.8 L (31.0-37.0) g/dL RDW 17.1 H (11.5-15.5) % Plt Count 107 L (150-450) k/uL D-Dimer 6.93 H (<0.60) mg/L FEU Carbon Dioxide 20 L (22-30) mmol/L BUN 29 H (7-17) mg/dL Creatinine 3.92 H (0.52-1.04) mg/dL Glucose 128 H (74-99) mg/dL POC Glucose (mg/dL) (75-99) mg/dL Calcium 8.0 L (8.4-10.2) mg/dL Lactate Dehydrogenase 1147 H (313-618) U/L C-Reactive Protein 2.2 H (<1.0) mg/dL Total Protein 5.4 L (6.3-8.2) g/dL Albumin 2.8 L (3.5-5.0) g/dL 04/28/21 Range/Units 11:41 WBC (3.8-10.6) k/uL RBC (3.80-5.40) m/uL Hgb (11.4-16.0) gm/dL Hct (34.0-46.0) % MCHC (31.0-37.0) g/dL RDW (11.5-15.5) % Plt Count (150-450) k/uL D-Dimer (<0.60) mg/L FEU Carbon Dioxide (22-30) mmol/L BUN (7-17) mg/dL Creatinine (0.52-1.04) mg/dL Glucose (74-99) mg/dL POC Glucose (mg/dL) 139 H (75-99) mg/dL Calcium (8.4-10.2) mg/dL Lactate Dehydrogenase (313-618) U/L C-Reactive Protein (<1.0) mg/dL Total Protein (6.3-8.2) g/dL Albumin (3.5-5.0) g/dL Microbiology - Last 24 Hours (Table) 04/22/21 18:15 Blood Culture - Preliminary Blood No Growth after 120 hours 04/22/21 18:00 Blood Culture - Preliminary Blood No Growth after 120 hours Assessment and Plan Plan: 1. Acute hypoxic respiratory failure , most likely secondary to fluid overload. Chest x-ray showing pulmonary vessel congestion and small effusion the left lung base. The patient was treated for COVID 19 based on an earlier hospitalization. This was an incidental finding. Please refer to the admission that occurred on 04/14/2021. Noted the patient underwent 2 sessions of hemodialysis during this current admission.Nevertheless, the patient continued to be hypoxic. Currently on 12 L O2 nasal cannula and condition is stable. No interval worsening. Remains on Decadron. 2. Newly diagnosed COVID-19 infection, patient is asymptomatic, this is a incidental finding as part of the preadmission requirement for ECF placement. Note that patient had a negative COVID-19 PCR on admission on 04/07/2021. Her vaccination status is unclear, patient thinks she is vaccinated, however she is a poor historian she was placed back on Decadron 6 mg by mouth twice a day. CT angiogram showed some chronic fibrotic changes and emphysema in the background along with some chronic inflammatory changes. No evidence of any pulmonary embolism. 3. chronic CHF with diastolic dysfunction 4. End-stage renal disease on hemodialysis, this was recently initiated after patient sustained acute kidney injury in February following her cholecystectomy. She has a right subclavian temporary hemodialysis catheter in place, she is being dialyzed on Thursday schedule 5. Recent cholecystectomy on 03/08/2021 at [facility] 6. Dementia 7. Chronic A. fib on Eliquis 8. Diabetes mellitus type 2 9. COPD 10. Former smoker, quit smoking 40 years ago, does carry [id number] smoking history 11.Valvular heart disease with mild aortic stenosis and regurgitation, moderate mitral regurgitation, moderate to severe tricuspid regurg and severe pulmonary hypertension with right-sided pressure of 71.4 mmHg 12. CVA 13. Hypertension 14 hematoma of the tongue, currently off Eliquis Plan Repeat chest x-ray in a.m. Wean down FiO2 to maintain saturation above 90%, currently on 12 L O2 Continue HD, undergoing hemodialysis was done yesterday Wean down the FiO2 to maintain a saturation above 90% CT of the chest was noted CT of the neck was noted Consider hospice care.. Final decision has not been done. patient has a DNR/DNI CODE STATUS.
[2021-04-28 16:12] LABS: Glucose,Whole Blood 176 mg/dL (75-99)
[2021-04-28 20:11] LABS: Glucose,Whole Blood 253 mg/dL (75-99)
[2021-04-28] MEDS: ATORVASTATIN 10 MG TAB PO SCH (20:22)
[2021-04-29] MEDS: LEVOTHYROXINE 88 MCG TAB PO SCH (06:02)
[2021-04-29 06:03] LABS: Glucose,Whole Blood 124 mg/dL (75-99)
[2021-04-29] MEDS: INSULIN ASPART (NovoLOG) 100 UNIT/ML VIAL SQ SCH ×4 (06:03→22:24)
[2021-04-29] MEDS: AMIODARONE 200 MG TAB PO SCH (06:03)
[2021-04-29] MEDS: MIDODRINE 5 MG TAB PO SCH ×3 (06:03→17:28)
[2021-04-29 08:22] LABS: Anisocytosis Slight; HCT 31.9 % (34.0-46.0); HGB 10.1 gm/dL (11.4-16.0); Hypochromasia Moderate; MCH 30.4 pg (25.0-35.0); MCHC 31.7 g/dL (31.0-37.0); MCV 96.2 fL (80.0-100.0); Macrocytosis Slight; Mean Platelet Volume 8.7; Platelet Count 125 k/uL (150-450); RBC 3.32 m/uL (3.80-5.40); RDW 17.3 % (11.5-15.5); WBC 16.7 k/uL (3.8-10.6)
[2021-04-29 08:34] LABS: Albumin 3.1 g/dL (3.5-5.0); Calcium 8.3 mg/dL (8.4-10.2); Magnesium 2.4 mg/dL (1.6-2.3); Total Bilirubin 0.7 mg/dL (0.2-1.3); Total Protein 5.7 g/dL (6.3-8.2)
[2021-04-29] MEDS: TIOTROPIUM 2.5 MCG INHALER INHALATION PRN (08:37)
[2021-04-29] MEDS: SYMBICORT 160-4.5 MCG INHALER INHALATION SCH ×2 (08:37→20:32)
[2021-04-29] MEDS: ASCORBIC ACID 500 MG TAB PO SCH (09:09)
[2021-04-29] MEDS: CHOLECALCIFEROL 125 MCG (5000 IU) TABLET PO SCH (09:09)
[2021-04-29] MEDS: SEVELAMER 800 MG TAB PO SCH ×3 (09:09→17:24)
[2021-04-29 11:58] LABS: Glucose,Whole Blood 127 mg/dL (75-99)
[2021-04-29] MEDS: DEXAMETHASONE SOD PHOSPHATE 10 MG/ML 1 ML VIAL IVP SCH ×2 (12:10→22:24)
[2021-04-29] MEDS: METOPROLOL TARTRATE 25 MG TAB PO SCH ×2 (12:10→17:28)
[2021-04-29] MEDS: APIXABAN 2.5 MG TABLET PO SCH ×2 (12:10→22:24)
[2021-04-29] MEDS: CLOPIDOGREL 75 MG TAB PO SCH (12:10)
[2021-04-29] MEDS: FAMOTIDINE 20 MG/2 ML VIAL IV SCH (12:11)
--- NOTE | 2021-04-29 12:53 | P.PN ---
<Kobi Pruitt - Last Filed: 04/29/21 11:31> Subjective Progress Note Date: 04/29/21 Hospital Course: Patient is an 85-year-old female with end-stage renal disease on hemodialysis Thursday//Thursday, atrial fibrillation on Eliquis, hypertension, dyslip idemia, diabetes mellitus type 2, COPD with chronic respiratory failure 3L home O2 dependent and multiple other comorbid conditions. She presented to the hospital secondary to shortness of breath on 04/22/21. She was recently here from 04/07/21-04/18/21 and was diagnised with COVID during that hospital stay. She should have received 10 days f decadron at this point. She had been found to be COVID positive approximately 5 days before admission and was requiring increased oxygenation. She was unable to fully undergo her last hemodialysis treatment secondary to inadequate flow from the catheter. In the ER she underwent an extensive evaluation. Initial chest x-ray demonstrated fluid overload, EKG revealed atrial flutter with variable block at 90, and laboratory analysis was remarkable for a white blood cell count of 18.2, hemoglobin 10.7 (at baseline), platelet count 148 at her baseline, potassium of 6.2, BUN 100, and creatinine 9.56, she was again positive for COVID-19 via nucleic acid testing. Patient underwent emergent hemodialysis. Her O2 sats continued to worsen. A d-dimer was obtained. Elevated at 2.2. Lower extremity venous Dopplers were negative. She was started on a heparin drip with concerns for pulmonary embolism however we delayed initiating a CTA of the chest as they're hoping for renal recovery. She continued to require more oxygen. Case is discussed with pulmonary and nephrology and is felt she may have continued fluid overload. She will undergo another round of dialysis. She bit her tongue on 04/24 and her PTT >200 which resulted in development of significant tongue and neck hematoma. Her heparin drip had already been on hold secondary to elevated PTT and at this time was formally discontinued. She had debated hospice but after discussing with her f dung she reconsidered and decided to resume undergoing hemodialysis and continuing treatment. Patient received dialysis 04/22/21, 04/23/21, 04/24/21, 04/26/21, and 04/27/21 and next Dialysis session is currently planned to be completed 04/29/21. ENT evaluated patient and sent pt for CTA neck and chest. CTA chest was negative for pulmonary emboli. CTA of neck incidentally revealed total occlusion of internal left carotid artery. Consult was placed to vascular surgery and after cleared by ENT for tongue and neck hematoma, patient then placed on Plavix and to resume Eliquis. Vascular surgery evaluated patient, recommending no surgical intervention at this time and agreeing with plan for medication management with Plavix and resumption of Eliquis. Physical Examination: Patient seen and examined at bedside this morning. Her oxygen needs increased overnight and oxygen was turned up to 15 L to maintain SpO2 of 90%. Patient due to undergo dialysis this morning. She reports feeling tired this morning, otherwise denies having any complaints. She met with Brittany tape machine tailer again this morning as per previous request from patient and family, pt declining hospice care at this time and would like to continue undergoing dialysis. Kailey duke and spoke with patient's daughter and updated her on her mother's wishes. Pt reports continued shortness of breath, but otherwise denies having any other complaints at this time including headache, lightheadedness, dizziness, chest pain, palpitations, or any numbness/tingling/weakness in her extremities. Morning labs reviewed and stable. Hemoglobin 10.1, leukocytosis with WBC count of 16.7 thrombocytopenia with platelet count of 125. BUN 45, creatinine 5.63, and GFR of 6 before dialysis. General: non toxic, no distress, appears at stated age Derm: ecchymosis anterior neck hematoma radiating up into left lateral side of neck and jaw, Head:normocephalic, symmetric Eyes: EOMI, no lid lag, anicteric sclera Mouth: no lip lesion, mucus membranes moist, tongue ecchymotic with minimal swelling , able to move and protrude tongue, swallowing without any difficulties and controlling secretions. Cardiovascular: S1S2 reg, no murmur, positive posterior tibial pulses bilaterally, Lungs: Respirations even, regular, and unlabored on 15 L high flow nasal cannula, lungs with crackles bilateral bases and bilateral diffuse expiratory wheezes present, no rhonchi or rales. No Accessory muscle use Abdominal: soft, nontender to palpation, no guarding, no appreciable organomegaly Ext: no gross muscle atrophy, trace edema, no contractures Neuro: CN II-XI grossly intact, no focal neuro deficits Psych: Alert, oriented, appropriate affect Assessment and plan of care: Acute Exacerbation of Diastolic Congestive Heart Failure with EF 50-55% Severe Tricuspid Regurgitation Severe Pulmonary Hypertension -Fluid optimization with HD, completed X 4, repeat HD today -Lopressor -Not chronically on any inhibitor Hematoma tongue and anterior neck -Close monitoring -ENT evaluated, no concerns for intervention at this time recommending patient follow-up in office if needed -CTA neck was completed and negative for suspicious focal fluid collection or hematoma showing patchy opacification of bilateral mastoid air cells an incidental finding of suspected complete occlusion of left internal carotid Acute Kidney Injury, currently hemodialysis dependent due to ATN 02/2021 Hyperkalemia, resolved Mineral Bone Disease -Fluid optimization with HD, completed X 4, repeat HD today -Nephrology following, added Miko appreciate further recommendations -Continue with Renvela Occlusion of left internal carotid artery -CTA neck revealed incidental finding of suspected complete occlusion of left internal carotid artery. -Vascular surgery consulted, appreciate further recommendations -Carotid Dopplers completed revealing left ICA occluded at the bifurcation with retrograde right vertebral artery flow and less than 50% stenosis of the right carotid. -Patient started on Plavix and Eliquis resumed at this time. Acute on chronic respiratory failure with hypoxia secondary to current COVID-19 virus infection with COPD -Oxygenation to be administered and titrated as needed to maintain SPO2 equal to or greater than 90% -Telemetry monitoring. -Continue trending inflammatory markers -Encourage Incentive Spirometry 10-15x hourly while awake -Steroids: Decadron 6 mg daily -Continue vitamin C, Vitamin D, and Zinc. -Pulmonology following, appreciate further recommendations. -DVT prophylaxis with Eliquis -Strict Droplet plus Contact precautions Insulin-dependent Diabetes mellitus type 2 -Continue with glycemic protocol and NovoLog sliding scale -Appears to only be on sliding scale insulin at baseline Paroxysmal atrial fibrillation/flutter -Resumed Eliquis 04/28/21 -Continue with amiodarone, metoprolol and likely resume Eliquis once cleared. Stage 2 Pressure Ulcers, POA -Frequent turns -Off loading -Barrier cream Other chronic medical conditions include: GERD HLD Hypothyroidism HX CVA HX of Lap Krystal 03/12 with DIALLO and HD DVT prophylaxis: Eliquis Discussed with: Patient, RN, and pt's daughter Kait. Anticipated discharge: Clinical course to determine Anticipated discharge place: return to [facility] A total of 40 minutes was spent on the care of this complex patient more than 50% of the time was spent in counseling and care coordination. Objective - Vital Signs Vital signs: Vital Signs Temp 97.6 F 04/29/21 04:00 Pulse 79 04/29/21 04:00 Resp 24 04/29/21 04:00 BP 132/68 04/29/21 04:00 Pulse Ox 91 L 04/29/21 04:00 Intake & Output 04/28/21 04/29/21 04/29/21 18:59 06:59 18:59 Intake Total 240 180 Balance 240 180 Weight 64 kg Intake: IV 20 Invasive Line 3 20 Oral 220 180 Other: Voiding Method Diaper Incontinent # Bowel Movements 1 - Labs CBC & Chem 7: 04/29/21 08:04 04/29/21 08:04 Labs: Abnormal Lab Results - Last 24 Hours (Table) 04/28/21 04/28/21 04/28/21 Range/Units 08:00 08:00 08:00 WBC 13.6 H (3.8-10.6) k/uL RBC 3.19 L (3.80-5.40) m/uL Hgb 9.7 L (11.4-16.0) gm/dL Hct 31.5 L (34.0-46.0) % MCHC 30.8 L (31.0-37.0) g/dL RDW 17.1 H (11.5-15.5) % Plt Count 107 L (150-450) k/uL D-Dimer 6.93 H (<0.60) mg/L FEU Carbon Dioxide 20 L (22-30) mmol/L BUN 29 H (7-17) mg/dL Creatinine 3.92 H (0.52-1.04) mg/dL Glucose 128 H (74-99) mg/dL POC Glucose (mg/dL) (75-99) mg/dL Calcium 8.0 L (8.4-10.2) mg/dL Lactate Dehydrogenase 1147 H (313-618) U/L C-Reactive Protein 2.2 H (<1.0) mg/dL Total Protein 5.4 L (6.3-8.2) g/dL Albumin 2.8 L (3.5-5.0) g/dL 04/28/21 04/28/2104/28/22 Range/Units 11:41 16:10 20:08 WBC (3.8-10.6) k/uL RBC (3.80-5.40) m/uL Hgb (11.4-16.0) gm/dL Hct (34.0-46.0) % MCHC (31.0-37.0) g/dL RDW (11.5-15.5) % Plt Count (150-450) k/uL D-Dimer (<0.60) mg/L FEU Carbon Dioxide (22-30) mmol/L BUN (7-17) mg/dL Creatinine (0.52-1.04) mg/dL Glucose (74-99) mg/dL POC Glucose (mg/dL) 139 H 176 H 253 H (75-99) mg/dL Calcium (8.4-10.2) mg/dL Lactate Dehydrogenase (313-618) U/L C-Reactive Protein (<1.0) mg/dL Total Protein (6.3-8.2) g/dL Albumin (3.5-5.0) g/dL 04/29/21 Range/Units 06:02 WBC (3.8-10.6) k/uL RBC (3.80-5.40) m/uL Hgb (11.4-16.0) gm/dL Hct (34.0-46.0) % MCHC (31.0-37.0) g/dL RDW (11.5-15.5) % Plt Count (150-450) k/uL D-Dimer (<0.60) mg/L FEU Carbon Dioxide (22-30) mmol/L BUN (7-17) mg/dL Creatinine (0.52-1.04) mg/dL Glucose (74-99) mg/dL POC Glucose (mg/dL) 124 H (75-99) mg/dL Calcium (8.4-10.2) mg/dL Lactate Dehydrogenase (313-618) U/L C-Reactive Protein (<1.0) mg/dL Total Protein (6.3-8.2) g/dL Albumin (3.5-5.0) g/dL Microbiology - Last 24 Hours (Table) 04/22/21 18:15 Blood Culture - Final Blood No Growth after 144 hours 04/22/21 18:00 Blood Culture - Final Blood No Growth after 144 hours <Jennifer Barakat - Last Filed: 04/30/21 07:09> Subjective I reviewed the documentation as provided by the JOSSY above, who is the original author of this note. I agree with the documented assessment and plan, with the following changes: none Objective - Vital Signs Vital signs: Vital Signs Temp 97.8 F 04/30/21 00:00 Pulse 89 04/30/21 00:00 Resp 22 04/30/21 00:00 BP 83/46 04/29/21 20:00 Pulse Ox 97 04/30/21 00:00 Intake & Output 04/29/21 04/30/21 04/30/21 18:59 06:59 18:59 Intake Total 0 Output Total 750 Balance -750 0 Intake: Oral 0 Output: Hemodialysis 750 Other: Voiding Method Diaper Incontinent # Bowel Movements 1 - Labs CBC & Chem 7: 04/29/21 08:04 04/29/21 08:04 Labs: Abnormal Lab Results - Last 24 Hours (Table) 04/29/21 04/29/21 04/29/21 Range/Units 08:04 08:04 11:56 WBC 16.7 H (3.8-10.6) k/uL RBC 3.32 L (3.80-5.40) m/uL Hgb 10.1 L (11.4-16.0) gm/dL Hct 31.9 L (34.0-46.0) % RDW 17.3 H (11.5-15.5) % Plt Count 125 L (150-450) k/uL Carbon Dioxide 21 L (22-30) mmol/L BUN 45 H (7-17) mg/dL Creatinine 5.63 H (0.52-1.04) mg/dL Glucose 153 H (74-99) mg/dL POC Glucose (mg/dL) 127 H (75-99) mg/dL Calcium 8.3 L (8.4-10.2) mg/dL Magnesium 2.4 H (1.6-2.3) mg/dL Total Protein 5.7 L (6.3-8.2) g/dL Albumin 3.1 L (3.5-5.0) g/dL 04/29/21 04/29/21 Range/Units 16:38 20:01 WBC (3.8-10.6) k/uL RBC (3.80-5.40) m/uL Hgb (11.4-16.0) gm/dL Hct (34.0-46.0) % RDW (11.5-15.5) % Plt Count (150-450) k/uL Carbon Dioxide (22-30) mmol/L BUN (7-17) mg/dL Creatinine (0.52-1.04) mg/dL Glucose (74-99) mg/dL POC Glucose (mg/dL) 127 H 119 H (75-99) mg/dL Calcium (8.4-10.2) mg/dL Magnesium (1.6-2.3) mg/dL Total Protein (6.3-8.2) g/dL Albumin (3.5-5.0) g/dL
--- NOTE | 2021-04-29 13:11 | P.PN ---
Subjective Principal diagnosis: Patient is seen for follow-up for hemodialysis dependent acute kidney injury. Patient remains oliguric and remains dialysis dependent. She is seen on dialysis today and at this time patient is requesting to disco ntinue dialysis. I have discussed with her and explained to her that if we discontinued renal replacement therapy patient will need to consider hospice. At this time patient states that she is ready to . No significant chest pains or shortness of breath noted. Treatment was stopped about 1 hour 45 minutes into treatment. Blood pressure has been stable slightly on the road lower side with systolic high 80s to 90s Objective - Vital Signs Vital signs: Vital Signs Temp 96.8 F L 04/29/21 09:05 Pulse 84 04/29/21 12:11 Resp 22 04/29/21 12:11 BP 103/68 04/29/21 12:11 Pulse Ox 91 L 04/29/21 12:11 Intake & Output 04/28/21 04/29/21 04/29/21 18:59 06:59 18:59 Intake Total 240 180 Output Total 750 Balance 240 180 -750 Weight 64 kg Intake: IV 20 Invasive Line 3 20 Oral 220 180 Output: Hemodialysis 750 Other: Voiding Method Diaper Diaper Incontinent Incontinent # Bowel Movements 1 1 - Exam Patient is awake comfortable alert and oriented 3. Examination of the heart S1 and S2 Examination of the lungs bilateral breath sounds are heard Abdomen is soft nontender Examination lower extremities shows no evidence of edema WARD SUPERVISOR exam appears to be grossly intact - Labs CBC & Chem 7: 04/29/21 08:04 04/29/21 08:04 Labs: Abnormal Lab Results - Last 24 Hours (Table) 04/28/21 04/28/21 04/29/21 Range/Units 16:10 20:08 06:02 WBC (3.8-10.6) k/uL RBC (3.80-5.40) m/uL Hgb (11.4-16.0) gm/dL Hct (34.0-46.0) % RDW (11.5-15.5) % Plt Count (150-450) k/uL Carbon Dioxide (22-30) mmol/L BUN (7-17) mg/dL Creatinine (0.52-1.04) mg/dL Glucose (74-99) mg/dL POC Glucose (mg/dL) 176 H 253 H 124 H (75-99) mg/dL Calcium (8.4-10.2) mg/dL Magnesium (1.6-2.3) mg/dL Total Protein (6.3-8.2) g/dL Albumin (3.5-5.0) g/dL 04/29/21 04/29/21 04/29/21 Range/Units 08:04 08:04 11:56 WBC 16.7 H (3.8-10.6) k/uL RBC 3.32 L (3.80-5.40) m/uL Hgb 10.1 L (11.4-16.0) gm/dL Hct 31.9 L (34.0-46.0) % RDW 17.3 H (11.5-15.5) % Plt Count 125 L (150-450) k/uL Carbon Dioxide 21 L (22-30) mmol/L BUN 45 H (7-17) mg/dL Creatinine 5.63 H (0.52-1.04) mg/dL Glucose 153 H (74-99) mg/dL POC Glucose (mg/dL) 127 H (75-99) mg/dL Calcium 8.3 L (8.4-10.2) mg/dL Magnesium 2.4 H (1.6-2.3) mg/dL Total Protein 5.7 L (6.3-8.2) g/dL Albumin 3.1 L (3.5-5.0) g/dL Microbiology - Last 24 Hours (Table) 04/22/21 18:15 Blood Culture - Final Blood No Growth after 144 hours 04/22/21 18:00 Blood Culture - Final Blood No Growth after 144 hours Assessment and Plan Assessment: 1. End-stage renal disease on hemodialysis on a Thursday schedule it this was mostly acute kidney injury which has not recovered and patient remains oliguric. Dialysis was started in February 2021. Patient is currently refusing to continue with renal replacement therapy. We'll discuss with primary care team as well. 2. Fluid overload currently improved 3. CK D stage III B prior to this episode of acute kidney injury about 2 months ago 4. Acute hypoxic respiratory failure secondary to volume overload and possibly related to cope with infection as well 5. CK D mineral bone disorder 6. Acute on chronic diastolic CHF with moderate to severe tricuspid regurgitation severe pulmonary hypertension. Patient has refused cardiac catheterization. 7. 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 I will discontinue her treatment for now as patient absolutely does not want to continue dialysis. She understands that she will need to consider hospice care if she stops dialysis.
[2021-04-29 16:40] LABS: Glucose,Whole Blood 127 mg/dL (75-99)
[2021-04-29 20:04] LABS: Glucose,Whole Blood 119 mg/dL (75-99)
[2021-04-29 21:36] VITALS: BP 83/46
[2021-04-29] MEDS: ATORVASTATIN 10 MG TAB PO SCH (22:24)
[2021-04-30 00:23] VITALS: PULSE 89; RESP 22; TEMP 97.8
--- NOTE | 2021-04-30 09:25 | P.DS ---
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 She presented to the hospital secondary to shortness of breath on 04/22/21. She was recently here from 04/07/21-04/18/21 and was diagnised with COVID during that hospital stay. She should have received 10 days f decadron at this point. She had been found to be COVID positive approximately 5 days before admission and wa s requiring increased oxygenation. She was unable to fully undergo her last hemodialysis treatment secondary to inadequate flow from the catheter. In the ER she underwent an extensive evaluation. Initial chest x-ray demonstrated fluid overload, EKG revealed atrial flutter with variable block at 90, and laboratory analysis was remarkable for a white blood cell count of 18.2, hemoglobin 10.7 (at baseline), platelet count 148 at her baseline, potassium of 6.2, BUN 100, and creatinine 9.56, she was again positive for COVID-19 via nucleic acid testing. Patient underwent emergent hemodialysis. Her O2 sats continued to worsen. A d-dimer was obtained. Elevated at 2.2. Lower extremity venous Dopplers were negative. She was started on a heparin drip with concerns for pulmonary embolism however we delayed initiating a CTA of the chest as they're hoping for renal recovery. She continued to require more oxygen. Case is discussed with pulmonary and nephrology and is felt she may have continued fluid overload. She will undergo another round of dialysis. She bit her tongue on 04/24 and her PTT >200 which resulted in development of significant tongue and neck hematoma. Her heparin drip had already been on hold secondary to elevated PTT and at this time was formally discontinued. She had debated hospice but after discussing with her family she reconsidered and decided to resume under going hemodialysis and continuing treatment. Patient received dialysis 04/22/21, 04/23/21, 04/24/21, 04/26/21, and 04/27/21 and next Dialysis session is currently planned to be completed 04/29/21. ENT evaluated patient and sent pt for CTA neck and chest. CTA chest was negative for pulmonary emboli. CTA of neck incidentally revealed total occlusion of internal left carotid artery. Consult was placed to vascular surgery and after cleared by ENT for tongue and neck hematoma, patient then placed on Plavix and to resume Eliquis. Vascular surgery evaluated patient, recommending no surgical intervention at this time and agreeing with plan for medication management with Plavix and resumption of Eliquis. Pt remained highly dependent on oxygen (15L high flow NC) and dialysis. She contemplated back and forth regarding wether or not to continue treatment or pursue hospice. Pt met with hospice nurse on multiple occassions. On the afternoon of 04/29/21 patient made the decision to stop treatment and no longer wanted to continue dialysis ending her treatment abrubtly. Washer And Capper Machine Operator went to bedside to talk with patient and ensured she understood that this meant she would lead to her . Pt was alert and oriented at this time and reported understanding of these consequences. I also discussed consenquences of discontinuation of dialysis with patient and her daughter, Kait. Arrangements were made for Ms. Veliz's brother and her daughter to both come in and further discuss hospice and visit with their loved. one. Per RN, pt continued to decline hospice services and peacefully overnight in her sleep. Pt was pronounced 04/30/21 with time of 2:15 AM. Plan - Discharge Summary Discharge Rx Participant: No New Discharge Prescriptions: No Action Metoprolol Tartrate [Lopressor] 25 mg PO BID@0800,1700 dronabinoL [Marinol] 2.5 mg PO BID@0600,1700 Calcium Carbonate [Tums] 500 mg PO BID@0800,1700 Apixaban [Eliquis] 2.5 mg PO BID@0600,1700 Levothyroxine Sodium [Levoxyl] 88 mcg PO DAILY@0600 Fluticasone/Vilanterol [Breo Ellipta 200-25 Mcg Inhaler] 1 puff INHALATION RT-DAILY@0600 Famotidine [Pepcid] 20 mg PO DAILY@0600 Ipratropium-Albuterol Nebulize [Duoneb 0.5 mg-3 mg/3 ml Soln] 3 ml INHALATION RT-QID PRN PRN Reason: Shortness Of Breath Or Wheezing Menthol-Zinc Oxide Oint [Calmoseptine Oint] 1 applic TOPICAL BID Cefdinir 300 mg PO BID@0600,2100 INSULIN ASPART (NovoLOG) [NovoLOG (formulary)] See Protocol SQ ACHS HYDROcodone/APAP 5-325MG [Decker 5-325] 1 tab PO QID PRN PRN Reason: Pain Sevelamer [Renvela] 800 mg PO TID@0800,1200,1700 Mirtazapine 7.5 mg PO HS@2100 Atorvastatin [Lipitor] 10 mg PO HS@2100 Amiodarone [Cordarone] 200 mg PO DAILY@0600 bisacodyL [Dulcolax] 10 mg RECTAL DAILY PRN PRN Reason: Constipation Liquacel 30 ml PO BID@1200,1700 dexAMETHasone ORAL [Hexadrol] 6 mg PO DAILY@0600 Discharge Medication List Amiodarone [Cordarone] 200 mg PO DAILY@0600 04/07/21 [History] Apixaban [Eliquis] 2.5 mg PO BID@0600,1700 04/07/21 [History] Atorvastatin [Lipitor] 10 mg PO HS@2100 04/07/21 [History] Calcium Carbonate [Tums] 500 mg PO BID@0800,1700 04/07/21 [History] Famotidine [Pepcid] 20 mg PO DAILY@0600 04/07/21 [History] Fluticasone/Vilanterol [Breo Ellipta 200-25 Mcg Inhaler] 1 puff INHALATION RT- DAILY@0600 04/07/21 [History] HYDROcodone/APAP 5-325MG [Decker 5-325] 1 tab PO QID PRN 04/07/21 [History] INSULIN ASPART (NovoLOG) [NovoLOG (formulary)] See Protocol SQ ACHS 04/07/21 [History] Ipratropium-Albuterol Nebulize [Duoneb 0.5 mg-3 mg/3 ml Soln] 3 ml INHALATION RT-QID PRN 04/07/21 [History] Levothyroxine Sodium [Levoxyl] 88 mcg PO DAILY@0600 04/07/21 [History] Metoprolol Tartrate [Lopressor] 25 mg PO BID@0800,1700 04/07/21 [History] Mirtazapine 7.5 mg PO HS@209904/07/21 [History] Sevelamer [Renvela] 800 mg PO TID@0800,1200,1700 04/07/21 [History] dronabinoL [Marinol] 2.5 mg PO BID@0600,1700 04/07/21 [History] Cefdinir 300 mg PO BID@0600,2100 04/22/21 [History] Liquacel 30 ml PO BID@1200,1700 04/22/21 [History] Menthol-Zinc Oxide Oint [Calmoseptine Oint] 1 applic TOPICAL BID 04/22/21 [History] bisacodyL [Dulcolax] 10 mg RECTAL DAILY PRN 04/22/21 [History] dexAMETHasone ORAL [Hexadrol] 6 mg PO DAILY@0600 04/22/21 [History] Activity/Diet/Wound Care/Special Instructions: Chair time @[facility] @1120 Discharge Disposition: - Preliminary Cause of Preliminary Cause of : acute kidney injury and covid resulting in repiratory failure <Jennifer Barakat - Last Filed: 04/30/21 14:19> Providers Date of admission: 04/22/21 18:14 Attending physician: Cheyanne Michel DO Consults: 04/22/21 18:14 Consult Physician Routine Consulting Provider: Brian Lozoya Consult Reason/Comments: renal failure, dialysis, hyperkalemia Do you want consulting provider notified?: Already Contacted 04/23/21 00:16 Consult Physician Routine Consulting Provider: Ant Larson Consult Reason/Comments: covid 19 infection, hypoxia, pleural effusion, volume overload Do you want consulting provider notified?: Yes, Notify in am 04/25/21 14:56 Consult Physician Routine Consulting Provider: Ton Santa Consult Reason/Comments: large hemtoma tongue and anterior neck (bite tongue on heparin) Do you want consulting provider notified?: Yes 04/26/21 13:26 Consult Physician Routine Consulting Provider: Josue Glover Consult Reason/Comments: neck hematoma Do you want consulting provider notified?: Yes Primary care physician: Randy Sanabria MD Hospital Course: I reviewed the documentation as provided by the JOSSY above, who is the original author of this note. I agree with the documented assessment and plan, with the following changes: None
--- NOTE | 2021-05-02 07:34 | CDI ---
Documentation Clarification Form Date: 05/01/2021 12:56:00 PM From: Juanita Mccracken Admit Date: 04/22/2021 06:14:00 PM Patient Name: Jailene Veliz Visit Number: [id number] Discharge Date: 04/30/2021 04:21:00 AM ATTENTION: The Clinical Documentation Specialists (CDI) and [facility] Coding Staff appreciate your assistance in clarifying documentation. Please respond to the clarification below the line at the bottom and electronically sign. The CDI & [facility] Coding staff will review the response and follow-up if needed. Please note: Queries are made part of the Legal Health Record. If you have any questions, please contact the author of this message via ITS. Dr. Cheyanne Michel Conflicting documentation has been found in the medical record. As attending physician, please provide clarification. 04/28/2021 [facility] Pulmonary - Acute hypoxic respiratory failure most likely secondary to fluid overload. Covid was an incidental finding as part of the preadmission requirement for ECF placement. Newly diagnosed Covid 19 infection patient is asymptomatic. DCS 04/30/2021 - Acute on Chronic respiratory failure with hypoxia secondary to current Covid 19 infection with COPD. Preliminary cause of acute kidney injury and Covid resulting in respiratory failure. History/Risk Factors: ATN, ESRD, dialysis dependent, missed dialysis. fluid overload, atrial fib and flutter, emphysema, oxygen dependence Clinical Indicators: BUN 100 CREAT 9.56 Potassium 6.2 O2 90% on high flow Treatment: High flow, Isolation, Dexamethazone, Zinc, Renal Diet and dialysis Please clarify which diagnosis is most appropriate for PDX: [ ] Acute and Chronic diastolic CHF [ ] Covid 19 infection [ ] Other (please specify) [ ] Unable to determine Please send to Dr. Barakat who discharged the patient, I did not see her after 04/26 and all inquiries should go to the discharging provider. TORID
--- NOTE | 2021-05-07 09:10 | CDI ---
Documentation Clarification Form Date: 05/01/2021 12:56:00 PM From: Juanita Mccracken Admit Date: 04/22/2021 06:14:00 PM Patient Name: Jailene Veliz Visit Number: [id number] Discharge Date: 04/30/2021 04:21:00 AM ATTENTION: The Clinical Documentation Specialists (CDI) and [facility] Coding Staff appreciate your assistance in clarifying documentation. Please respond to the clarification below the line at the bottom and electronically sign. The CDI & [facility] Coding staff will review the response and follow-up if needed. Please note: Queries are made part of the Legal Health Record. If you have any questions, please contact the author of this message via ITS. Dr. Jennifer Barakat Conflicting documentation has been found in the medical record. As attending physician, please provide clarification. 04/28/2021 [facility] Pulmonary - Acute hypoxic respiratory failure most likely secondary to fluid overload. Covid was an incidental finding as part of the preadmission requirement for ECF placement. Newly diagnosed Covid 19 infection patient is asymptomatic. DCS 04/30/2021 - Acute on Chronic respiratory failure with hypoxia secondary to current Covid 19 infection with COPD. Preliminary cause of acute kidney injury and Covid resulting in respiratory failure. History/Risk Factors: ATN, ESRD, dialysis dependent, missed dialysis. fluid overload, atrial fib and flutter, emphysema, oxygen dependence Clinical Indicators: BUN 100 CREAT 9.56 Potassium 6.2 O2 90% on high flow Treatment: High flow, Isolation, Dexamethazone, Zinc, Renal Diet and dialysis Please clarify which diagnosis is most appropriate for PDX: [x] Acute and Chronic diastolic CHF [ ] Covid 19 infection [ ] Other (please specify) [ ] Unable to determine MTDD
== END 2021-04-30 04:21 | disposition expired | DRG 291 ==
LOC: EC 15:49 → 3SCARD 18:14
PROVIDERS: ADMIT Internal Medicine; ATTEND Internal Medicine
PROC: 5A1D70Z Performance of Urinary Filtration, Intermittent, Less than 6 Hours Per Day (ICD-10-PCS; principal; 2021-04-22)
PROC: 5A0955A Assistance with Respiratory Ventilation, Greater than 96 Consecutive Hours, High Flow/Velocity Cannula (ICD-10-PCS; 2021-04-23)
DX: I13.2 Hypertensive heart and chronic kidney disease with heart failure and with stage 5 chronic kidney disease, or end stage renal disease (principal); I50.33 Acute on chronic diastolic (congestive) heart failure; J96.21 Acute and chronic respiratory failure with hypoxia; J12.82 Pneumonia due to coronavirus disease 2019; N17.0 Acute kidney failure with tubular necrosis; N18.6 End stage renal disease; U07.1 COVID-19; I48.92 Unspecified atrial flutter; D63.1 Anemia in chronic kidney disease; E03.9 Hypothyroidism, unspecified; E11.22 Type 2 diabetes mellitus with diabetic chronic kidney disease; E78.5 Hyperlipidemia, unspecified; E87.5 Hyperkalemia; I08.1 Rheumatic disorders of both mitral and tricuspid valves; Z99.81 Dependence on supplemental oxygen; I27.20 Pulmonary hypertension, unspecified; J43.9 Emphysema, unspecified; L89.152 Pressure ulcer of sacral region, stage 2; Z66 Do not resuscitate; I48.0 Paroxysmal atrial fibrillation; Z79.01 Long term (current) use of anticoagulants; E83.9 Disorder of mineral metabolism, unspecified; Z99.2 Dependence on renal dialysis; I65.23 Occlusion and stenosis of bilateral carotid arteries; Z86.73 Personal history of transient ischemic attack (TIA), and cerebral infarction without residual deficits; S00.532A Contusion of oral cavity, initial encounter; S10.83XA Contusion of other specified part of neck, initial encounter; I44.30 Unspecified atrioventricular block; X58.XXXA Exposure to other specified factors, initial encounter; S01.552A Open bite of oral cavity, initial encounter; K14.6 Glossodynia; K21.9 Gastro-esophageal reflux disease without esophagitis; R13.10 Dysphagia, unspecified; J34.2 Deviated nasal septum; R79.1 Abnormal coagulation profile; Z79.4 Long term (current) use of insulin; Z79.890 Hormone replacement therapy; Z79.899 Other long term (current) drug therapy; Z91.15 Patient's noncompliance with renal dialysis; Z53.29 Procedure and treatment not carried out because of patient's decision for other reasons; Z90.49 Acquired absence of other specified parts of digestive tract; Z98.890 Other specified postprocedural states
CPT/HCPCS: 36415; 70491; 71045; 71275; 80048; 80053; 82728; 83540; 83550; 83615; 83735; 84100; 84132; 84145; 85025; 85027; 85379; 85610; 85730; 86140; 86706; 87040; 87340; 87635; 90935; 93005; 93880; 93970; 94640; 96374; 96375; 99285